=== PATIENT | female | born 1935 | race Caucasian/White ===

== ENCOUNTER → 2016-05-17 | Outpatient (CLI) | payer OTHER ==
[~2016-05-17] MED LIST: AMLO10TA2 PO; ASPEC81 PO; CRS20 PO; ERGO1CAP35 PO; HYDR-4715 PO; METO50TA7 PO; NTRGSL/4 UT; POTA10TA PO
[2016-05-17 13:02] LABS: HEMATOCRIT 51.7 % (37-47); MEAN CORPUSCULAR HGB CONC 35.2 g/dl (32-36); MEAN PLATELET VOLUME 11.1 fL (7.4-10.4); PLATELET COUNT 182 K/uL (130-400); RED BLOOD COUNT 5.68 M/uL (4.2-5.4); WHITE BLOOD COUNT 6.19 K/uL (4.8-10.8)
[2016-05-17 13:09] LABS: BLOOD UREA NITROGEN 21 mg/dl (7-18); BUN/CREATININE RATIO 13.8 (10-20); CALCIUM 9.9 mg/dl (8.5-10.1); CARBON DIOXIDE 27 mmol/L (21-32); CHLORIDE 108 mmol/L (98-107); GLUCOSE 97 mg/dl (70-99); PHOSPHORUS 2.5 mg/dl (2.5-4.9); POTASSIUM 3.5 mmol/L (3.5-5.1); SODIUM 145 mmol/L (136-145)
== END | disposition home or self-care (01) ==
LOC: C.LAB1850 11:29
PROVIDERS: ATTEND Internal Medicine Nephrology
DX: I10 Essential (primary) hypertension (principal); N25.81 Secondary hyperparathyroidism of renal origin; N18.3 Chronic kidney disease, stage 3 (moderate); E55.9 Vitamin D deficiency, unspecified; E21.3 Hyperparathyroidism, unspecified

== ENCOUNTER → 2016-05-21 | Outpatient (CLI) | payer OTHER ==
--- NOTE | 2016-05-21 20:28 | DIAGNOSTIC IMAGING REPORT ---
PARATHYROID IMAGING CLINICAL HISTORY: HYPERPARATHYROIDISM, UNSPECIFIED COMPARISON STUDY: No previous studies for comparison. FINDINGS: The patient was injected with 21.3 mCi of technetium 99m Cardiolite. 15 minute and three-hour postinjection imaging was performed. SPECT imaging was also acquired. There are no foci of increased activity viewed as suspicious for a parathyroid adenoma. IMPRESSION: No scintigraphic evidence of a parathyroid adenoma. Electronically signed by: Pete White M.D. 05/21/2016 8:27 PM Dictated Date/Time: 05/21/2016 8:24 PM
== END | disposition home or self-care (01) ==
LOC: C.NUCL 14:57
PROVIDERS: ATTEND Surgery
DX: E21.3 Hyperparathyroidism, unspecified (principal)

== ENCOUNTER → 2016-07-18 | Outpatient (CLI) | payer OTHER ==
--- NOTE | 2016-07-18 15:03 | DIAGNOSTIC IMAGING REPORT ---
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 COMPARISON: None. DISCUSSION: No fractures are visualized. No radiopaque foreign bodies are evident. There is Achilles insertional and plantar calcaneal spurring. There is minor calcification within the posterior plantar fascia. IMPRESSION: 1. No acute fractures 2. No destructive lesions 3. Calcaneal spurring 4. Posterior plantar fascial calcification 5. No foreign bodies identified Electronically signed by: Pete White M.D. 07/18/2016 3:02 PM Dictated Date/Time: 07/18/2016 3:01 PM
== END ==
LOC: C.RAD 14:36
PROVIDERS: ATTEND Internal Medicine
DX: M79.672 Pain in left foot (principal); M77.32 Calcaneal spur, left foot

== ENCOUNTER → 2016-08-13 | Outpatient (CLI) | payer OTHER ==
[2016-08-13 12:14] LABS: HEMATOCRIT 49.6 % (37-47); MEAN CELL VOLUME 90.5 fL (80-100); MEAN CORPUSCULAR HEMOGLOBIN 31.8 pg (25-34); MEAN CORPUSCULAR HGB CONC 35.1 g/dl (32-36); MEAN PLATELET VOLUME 11.4 fL (7.4-10.4); PLATELET COUNT 185 K/uL (130-400); RED BLOOD COUNT 5.48 M/uL (4.2-5.4); WHITE BLOOD COUNT 7.31 K/uL (4.8-10.8)
[2016-08-13 12:17] LABS: URINE APPEARANCE CLEAR (CLEAR); URINE BILIRUBIN NEG (NEG); URINE COLOR DK YELLOW; URINE NITRITE NEG (NEG); URINE PH 5.5 (4.5-7.5); URINE SPECIFIC GRAVITY 1.016 (1.000-1.030); UROBILINOGEN NEG (NEG)
[2016-08-13 12:23] LABS: MANUAL MICROSCOPIC REQUIRED? NO; REVIEW REQ? YES
[2016-08-13 12:38] LABS: URINE PROTIEN/CREAT RATIO 0.2 (0-0.2); URINE TOTAL PROTEIN 51.7 mg/dl (0-11.9)
[2016-08-13 12:51] LABS: BLOOD UREA NITROGEN 20 mg/dl (7-18); BUN/CREATININE RATIO 13.6 (10-20); CARBON DIOXIDE 26 mmol/L (21-32); CHLORIDE 107 mmol/L (98-107); GLUCOSE 105 mg/dl (70-99); PHOSPHORUS 2.3 mg/dl (2.5-4.9); POTASSIUM 3.2 mmol/L (3.5-5.1); SODIUM 142 mmol/L (136-145)
[2016-08-13 12:55] LABS: CALCIUM 10.3 mg/dl (8.5-10.1)
== END | disposition home or self-care (01) ==
LOC: C.LAB1850 10:23
PROVIDERS: ATTEND Internal Medicine Nephrology
DX: I12.9 Hypertensive chronic kidney disease with stage 1 through stage 4 chronic kidney disease, or unspecified chronic kidney disease (principal); N18.3 Chronic kidney disease, stage 3 (moderate); N25.81 Secondary hyperparathyroidism of renal origin; D75.1 Secondary polycythemia; E55.9 Vitamin D deficiency, unspecified

== ENCOUNTER → 2017-02-06 | Outpatient (CLI) | payer OTHER ==
[2017-02-06 14:58] LABS: HEMATOCRIT 50.2 % (37-47); MEAN CELL VOLUME 89.8 fL (80-100); MEAN CORPUSCULAR HEMOGLOBIN 31.7 pg (25-34); MEAN CORPUSCULAR HGB CONC 35.3 g/dl (32-36); PLATELET COUNT 186 K/uL (130-400); RED BLOOD COUNT 5.59 M/uL (4.2-5.4); WHITE BLOOD COUNT 8.85 K/uL (4.8-10.8)
[2017-02-06 15:05] LABS: BLOOD UREA NITROGEN 19 mg/dl (7-18); CALCIUM 10.2 mg/dl (8.5-10.1); CARBON DIOXIDE 25 mmol/L (21-32); CHLORIDE 109 mmol/L (98-107); CREATININE 1.38 mg/dl (0.60-1.20); GLUCOSE 100 mg/dl (70-99); POTASSIUM 3.6 mmol/L (3.5-5.1); SODIUM 142 mmol/L (136-145)
[2017-02-06 18:27] LABS: URINE APPEARANCE CLOUDY (CLEAR); URINE BILIRUBIN NEG (NEG); URINE EPITHELIAL CELL AUTO 0-5 /lpf (0-5); URINE NITRITE NEG (NEG); URINE PH 5.5 (4.5-7.5); URINE SPECIFIC GRAVITY 1.022 (1.000-1.030); UROBILINOGEN NEG (NEG)
[2017-02-06 18:31] LABS: MANUAL MICROSCOPIC REQUIRED? NO; REVIEW REQ? YES; URINE COLOR BROWN
== END | disposition home or self-care (01) ==
LOC: C.LABFOXMH 14:39
PROVIDERS: ATTEND Internal Medicine Hospice and Palliative Medicine
DX: N30.91 Cystitis, unspecified with hematuria (principal); R71.8 Other abnormality of red blood cells

== ENCOUNTER → 2017-08-08 | Outpatient (CLI) | payer OTHER ==
[~2017-08-08] MED LIST changes: -METO50TA7 PO; +METO50TA8 PO
[2017-08-08 10:19] LABS: HEMATOCRIT 50.5 % (37-47); HEMOGLOBIN 17.7 g/dL (12.0-16.0); MEAN CELL VOLUME 91.5 fL (80-100); MEAN CORPUSCULAR HEMOGLOBIN 32.1 pg (25-34); MEAN PLATELET VOLUME 11.3 fL (7.4-10.4); PLATELET COUNT 183 K/uL (130-400); RED CELL DISTRIBUTION WIDTH CV 13.8 % (11.5-14.5); RED CELL DISTRIBUTION WIDTH SD 46.6 fL (36.4-46.3); WHITE BLOOD COUNT 4.82 K/uL (4.8-10.8)
[2017-08-08 10:32] LABS: ALT/SGPT 40 U/L (12-78); BLOOD UREA NITROGEN 25 mg/dl (7-18); CALCIUM 10.2 mg/dl (8.5-10.1); CARBON DIOXIDE 29 mmol/L (21-32); CREATININE 1.45 mg/dl (0.60-1.20); GLUCOSE 93 mg/dl (70-99); POTASSIUM 3.5 mmol/L (3.5-5.1); SODIUM 141 mmol/L (136-145)
[2017-08-08 10:35] LABS: ALKALINE PHOSPHATASE 99 U/L (45-117); AST/SGOT 25 U/L (15-37); TOTAL PROTEIN 7.5 gm/dl (6.4-8.2)
== END | disposition home or self-care (01) ==
LOC: C.LAB1850 09:12
PROVIDERS: ATTEND Internal Medicine Nephrology
DX: I12.9 Hypertensive chronic kidney disease with stage 1 through stage 4 chronic kidney disease, or unspecified chronic kidney disease (principal); N25.81 Secondary hyperparathyroidism of renal origin; N18.3 Chronic kidney disease, stage 3 (moderate); E55.9 Vitamin D deficiency, unspecified

== ENCOUNTER 2022-07-01 14:28 | Inpatient (IN) ==
--- NOTE | 2022-07-01 15:42 | Emergency Department Note ---
History of Present Illness General Chief complaint: Finger Pain Stated complaint: RIGHT FINGER INJURY Time Seen by Provider: 07/01/22 14:54 History of Present Illness 87 year old female who presents to ED today with c/o right 5th finger infection. Patient states she bite her fingernail down to the cuticle. She developed signs of infection with redness and swelling on . She was started on Bactrim Saturday. Last night her finger turned black. She denies significant pain of the area. She reports limited ROM secondary to swelling. She denies fever/chills, nausea/vomiting. No history of diabetes. She is a former smoker. Home Medications Medication Instructions Recorded Confirmed Type amlodipine 10 mg tablet 10 mg PO DAILY 12/08/18 03/23/22 History hydralazine 25 mg tablet 25 mg PO BID 12/08/18 03/23/22 History nitroglycerin 0.4 mg sublingual 0.4 mg sublingual Q5M PRN chest 12/08/18 03/23/22 History tablet pain rosuvastatin 20 mg tablet 20 mg PO DAILY 02/25/19 03/23/22 History lactobacillus combination no.8 3 3,000 mmu cells PO UD 03/04/19 03/23/22 History billion cell capsule (Adult Probiotic) apixaban 5 mg tablet (Eliquis) 5 mg PO BID 12/08/19 03/23/22 History magnesium oxide 400 mg (241.3 mg 400 mg PO DAILY 01/05/20 03/23/22 History magnesium) tablet cinacalcet 30 mg tablet 30 mg PO DAILY #90 tabs 06/15/20 03/23/22 Rx potassium chloride 10 mEq 30 meq PO BID 06/15/20 03/23/22 History tablet,extended release cholecalciferol (vitamin D3) 50 50 mcg PO DAILY #90 caps 02/17/21 03/23/22 Rx mcg (2,000 unit) capsule (D3-2000) metoprolol succinate 50 mg 50 mg PO DAILY 01/18/22 03/23/22 History tablet,extended release 24 hr magnesium glycinate 400 mg PO 02/15/22 03/23/22 History Allergies Allergy/AdvReac Type Severity Reaction Status Date / Time adhesive Allergy Unknown RASH Verified 03/23/22 12:53 codeine Allergy Unknown SICK Verified 03/23/22 12:53 latex Allergy Unknown "Rash, Verified 03/23/22 12:53 welts" pineapple Allergy Unknown . Verified 03/23/22 12:53 Past Med/Surg History Medical History History of abdominal aortic aneurysm (AAA) Multiple thyroid nodules Vitamin D deficiency Surgical History History of appendectomy History of heart artery stent History of parathyroid surgery Family History Mother Colon cancer Father Heart problem Sister Heart problem Colon cancer Social History Smoking Status: Former smoker Hx Alcohol Use: Yes Alcohol type: other Preferred Language: Welsh marital status: / Feels Safe at Home: Yes Physical Exam Vital Signs Vital Signs - 24 hr 07/01/22 14:34 07/01/22 15:02 07/01/22 18:11 Temperature 36.5 C Temperature Source Temporal Artery Scan Pulse Rate 100 H Pulse Rate [Left Finger] 92 H 99 H Pulse Rhythm [Left Finger] Regular Regular Pulse Strength [Left Finger] Normal Normal Respiratory Rate 18 20 20 Respiratory Effort / Characteristics Non-Labored Spontaneous Non-Labored Spontaneous Respiratory Depth Normal Normal Normal Respiratory Pattern Regular Blood Pressure 116/80 Blood Pressure [Right Arm] 127/84 125/88 Blood Pressure Mean 92 Blood Pressure Mean [Right Arm] 98 100 Blood Pressure Position Sitting Blood Pressure Position [Right Arm] Sitting Sitting Pulse Oximetry 95 100 95 Oxygen Delivery Method Room Air Room Air Room Air Sepsis Recent Fever Within 48 Hours No Sepsis New/Unexplained Change in Mental Status No Sepsis Action Taken by Nursing No Action Required Constitutional: alert and oriented x3. no acute distress. Respiratory: lungs are clear to auscultation without wheezes, rhonchi, or rales bilaterally. equal chest rise. normal respiratory effort, no accessory muscle use. Cardiovascular: normal heart sounds without murmur. regular rate and rhythm. GI: abdomen is soft, nontender. nl bowel sounds present throughout. MSK: distal tip of right 5th finger necrotic with abscess and surrounding erythema and purulent drainage. Tender to palpation. No crepitus. Peripheral vascular: upper extremities warm and well perfused with palpable radial pulses. Psych:appropriate mood and affect. Course Administered Medications Vancomycin HCl 1,500 mg/ (Sodium Chloride) 530 mls @ 200 mls/hr IV NOW ONE Stop: 07/01/22 19:42 Last Admin: 07/01/22 18:41 Dose: 200 mls/hr Documented By: CINDA Discontinued Medications Ampicillin Sodium/Sulbactam Sodium 1,500 mg/ Sodium Chloride 104 mls @ 200 mls/hr IV NOW STA; Protocol Stop: 07/01/22 17:35 Last Infusion: 07/01/22 18:41 Dose: 0 mls/hr Documented By: Admin: 07/01/22 18:08 Dose: 200 mls/hr Documented By: CINDA Medical Decision Making Differential Diagnosis paronychia, abscess, osteomyelitis, gas gangrene as well as other pathologies Laboratory Data Attestation: I reviewed the patient's lab results. 07/01/22 14:50 07/01/22 14:50 Lab Results 07/01/22 07/01/22 07/01/22 Range/Units 14:50 14:50 14:50 WBC 9.03 (4.8-10.8) K/ul RBC 5.78 H (4.20-5.40) M/uL Hgb 16.8 H (12.0-16.0) g/dl Hct 49.4 H (37.0-47.0) % MCV 85.5 (80.0-100.0) fL MCH 29.1 (25.0-34.0) pg MCHC 34.0 (32.0-36.0) g/dL RDW Std Deviation 54.8 H (36.4-46.3) fL RDW Coeff of Margarita 18.6 H (11.5-14.5) % Plt Count 210 (130-400) K/uL MPV 11.1 (9.4-12.4) fL Immature Gran % (Auto) 0.3 % Neut % (Auto) 72.0 % Lymph % (Auto) 15.4 % [place] % (Auto) 11.5 % Eos % (Auto) 0.2 % Baso % (Auto) 0.6 % Neut # (Auto) 6.50 (1.40-6.50) K/uL Lymph # (Auto) 1.39 (1.2-3.4) K/uL [place] # (Auto) 1.04 H (0.11-0.59) K/uL Eos # (Auto) 0.02 (0-0.50) K/uL Baso # (Auto) 0.05 (0-0.2) K/uL Immature Gran # (Auto) 0.03 (0.01-0.20) K/uL Sodium 133 L (136-145) mmol/L Potassium 4.0 (3.5-5.1) mmol/L Chloride 101 (98-107) mmol/L Carbon Dioxide 20 L (21-32) mmol/L Anion Gap 12 H (3-11) BUN 28 H (6-23) mg/dl Creatinine 1.75 H (0.6-1.2) mg/dl Est Cr Clr Drug Dosing 21.9 ml/min Est GFR ( Amer) 30.2 ml/min Est GFR (Non-Af Amer) 26.1 ml/min BUN/Creatinine Ratio 16.0 (10-20) Glucose 88 (70-99(Fasting)) mg/dl Lactate (0.4-2.0) mmol/L Calcium 9.8 (8.5-10.1) mg/dl Total Bilirubin 1.2 H (0.2-1.0) mg/dl AST 24 (13-39) U/L ALT 20 (7-52) U/L Alkaline Phosphatase 86 (34-104) U/L Total Protein 8.1 (6.0-8.3) gm/dl Albumin 4.5 (3.4-5.0) gm/dl Globulin 3.6 (2.5-4.0) gm/dl Albumin/Globulin Ratio 1.3 (0.9-2) Procalcitonin < 0.05 (0-0.5) ng/ml SARS-CoV-2, RNA, NAAT (NEGATIVE) 07/01/22 07/01/22 Range/Units 16:14 17:21 WBC (4.8-10.8) K/ul RBC (4.20-5.40) M/uL Hgb (12.0-16.0) g/dl Hct (37.0-47.0) % MCV (80.0-100.0) fL MCH (25.0-34.0) pg MCHC (32.0-36.0) g/dL RDW Std Deviation (36.4-46.3) fL RDW Coeff of Margarita (11.5-14.5) % Plt Count (130-400) K/uL MPV (9.4-12.4) fL Immature Gran % (Auto) % Neut % (Auto) % Lymph % (Auto) % [place] % (Auto) % Eos % (Auto) % Baso % (Auto) % Neut # (Auto) (1.40-6.50) K/uL Lymph # (Auto) (1.2-3.4) K/uL [place] # (Auto) (0.11-0.59) K/uL Eos # (Auto) (0-0.50) K/uL Baso # (Auto) (0-0.2) K/uL Immature Gran # (Auto) (0.01-0.20) K/uL Sodium (136-145) mmol/L Potassium (3.5-5.1) mmol/L Chloride (98-107) mmol/L Carbon Dioxide (21-32) mmol/L Anion Gap (3-11) BUN (6-23) mg/dl Creatinine (0.6-1.2) mg/dl Est Cr Clr Drug Dosing ml/min Est GFR ( Amer) ml/min Est GFR (Non-Af Amer) ml/min BUN/Creatinine Ratio (10-20) Glucose (70-99(Fasting)) mg/dl Lactate 1.2 (0.4-2.0) mmol/L Calcium (8.5-10.1) mg/dl Total Bilirubin (0.2-1.0) mg/dl AST (13-39) U/L ALT (7-52) U/L Alkaline Phosphatase (34-104) U/L Total Protein (6.0-8.3) gm/dl Albumin (3.4-5.0) gm/dl Globulin (2.5-4.0) gm/dl Albumin/Globulin Ratio (0.9-2) Procalcitonin (0-0.5) ng/ml SARS-CoV-2, RNA, NAAT NEGATIVE (NEGATIVE) Imaging Data Attestation: I personally reviewed and interpreted this imaging study as follows: My Impression: Right 5th finger xray per my interpretation demonstrates no acute fracture. No gas. Radiologist's Impression: Finger X-Ray 07/01/22 15:22 XR finger(s) RT min 2V CLINICAL HISTORY: right 5th fingerinfection. COMPARISON STUDY: None. FINDINGS: Soft tissue swelling within the distal right fifth finger. No destructive changes to suggest an osteomyelitis. No fracture or dislocation. Mild osteoarthritis. IMPRESSION: Distal soft tissue swelling within the right fifth finger. No underlying bony abnormality. ACT 112: Negative or not required by law. Electronically signed by: Champ Payne M.D. 07/01/2022 3:41 PM MDM Narrative 87 year old female who presents to ED today with c/o right 5th finger infection. Review of pertinent visits and patient history performed. Vital signs in ED demonstrate mild tachycardia otherwise within normal limits, afebrile. Given presentation, IV access was established and labs were drawn. CBC without evidence of leukocytosis or bandemia. Hgb 16 consistent with history of polycythemia. CMP demonstrates mild hyponatremia 133. Creatinine mildly elevated at 1.7 (from 1.4 on 06/25). Lactate and Procal negative. A right finger Xray was obtained and unremarkable. Clinically, patient is nontoxic appearing in no acute distress. She is afebrile. Right 5th finger concerning for cellulitis with abscess and evidence of necrotic tissue. Erythema and edema extends to MCP joint. Given clinical presentation as well as failed outpatient antibiotics with concern for possible osteomyelitis, I feel admission to hospital for further work up and IV antibiotics is warranted. Discussed with patient who verbalized understanding. Case was discussed with hospitalist, Dr. Curiel, who reviewed case and graciously accepted patient to his service. Patient was given empiric Vancomycin and Unasyn while in ED. She declined need for pain medications. Patient was admitted to hospital in stable condition. Case was discussed with attending, Dr. Hernandez who agrees with work up and treatment plan. Impression & Plan Cellulitis of right hand Discharge Plan Visit Data Chief Complaint: Finger Pain Stated Complaint: RIGHT FINGER INJURY ED Provider: La Hernandez ED Midlevel Provider: Fabiola Syed Discharge Problem: Cellulitis of right hand Patient Disposition: Admitted As Inpatient Forms Stand Alone Forms: My [facility] [employer] Prescriptions Prescriptions: No Action hydralazine 25 mg tablet 25 mg PO BID nitroglycerin 0.4 mg tablet, sublingual 0.4 mg SL Q5M PRN (Reason: chest pain) amlodipine 10 mg tablet 10 mg PO DAILY potassium chloride 10 mEq tablet extended release 30 meq PO BID Adult Probiotic 3 billion cell capsule 3,000 mmu cells PO UD rosuvastatin 20 mg tablet 20 mg PO DAILY magnesium oxide 400 mg (241.3 mg magnesium) tablet 400 mg PO DAILY cholecalciferol (vitamin D3) [D3] 50 mcg (2,000 unit) capsule 50 mcg PO DAILY Qty: 90 2RF Eliquis 5 mg tablet 5 mg PO BID cinacalcet 30 mg tablet 30 mg PO DAILY Qty: 90 3RF magnesium glycinate 100 mg magnesium capsule 400 mg PO metoprolol succinate 50 mg tablet extended release 24 hr 50 mg PO DAILY Referrals Referrals: Juan Mcqueen [Primary Care Provider] -
--- NOTE | 2022-07-01 15:43 | XRay Report ---
XR finger(s) RT min 2V CLINICAL HISTORY: right 5th fingerinfection. COMPARISON STUDY: None. FINDINGS: Soft tissue swelling within the distal right fifth finger. No destructive changes to sugges t an osteomyelitis. No fracture or dislocation. Mild osteoarthritis. IMPRESSION: Distal soft tissue swelling within the right fifth finger. No underlying bony abnormalit y. ACT 112: Negative or not required by law. Electronically signed by: Champ Payne M.D. 07/01/2022 3:41 PM
[2022-07-01 16:12] LABS: Basophils # (auto) 0.05 K/uL (0-0.2); Basophils % (auto) 0.6 %; Eosinophils # (auto) 0.02 K/uL (0-0.50); Eosinophils % (auto) 0.2 %; Hematocrit (blood only) 49.4 % (37.0-47.0); Hemoglobin 16.8 g/dl (12.0-16.0); Immature Granulocytes # (auto) 0.03 K/uL (0.01-0.20); Immature Granulocytes % (auto) 0.3 %; Lymphocytes # (auto) 1.39 K/uL (1.2-3.4); Lymphocytes % (auto) 15.4 %; Mean Corpuscular Hemoglobin 29.1 pg (25.0-34.0); Mean Corpuscular Volume 85.5 fL (80.0-100.0); Mean Platelet Volume 11.1 fL (9.4-12.4); Monocytes # (auto) 1.04 K/uL (0.11-0.59); Monocytes % (auto) 11.5 %; Platelet Count 210 K/uL (130-400); RDW Coefficient of Variation 18.6 % (11.5-14.5); RDW Standard Deviation 54.8 fL (36.4-46.3); Red Blood Count 5.78 M/uL (4.20-5.40); White Blood Count 9.03 K/ul (4.8-10.8)
[2022-07-01 16:23] LABS: Albumin Globulin Ratio 1.3 (0.9-2); Albumin Level 4.5 gm/dl (3.4-5.0); Bilirubin,Total 1.2 mg/dl (0.2-1.0); Calcium 9.8 mg/dl (8.5-10.1); Creatinine Clr Calc Pharmacy 21.9 ml/min; Est GFR (African American) 30.2 ml/min; Est GFR (Non-African American) 26.1 ml/min; Globulin 3.6 gm/dl (2.5-4.0); Total Protein 8.1 gm/dl (6.0-8.3)
[2022-07-01] MEDS ORDERED: AMPICILLIN/SULBACTAM SOD 1,500 MG in 0.9 % SODIUM CHLORIDE 100 ML IV STA (17:04)
[2022-07-01] MEDS ORDERED: VANCOMYCIN HCL 1,500 MG in SODIUM CHLORIDE 0.9% 500 ML IV ONE (17:04)
[2022-07-01] MEDS ORDERED: VANCOMYCIN CONSULT ACTIVE PRN ×2 (17:04→19:47)
--- NOTE | 2022-07-01 17:20 | History & Physical Report ---
Date of Service July 01, 2022 Assessment & Plan (1) Cellulitis of right hand: Plan: Right fifth distal cellulitis, dominant hand No leukocytosis Hemoglobin 16.8, baseline 16.517.3 with a history of polycythemia Sodium, potassium normal Procalcitonin normal Finger x-ray: Digital soft tissue swelling within the right fifth finger, no underlying bony abnormality Photo of finger at time of admission attached to H&P physical exam MRI pending, patient does have additional erythema at the MCP. Full range of motion without pain at bedside assessment. Cap refill is brisk proximal to the DIP CAD with history of LAD stent Continue statin, rosuvastatin Patient is not on an CATHERINE/ARB/spironolactone or antiplatelet Former tobacco use Patient reports she has followed with lead auditor and when her Eliquis was started she was told to stop taking aspirin. Unclear if she has a RAMEZ or bare- metal stent, she will have her stent card brought in from home if available. She has not had any chest pain or ischemia recently. AAA Repair 2006 -With Dr. Nguyen, no problems since. CKD 3 Baseline creatinine around 1.9, admitting creatinine 1.75 Renal impairment due to vascular disease and hypertension With history of left renal artery stenosis not amenable to [place] [facility] [place] right renal artery A-fib Rate controlled, no RVR Is in rate controlled A-fib on admission No evidence of RVR, acute ischemia, or new dysrhythmia. Continue Eliquis. Hold a.m. dose pending surgical evaluation Hypertension BP previously well controlled Continue amlodipine 10 mg daily Continue hydralazine 25 mg twice daily Continue metoprolol 50 mg succinate daily Hyperlipidemia Continue rosuvastatin Hyperparathyroidism S/p resection of lower thyroid gland 2005 Continue Cinacalcet, as outpatient PTH was uptrending DVT prophylaxis: Anticoagulated Diet: N.p.o. at midnight, heart healthy on admission Disposition: Medical/surgical, history of A-fib but no acute ischemia or RVR. If develops RVR transfer to telemetry CODE STATUS: Full code discussed with patient at bedside (2) CAD (coronary artery disease): (3) Polycythemia: (4) Chronic kidney disease, stage 3: (5) Hypertension: (6) Secondary hyperparathyroidism: History of Present Illness Primary Care Provider: Juan Ivory is an 87-year-old female with past medical history of Kriss's, CAD, former tobacco use, polycythemia, CKD 3, hypertension who presented to the ER with a right fifth finger infection after she was bite in her fingernails down to the cuticle. Had redness and swelling for the last 4 days, started Bactrim 2 days ago but overnight her finger turned black. Has no pain, no fever or chills Monika is seen at the bedside. Reports symptoms started last Saturday. Thr morning was seen by PA at [facility] for R 5th digit swelling and was prescribed a topical antibiotic which she used and . Also used triple antibiotic and didn't seem to get much worse until Saturday morning saw the PA again. Was but on Bactrim DS which she has taken for 2 day hartmann dtolearing well. In the last two days the finger has gotten more purple/black instead of red and swollen. Also has some redness and swelling but no pain at the 5th MCP. No RoM pain. Severe diarrhea with Keflex, but did not have a skin or respiratory reaction to this On eliquis for Afib. Took eliquis this morning. Does not feel her A-fib, is not sure if she is in it or not. Denies any fever, chills, sweats, chest pain, chest pressure hydralazine changed to 10am/pm toprol 50 and takes 25mg BID succinate rosuvatatin 20 cincalcet 30mg Medical History: Reviewed Medications: Reviewed Surgical History: Reviewed Family history: Reviewed Allergies: Reviewed Social History: No current tobacco/etoh. Code Status: Full Code Allergies Allergy/AdvReac Type Severity Reaction Status Date / Time adhesive Allergy Unknown RASH Verified 03/23/22 12:53 codeine Allergy Unknown SICK Verified 03/23/22 12:53 latex Allergy Unknown "Rash, Verified 03/23/22 12:53 welts" pineapple Allergy Unknown . Verified 03/23/22 12:53 Home Medications Medication Instructions Recorded Confirmed Type amlodipine 10 mg tablet 10 mg PO DAILY 12/08/18 03/23/22 History hydralazine 25 mg tablet 25 mg PO BID 12/08/18 03/23/22 History nitroglycerin 0.4 mg sublingual 0.4 mg sublingual Q5M PRN chest 12/08/18 03/23/22 History tablet pain rosuvastatin 20 mg tablet 20 mg PO DAILY 02/25/19 03/23/22 History lactobacillus combination no.8 3 3,000 mmu cells PO UD 03/04/19 03/23/22 History billion cell capsule (Adult Probiotic) apixaban 5 mg tablet (Eliquis) 5 mg PO BID 12/08/19 03/23/22 History magnesium oxide 400 mg (241.3 mg 400 mg PO DAILY 01/05/20 03/23/22 History magnesium) tablet cinacalcet 30 mg tablet 30 mg PO DAILY #90 tabs 06/15/20 03/23/22 Rx potassium chloride 10 mEq 30 meq PO BID 06/15/20 03/23/22 History tablet,extended release cholecalciferol (vitamin D3) 50 50 mcg PO DAILY #90 caps 02/17/21 03/23/22 Rx mcg (2,000 unit) capsule (D3-2000) metoprolol succinate 50 mg 50 mg PO DAILY 01/18/22 03/23/22 History tablet,extended release 24 hr magnesium glycinate 400 mg PO 02/15/22 03/23/22 History Past Med/Surg History Medical History History of abdominal aortic aneurysm (AAA) Multiple thyroid nodules Vitamin D deficiency Surgical History History of appendectomy History of heart artery stent History of parathyroid surgery Family History Mother Colon cancer Father Heart problem Sister Heart problem Colon cancer Social History Smoking Status: Former smoker Hx Alcohol Use: Yes Alcohol type: other Preferred Language: Thai marital status: / Feels Safe at Home: Yes Review of Systems Review of Systems: All systems reviewed & are unremarkable except as noted in HPI & below Physical Exam Physical Exam: General: A&Ox3. NAD. Cooperative. HEENT: Atraumatic, normocephalic. Vision/hearing intact. Pulm: CTAB A&P. -wheezes, -rales, -rhonchi. Symmetrical chest rise. No increased work of breathing. No respiratory distress. Cardiac: irir, -mrg. Radial pulses intact and symmetrical. Abdominal: Nontender, nondistended, soft. BS present. Ext: R fifth digit with photo below. Passive RoM and active RoM with finger flexion/extension intact with 5/5 strength. Sensation absent over necrotic region. Purulent drainage present. Sensatino to soft touch returns at the PIP. Cap refill brisk just proximal to the dip. MCP with mild swelling and overlying erythema. No streaking. Results & Data Results & Data Vital Signs (Past 12 Hours) Vital Signs Temp Pulse Pulse Resp BP BP Pulse Ox 07/01/22 15:02 92 H 20 127/84 100 07/01/22 14:34 36.5 C 100 H 18 116/80 95 O2 Del Method 07/01/22 15:02 Room Air 07/01/22 14:34 Room Air PG Care Time/CCT Total # of Minutes Spent Total Time Spent with Patient: Total time spent is greater than 50% in coordination of care (as documented) at patient's floor/unit and/or counseling patient: Coding Level of Care Code 59274 INT INP/OBS CARE 2/55MIN Diagnoses Cellulitis of right hand L03.113 CAD (coronary artery disease) I25.10 Polycythemia D75.1 Chronic kidney disease, stage 3 N18.3 Hypertension I10 Secondary hyperparathyroidism N25.81
[2022-07-01] MEDS ORDERED: ONDANSETRON INJ 2 MG/ML 2 ML VIAL IV PRN (19:47)
[2022-07-01] MEDS ORDERED: ACETAMINOPHEN 325 MG TAB PO PRN (19:47)
[2022-07-01] MEDS ORDERED: NITROGLYCERIN SL 0.4 MG/TAB TAB SL PRN (19:47)
[2022-07-01] MEDS ORDERED: POTASSIUM CHLORIDE 10 MEQ TABCR PO SCH (21:00)
[2022-07-01] MEDS ORDERED: hydrALAZINE HCL 25 MG TAB PO SCH (21:00)
[2022-07-01] MEDS: AMPICILLIN/SULBACTAM SOD 3,000 MG in 0.9 % SODIUM CHLORIDE 100 ML IV SCH (21:47)
[2022-07-01] MEDS: POTASSIUM CHLORIDE CRTAB 20 MEQ TABCR PO SCH (22:01)
[2022-07-01] MEDS: hydrALAZINE 10 MG TAB PO SCH (22:02)
[2022-07-01] MEDS: APIXABAN 2.5 MG TAB PO SCH (22:02)
[2022-07-02] MEDS: LACTATED RINGER'S 1,000 ML IV SCH ×2 (00:14→19:08)
--- NOTE | 2022-07-02 00:21 | Magnetic Resonance Report ---
Exam(s): MRI RIGHT HAND Without Contrast EXAM: MR Right Upper Extremity Without Intravenous Contrast, Hand CLINICAL HISTORY: Reason for exam: dominant hand cellulitis, ?osteo/DIP involvement. TECHNIQUE: Multiplanar magnetic resonance images of the right hand without intravenous contrast. COMPARISON: No relevant prior studies available. FINDINGS: LIGAMENTS: Medial collateral: Unremarkable. Lateral collateral: Unremarkable. Radial collateral: Unremarkable. Ulnar collateral: Unremarkable. TENDONS: Flexor: Unremarkable. Extensor: Unremarkable. Muscles: Unremarkable. Fluid: Unremarkable. No joint effusion. Cartilage: Unremarkable. Bones/joints: See below. Soft tissues: There is skin discontinuity over the fifth distal phalanx along the palmar aspect. This is associated with increased T2 signal and decreased T1 signal within the underlying bone (image 5 series 10). There are some questionable erosive changes involving the bone. IMPRESSION: Findings concerning for osteomyelitis of the fifth distal phalanx without definite involvement of the distal interphalangeal joint. Electronically signed by: Lyndon Florentino MD 07/02/22 00:21 AM
[2022-07-02] MEDS: AMPICILLIN/SULBACTAM SOD 3,000 MG in 0.9 % SODIUM CHLORIDE 100 ML IV SCH ×2 (06:04→17:04)
[2022-07-02 06:45] LABS: Basophils # (auto) 0.05 K/uL (0-0.2); Basophils % (auto) 1.1 %; Eosinophils # (auto) 0.05 K/uL (0-0.50); Eosinophils % (auto) 1.1 %; Hematocrit (blood only) 45.2 % (37.0-47.0); Hemoglobin 15.4 g/dl (12.0-16.0); Immature Granulocytes # (auto) 0.02 K/uL (0.01-0.20); Immature Granulocytes % (auto) 0.5 %; Lymphocytes # (auto) 1.04 K/uL (1.2-3.4); Lymphocytes % (auto) 23.4 %; Mean Corpuscular Hemoglobin 29.4 pg (25.0-34.0); Mean Corpuscular Hgb Conc 34.1 g/dL (32.0-36.0); Mean Corpuscular Volume 86.4 fL (80.0-100.0); Mean Platelet Volume 10.6 fL (9.4-12.4); Monocytes # (auto) 0.65 K/uL (0.11-0.59); Monocytes % (auto) 14.6 %; Neutrophils # (auto) 2.63 K/uL (1.40-6.50); Neutrophils % (auto) 59.3 %; Platelet Count 169 K/uL (130-400); RDW Coefficient of Variation 17.6 % (11.5-14.5); RDW Standard Deviation 55.6 fL (36.4-46.3); Red Blood Count 5.23 M/uL (4.20-5.40); White Blood Count 4.44 K/ul (4.8-10.8)
[2022-07-02 06:50] LABS: BUN Creatinine Ratio 16.4 (10-20); Calcium 8.4 mg/dl (8.5-10.1); Creatinine Clr Calc Pharmacy 27.3 ml/min; Est GFR (African American) 35.9 ml/min; Est GFR (Non-African American) 30.9 ml/min; Potassium 3.7 mmol/L (3.5-5.1)
--- NOTE | 2022-07-02 07:26 | Hospitalist Progress Note ---
Date of Service July 02, 2022 Assessment & Plan (1) Cellulitis of right hand: Plan: Ms. Cordova is an 87 y/o female with a PMHx of CAD, former tobacco use, polycy themia, CKD3, HTN, and Kriss's presented with distal cellulitis of the right fifth digit non-responsive to oral Bactrim found to have osteomyelitis now on IV abx with Vanc for MRSA coverage. #Right fifth distal osteomyelitis, dominant hand No leukocytosis. Hemoglobin 16.8, baseline 16.517.3 with a history of polycythemia. Sodium, potassium normal. Procalcitonin normal. Photo of finger at time of admission attached above Imaging: Finger x-ray: Digital soft tissue swelling within the right fifth finger, no underlying bony abnormality MRI findings concerning for osteomyelitis of the 5th distal phalanx without definite involvement of the distal interphalangeal joint [] IV abx amp/sulbactam, added vanc for MRSA coverage [] surgery on board, plan for procedure tomorrow [] npo at midnight #CAD with history of LAD stent Continue statin, rosuvastatin, Patient is not on an CATHERINE/ARB/spironolactone or antiplatelet. Former tobacco use Patient reports she has followed with corporate paralegal and when her Eliquis was started she was told to stop taking aspirin. Unclear if she has a RAMEZ or bare- metal stent, she will have her stent card brought in from home if available. She has not had any chest pain or ischemia recently. #AAA Repair 2006 -With Dr. Nguyen, no problems since. #CKD 3 with hx of left renal artery stenosis not amenable to angioplasty noted at [facility] Baseline creatinine around 1.9, admitting creatinine 1.75 - improving. Renal impairment due to vascular disease and hypertension #A-fib Rate controlled a fib, no RVR, acute ischemia, or new dysrhythmia seen on EKG. Holding Eliquis as patient will be having a procedure in the near future. #Hypertension BP previously well controlled. Continue amlodipine 10 mg daily. Continue hydralazine 25 mg twice daily. Continue metoprolol 25 mg succinate BID #Hyperlipidemia Continue rosuvastatin #Hyperparathyroidism s/p resection of lower thyroid gland 2005 Continue Cinacalcet, as outpatient PTH was uptrending DVT prophylaxis: Anticoagulated Diet: N.p.o. at midnight, heart healthy on admission Disposition: Medical/surgical, history of A-fib but no acute ischemia or RVR. If develops RVR transfer to telemetry CODE STATUS: Full code discussed with patient at bedside (2) CAD (coronary artery disease): (3) Polycythemia: (4) Chronic kidney disease, stage 3: (5) Hypertension: (6) Secondary hyperparathyroidism: Admission and Anticipated Discharge Date Admission Date: July 01, 2022 Supervising Physician Co-Signing Physician Notes 87 yr old female with osteomyelitis of right digit. AC currently on hold. Orthopedics consulting with hand surgeon for possible debridement or amputation tomorrow. Patient NPO at midnight. Patient denies pain. I personally examined the patient and verified all low points of history and exam, discussed case, and agree with decision making and plan documented by Dr. Paez. Subjective Patient doing well this AM. Notes that her finger has improved. No pain. No fevers or chills. Review of Systems Review of Systems: See HPI Physical Exam Physical Exam: General: A&Ox3. NAD. Cooperative. HEENT: Atraumatic, normocephalic. Vision/hearing intact. Pulm: CTAB A&P. -wheezes, -rales, -rhonchi. Symmetrical chest rise. No increased work of breathing. No respiratory distress. Cardiac: irir, -mrg. Radial pulses intact and symmetrical. Abdominal: Nontender, nondistended, soft. BS present. Ext: R fifth digit with photo below. Active ROM with finger flexion/extension intact. MCP with mild swelling and overlying erythema. No streaking. Results & Data Results & Data Vital Signs (Past 12 Hours) Vital Signs Temp Pulse Resp BP Pulse Ox O2 Del Method 07/01/22 20:10 36.3 C L 104 H 16 131/90 95 Room Air 07/01/22 22:01 86 107/69 Laboratory Results 07/02/22 05:34 07/02/22 05:34 Diagnostic Findings Finger X-Ray 07/01/22 15:22 XR finger(s) RT min 2V CLINICAL HISTORY: right 5th finger infection. COMPARISON STUDY: None. FINDINGS: Soft tissue swelling within the distal right fifth finger. No destructive changes to suggest an osteomyelitis. No fracture or dislocation. Mild osteoarthritis. IMPRESSION: Distal soft tissue swelling within the right fifth finger. No underlying bony abnormality. Hand MRI 07/01/22 19:47 Exam(s): MRI RIGHT HAND Without Contrast EXAM: MR Right Upper Extremity Without Intravenous Contrast, Hand CLINICAL HISTORY: Reason for exam: dominant hand cellulitis, ?osteo/DIP involvement. TECHNIQUE: Multiplanar magnetic resonance images of the right hand without intravenous contrast. COMPARISON: No relevant prior studies available. FINDINGS: LIGAMENTS: Medial collateral: Unremarkable. Lateral collateral: Unremarkable. Radial collateral: Unremarkable. Ulnar collateral: Unremarkable. TENDONS: Flexor: Unremarkable. Extensor: Unremarkable. Muscles: Unremarkable. Fluid: Unremarkable. No joint effusion. Cartilage: Unremarkable. Bones/joints: See below. Soft tissues: There is skin discontinuity over the fifth distal phalanx along the palmar aspect. This is associated with increased T2 signal and decreased T1 signal within the underlying bone (image 5 series 10). There are some questionable erosive changes involving the bone. IMPRESSION: Findings concerning for osteomyelitis of the fifth distal phalanx without definite involvement of the distal interphalangeal joint. Resident Activity Tracking Resident Involvement: Resident Care Provided Care Provided: Adult [facility] Medicine
[2022-07-02] MEDS ORDERED: VANCOMYCIN CONSULT ACTIVE PRN (08:04)
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
[2022-07-02] MEDS: hydrALAZINE 10 MG TAB PO SCH ×2 (08:49→20:22)
[2022-07-02] MEDS: amLODIPine BESYLATE 5 MG TAB PO SCH (08:50)
[2022-07-02] MEDS ORDERED: ROSUVASTATIN CALCIUM 20 MG TAB PO SCH ×2 (09:00→21:00)
[2022-07-02] MEDS ORDERED: CINACALCET HCL 30 MG TAB PO SCH (09:00)
[2022-07-02] MEDS ORDERED: METOPROLOL SUCC 50MG EXT REL TAB PO SCH (09:00)
[2022-07-02] MEDS ORDERED: Nursing to Pharmacy Communication SCH ×2 (09:30→14:30)
[2022-07-02] MEDS: APIXABAN 2.5 MG TAB PO SCH (09:52)
[2022-07-02] MEDS: METOPROLOL SUCC 25MG EXT REL TAB PO SCH ×2 (09:52→20:22)
[2022-07-02] MEDS: VANCOMYCIN HCL 1,000 MG in SODIUM CHLORIDE 0.9% 250 ML IV SCH (10:31)
[2022-07-02] MEDS: POTASSIUM CHLORIDE CRTAB 20 MEQ TABCR PO SCH ×2 (10:33→20:23)
--- NOTE | 2022-07-02 10:54 | Electrocardiogram Report ---
Test Reason : Blood Pressure : / mmHG Vent. Rate : 100 BPM Atrial Rate : 111 BPM P-R Int : 000 ms QRS Dur : 096 ms QT Int : 370 ms P-R-T Axes : 000 004 -16 degrees QTc Int : 477 ms Atrial fibrillation Incomplete right bundle branch block Nonspecific T wave abnormality Abnormal ECG When compared with ECG of 22-MAR-2005 06:30, Atrial fibrillation has replaced Sinus rhythm Vent. rate has increased BY 44 BPM Incomplete right bundle branch block is now Present Confirmed by Lasha Wu ([id number]) on 07/02/2022 10:53:45 AM Referred By: REFERRED SELF Confirmed By:Daniel Wu
[2022-07-02] MEDS: CINACALCET HCL 30 MG TAB PO SCH (12:33)
[2022-07-02] MEDS ORDERED: VANCOMYCIN HCL 1,000 MG in SODIUM CHLORIDE 0.9% 500 ML IV SCH (18:00)
[2022-07-03] MEDS: LACTATED RINGER'S 1,000 ML IV SCH ×2 (00:07→13:07)
[2022-07-03] MEDS: AMPICILLIN/SULBACTAM SOD 3,000 MG in 0.9 % SODIUM CHLORIDE 100 ML IV SCH ×4 (05:30→23:55)
--- NOTE | 2022-07-03 06:42 | Hospitalist Progress Note ---
Date of Service July 03, 2022 Assessment & Plan (1) Cellulitis of right hand: Plan: Ms. Cordova is an 87 y/o female with a PMHx of CAD, former tobacco use, polycy themia, CKD3, HTN, and Kriss's presented with distal cellulitis of the right fifth digit non-responsive to oral Bactrim found to have osteomyelitis now on IV abx with Vanc for MRSA coverage with plan for procedure today. #Right fifth distal osteomyelitis, dominant hand No leukocytosis. Hemoglobin 16.8, baseline 16.517.3 with a history of polycythemia. Sodium, potassium normal. Procalcitonin normal. Photo of finger at time of admission attached above Imaging: Finger x-ray: Digital soft tissue swelling within the right fifth finger, no underlying bony abnormality MRI findings concerning for osteomyelitis of the 5th distal phalanx without definite involvement of the distal interphalangeal joint [] IV abx amp/sulbactam, added vanc for MRSA coverage [] surgery on board, plan for procedure [] npo for procedure #CAD with history of LAD stent Continue statin, rosuvastatin, Patient is not on an CATHERINE/ARB/spironolactone or antiplatelet. Former tobacco use Patient reports she has followed with custodial services manager and when her Eliquis was started she was told to stop taking aspirin. Unclear if she has a RAMEZ or bare- metal stent, she will have her stent card brought in from home if available. She has not had any chest pain or ischemia recently. #AAA Repair [address] Nguyen, no problems since. #CKD 3 with hx of left renal artery stenosis not amenable to angioplasty noted at [facility] Baseline creatinine around 1.9, admitting creatinine 1.75 - improving. Renal impairment due to vascular disease and hypertension #A-fib Rate controlled a fib, no RVR, acute ischemia, or new dysrhythmia seen on EKG. Holding Eliquis as patient will be having a procedure in the near future. #Hypertension BP previously well controlled. Continue amlodipine 10 mg daily. Continue hydralazine 25 mg twice daily. Continue metoprolol 25 mg succinate BID #Hyperlipidemia Continue rosuvastatin #Hyperparathyroidism s/p resection of lower thyroid gland 2005 Continue Cinacalcet, as outpatient PTH was uptrending DVT prophylaxis: Eliquis held as feng-operative, Patient ambulating frequently, SCDs Diet: NPO for procedure, heart healthy on admission Disposition: Medical/surgical, history of A-fib but no acute ischemia or RVR. If develops RVR transfer to telemetry CODE STATUS: Full code discussed with patient at bedside (2) CAD (coronary artery disease): (3) Polycythemia: (4) Chronic kidney disease, stage 3: (5) Hypertension: (6) Secondary hyperparathyroidism: (7) Acute osteomyelitis of phalanx of digit of hand: Admission and Anticipated Discharge Date Admission Date: July 01, 2022 Supervising Physician Co-Signing Physician Notes Patient s/p I&D in OR today, thankfully infection limited to soft tissue. Resume AC. Pain has been controlled. I personally examined the patient and verified all low points of history and exam, discussed case, and agree with decision making and plan documented by Dr. Paez. Subjective Patient doing well this AM. Notes that her finger has improved. No pain. No fevers or chills. Review of Systems Review of Systems: See HPI Physical Exam Physical Exam: General: A&Ox3. NAD. Cooperative. HEENT: Atraumatic, normocephalic. Vision/hearing intact. Pulm: CTAB A&P. -wheezes, -rales, -rhonchi. Symmetrical chest rise. No increased work of breathing. No respiratory distress. Cardiac: irir, -mrg. Radial pulses intact and symmetrical. Abdominal: Nontender, nondistended, soft. Ext: R fifth digit improved on exam today. Good cap refill. Active ROM with finger flexion/extension intact. MCP with mild swelling and overlying erythema. No streaking. Results & Data Results & Data Vital Signs (Past 12 Hours) Vital Signs Temp Pulse Resp BP O2 Del Method 07/02/22 20:21 36.8 C 108 H 20 126/79 Room Air Laboratory Results 07/03/22 05:48 07/03/22 05:48 Resident Activity Tracking Resident Involvement: Resident Care Provided Care Provided: Adult Hospital Medicine
[2022-07-03 06:43] LABS: Hematocrit (blood only) 45.8 % (37.0-47.0); Hemoglobin 15.5 g/dl (12.0-16.0); Mean Corpuscular Hemoglobin 29.1 pg (25.0-34.0); Mean Corpuscular Hgb Conc 33.8 g/dL (32.0-36.0); Mean Corpuscular Volume 86.1 fL (80.0-100.0); Mean Platelet Volume 10.7 fL (9.4-12.4); Platelet Count 175 K/uL (130-400); RDW Coefficient of Variation 18.1 % (11.5-14.5); RDW Standard Deviation 55.9 fL (36.4-46.3); Red Blood Count 5.32 M/uL (4.20-5.40); White Blood Count 4.12 K/ul (4.8-10.8)
[2022-07-03 06:53] LABS: BUN Creatinine Ratio 14.1 (10-20); Calcium 8.5 mg/dl (8.5-10.1); Creatinine Clr Calc Pharmacy 32.4 ml/min; Est GFR (African American) 44.1 ml/min; Est GFR (Non-African American) 38.1 ml/min; Magnesium 1.7 mg/dl (1.7-2.4); Potassium 3.7 mmol/L (3.5-5.1)
[2022-07-03] MEDS: POTASSIUM CHLORIDE CRTAB 20 MEQ TABCR PO SCH ×2 (08:54→20:15)
[2022-07-03] MEDS: METOPROLOL SUCC 25MG EXT REL TAB PO SCH ×2 (08:55→20:15)
[2022-07-03] MEDS: hydrALAZINE 10 MG TAB PO SCH ×2 (08:55→20:15)
[2022-07-03] MEDS: amLODIPine BESYLATE 5 MG TAB PO SCH (08:55)
[2022-07-03] MEDS: VANCOMYCIN HCL 1,000 MG in SODIUM CHLORIDE 0.9% 250 ML IV SCH (09:20)
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
[2022-07-03] MEDS: CINACALCET HCL 30 MG TAB PO SCH (13:08)
--- NOTE | 2022-07-03 16:56 | History & Physical Bridge Note ---
Date of Service July 03, 2022 History & Physical Bridge Note I have examined the patient, reviewed the History & Physical and in the interval since the performance of the History & Physical I have noted the following changes of clinical significance: no changes noted I saw Dianelys in the preoperative holding area we discussed risk benefits reasonable outcomes and expectations for: Right small finger irrigation and debridement versus amputation at the tip of the finger We will likely proceed with irrigation debridement as finger does appear to be salvageable. I discussed with her she may or may not have some osteomyelitis as well. She is agreeable wishes to proceed.
[2022-07-03] MEDS ORDERED: BUPIVACAINE 0.5 % 5 MG/1 ML MPF 30ML VIAL ONE (16:57)
[2022-07-03] MEDS ORDERED: LIDOCAINE 1% LOCAL 20 ML VIAL ONE (16:58)
[2022-07-03] MEDS ORDERED: ePHEDrine sulfate 50 MG/ML AMP IV PRN (17:02)
[2022-07-03] MEDS ORDERED: ATROPINE SULFATE 0.1 MG/ML 10ML SYR IV PRN (17:02)
[2022-07-03] MEDS ORDERED: ONDANSETRON INJ 2 MG/ML 2 ML VIAL IV PRN (17:02)
[2022-07-03] MEDS ORDERED: fentaNYL citrate PF 100 MCG/2 ML VIAL IV PRN (17:02)
--- NOTE | 2022-07-03 17:05 | Anesthesiology Consultation ---
Date of Service July 03, 2022 Assessment & Plan (1) Encounter for pre-operative examination: Chart Review Chart Review: Acceptable Risk for Surgery and Patient NOT seen in Pre Admission Testing Consults Requested none History Surgery Operation Date: 07/03/22 07:00 Proposed Procedures p Incision and Drainage Right Distal 5th Finger - Lasha Fountain MD s Possible Distal Phalanx Amputation - Lasha Fountain MD Height/Weight Height: 5 ft 8 in Weight: 66.5 kg Allergies Allergy/AdvReac Type Severity Reaction Status Date / Time adhesive Allergy Unknown RASH Verified 07/01/22 19:18 codeine Allergy Unknown SICK Verified 07/01/22 19:18 latex Allergy Unknown "Rash, Verified 07/01/22 19:18 welts" pineapple Allergy Unknown . Verified 07/01/22 19:18 Medications Home Medications Medication Instructions Recorded Confirmed Last Taken amlodipine 10 mg tablet 10 mg PO DAILY 12/08/18 07/01/22 Unknown nitroglycerin 0.4 mg sublingual 0.4 mg sublingual Q5M PRN chest 12/08/18 07/01/22 Unknown tablet pain rosuvastatin 20 mg tablet 20 mg PO DAILY 02/25/19 07/01/22 Unknown lactobacillus combination no.8 3 3,000 mmu cells PO UD 03/04/19 07/01/22 Unknown billion cell capsule (Adult Probiotic) apixaban 5 mg tablet (Eliquis) 5 mg PO BID 12/08/19 07/01/22 07/01/22 08:00 cinacalcet 30 mg tablet 30 mg PO DAILY #90 tabs 06/15/20 07/01/22 Unknown cholecalciferol (vitamin D3) 50 50 mcg PO DAILY #90 caps 02/17/21 07/01/22 Unknown mcg (2,000 unit) capsule (D3-2000) magnesium glycinate 400 mg PO DAILY 02/15/22 07/01/22 Unknown hydralazine 10 mg tablet 10 mg PO BID 07/01/22 07/01/22 Unknown metoprolol succinate 25 mg 25 mg PO BID 07/01/22 07/01/22 Unknown tablet,extended release 24 hr potassium chloride 20 mEq 20 meq PO TID 07/01/22 07/01/22 Unknown tablet,extended release(part/cryst) (Klor-Con M) sulfamethoxazole 800 1 tab PO BID 07/01/22 07/01/22 07/01/22 08:00 mg-trimethoprim 160 mg tablet Active Medications Generic Name Dose Route Start Last Admin Trade Name Shanika PRN Reason Stop Dose Admin Amlodipine Besylate 10 mg 07/02/22 09:00 07/03/22 08:55 Amlodipine Besylate 5 Mg Tab PO 08/01/22 08:59 10 mg DAILY CHRISTINE Administration Apixaban 2.5 mg 07/01/22 21:00 07/02/22 09:52 Apixaban 2.5 Mg Tab PO 07/31/22 20:59 Not Given BID CHRISTINE Cinacalcet 30 mg 07/02/22 12:00 07/03/22 13:08 Cinacalcet Hcl 30 Mg Tab PO 08/01/22 08:59 Not Given DAILY@1200 CHRISTINE Hydralazine HCl 10 mg 07/01/22 21:30 07/03/22 08:55 Hydralazine 10 Mg Tab PO 07/31/22 21:29 10 mg BID CHRISTINE Administration Lactated Ringer's 1,000 mls @ 80 mls/hr 07/02/22 00:00 07/03/22 13:07 Lr IV 08/01/22 00:00 80 mls/hr .[id number] CHRISTINE Administration Vancomycin HCl 1,000 mg/ 270 mls @ 200 mls/hr 07/02/22 09:00 07/03/22 11:01 Sodium Chloride IV 07/09/22 08:59 Infused Q24H CHRISTINE Infusion Protocol Ampicillin Sodium/Sulbactam 108 mls @ 200 mls/hr 07/03/22 12:00 07/03/22 14:01 Sodium 3,000 mg/ Sodium IV 07/09/22 11:59 Infused Chloride Q6H CHRISTINE Infusion Protocol Metoprolol Succinate 25 mg 07/02/22 09:15 07/03/22 08:55 Metoprolol Succ 25mg Ext Rel Tab PO 08/01/22 09:14 25 mg BID CHRISTINE Administration Potassium Chloride 20 meq 07/01/22 21:45 07/03/22 08:54 Potassium Chloride Crtab 20 Meq Tabcr PO 07/31/22 21:44 20 meq BID CHRISTINE Administration Rosuvastatin Calcium 20 mg 07/02/22 21:00 07/02/22 20:23 Rosuvastatin Calcium 20 Mg Tab PO 08/01/22 08:59 20 mg HS CHRISTINE Administration NPO Date Last Intake of Fluids: 07/02/22 Time Last Intake of Fluids: 23:00 Date Last Intake of Solids: 07/02/22 Time Last Intake of Solids: 23:00 Past Medical History Medical History (Updated 07/03/22 @ 17:07 by Ian Longoria MD) Cellulitis of right hand Chronic kidney disease, stage 3 History of abdominal aortic aneurysm (AAA) Hypertension Multiple thyroid nodules Polycythemia Primary hyperparathyroidism Vitamin D deficiency #CAD with history of LAD stent Continue statin, rosuvastatin, Patient is not on an CATHERINE/ARB/spironolactone or antiplatelet. 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 Unclear if she has a RAMEZ or bare-m etal stent, she will have her stent card brought in from home if available. She has not had any chest pain or ischemia recently. #AAA Repair [address] Nguyen, no problems since. #CKD 3 with hx of left renal artery stenosis not amenable to angioplasty noted at [facility] [place] Baseline creatinine around 1.9, admitting creatinine 1.75 - improving. Renal impairment due to vascular disease and hypertension #A-fib Rate controlled a fib, no RVR, acute ischemia, or new dysrhythmia seen on EKG. Holding Eliquis as patient will be having a procedure in the near future. Past Family History Family History Mother Colon cancer Father Heart problem Sister Heart problem Colon cancer Past Surgical History Surgical History History of appendectomy History of heart artery stent History of parathyroid surgery Past Anesthesia History No Hx of Anesthesia Complications and No Family Hx of Anesthesia Complications Social History Smoking Status: Former smoker tobacco type: cigarettes Smoking cigarettes per day: 1 pack Do You Dip or Chew Tobacco: No Smoking End Date: 2004 Hx Alcohol Use: Yes Alcohol type: wine alcohol intake frequency: holidays/special occasions only Hx Substance Use: No Physical Exam Vital Signs Last Vital Signs Temp 36.6 C 07/03/22 16:41 Pulse 114 H 07/03/22 16:41 Resp 18 07/03/22 16:41 BP 139/89 03/21/23 16:41 Pulse Ox 96 07/03/22 16:41 O2 Del Method Room Air 07/03/22 16:41 Testing Laboratory Results 07/03/22 05:48 07/03/22 05:48 07/01/22 17:10 Gram Stain - Final Finger,Right Little Wound Culture - Preliminary Staphylococcus species Electrocardiogram Date: 07/01/22 DICTATED BY:Lasha Wu MD Test Reason : Blood Pressure : / mmHG Vent. Rate : 100 BPM Atrial Rate : 111 BPM P-R Int : 000 ms QRS Dur : 096 ms QT Int : 370 ms P-R-T Axes : 000 004 -16 degrees QTc Int : 477 ms Atrial fibrillation Incomplete right bundle branch block Nonspecific T wave abnormality Abnormal ECG When compared with ECG of 22-MAR-2005 06:30, Atrial fibrillation has replaced Sinus rhythm Vent. rate has increased BY 44 BPM Incomplete right bundle branch block is now Present Confirmed by Lasha Wu ([id number]) on 07/02/2022 10:53:45 AM
[2022-07-03] MEDS ORDERED: MIDAZOLAM HCL 1 MG/ML 2ML VIAL ONE (17:17)
[2022-07-03] MEDS ORDERED: PROPOFOL IV EMULSION 10 MG/ML 20 ML VIAL IV ONE (17:18)
--- NOTE | 2022-07-03 17:40 | Post Operative Brief Note ---
Immediate Post Op Note v1 Date of Surgery July 03, 2022 Pre & Post Diagnosis Operation Date: 07/03/22 07:00 Pre-Op Diagnosis: R 5TH DISTAL CELLULITIS, NAILBITING Post-Op Diagnosis: R 5TH DISTAL CELLULITIS, NAILBITING I identified the patient and participated in the time-out.: Yes Procedure Operation Date: 07/03/22 07:00 Actual Procedures Irrigation and debridement right small finger. Chris. Essie MD Surgeon Lasha Fountain MD Office Manager Evita Nagy PA-C Estimated Blood Loss 5 Findings Consistent with Post-Op Diagnosis Infection localized to skin elements. No evidence of deeper infection Anesthesia Type MAC Complications none
--- NOTE | 2022-07-03 18:11 | Anesthesiology Progress Note ---
Date of Service July 03, 2022 Anesthesia Post Procedure Vital Signs Vital Signs: Temp Pulse Pulse Pulse Resp BP Pulse Ox 07/03/22 17:55 114 H 20 124/92 99 07/03/22 17:47 36.3 C L 98 H 10 L 123/84 99 07/03/22 16:41 36.6 C 114 H 18 139/89 96 07/03/22 15:25 36.5 C 107 H 16 135/83 96 07/03/22 11:12 36.4 C L 110 H 16 124/80 96 07/03/22 07:28 36.7 C 105 H 16 130/82 95 07/02/22 20:21 36.8 C 108 H 20 126/79 O2 Del Method O2 Flow Rate 07/03/22 17:55 Room Air 07/03/22 17:47 Oxymask 5 07/03/22 16:41 Room Air 07/03/22 15:25 Room Air 07/03/22 11:12 Room Air 07/03/22 07:28 Room Air 07/02/22 20:21 Room Air Transfer of Care Handoff Completed per policy Notes Mental Status: alert / awake / arousable and participated in evaluation Patient Amnestic to Procedure: Yes Nausea / Vomiting: adequately controlled Pain: adequately controlled Airway Patency, RR, SpO2: stable & adequate BP & HR: stable & adequate Hydration State: stable & adequate Anesthetic Complications: no major complications apparent and Pt Satisfied with anesthetic care
[2022-07-03] MEDS: APIXABAN 5 MG TABLET PO SCH (20:14)
[2022-07-04] MEDS: LACTATED RINGER'S 1,000 ML IV SCH ×2 (00:46→18:48)
[2022-07-04] MEDS: AMPICILLIN/SULBACTAM SOD 3,000 MG in 0.9 % SODIUM CHLORIDE 100 ML IV SCH ×4 (05:26→23:39)
[2022-07-04] MEDS ORDERED: traMADol HCL 50 MG TABLET PO PRN (07:09)
--- NOTE | 2022-07-04 07:20 | Hospitalist Progress Note ---
Date of Service July 04, 2022 Assessment & Plan (1) Cellulitis of right hand: Plan: Ms. Cordova is an 87 y/o female with a PMHx of CAD, former tobacco use, polycy themia, CKD3, HTN, and Kriss's presented with distal cellulitis of the right fifth digit non-responsive to oral Bactrim found to have cellulitis growing pansensitive s. aureus on IV abx with Vanc for MRSA coverage now POD1 surgical debridement. #Right fifth distal cellulitis, dominant hand s/p debridement 07/03 No leukocytosis. Hemoglobin 16.8, baseline 16.517.3 with a history of polycythemia. Sodium, potassium normal. Procalcitonin normal. Photo of finger at time of admission attached above Imaging: Finger x-ray: Digital soft tissue swelling within the right fifth finger, no underlying bony abnormality MRI findings concerning for osteomyelitis of the 5th distal phalanx without defi nite involvement of the distal interphalangeal joint. Per ortho soft tissue involvement only - s/p debridement. Did cover for MRSA with vanc initially - MRSA nares negative, growing pansensitive staph. Will likely d/c with dicloxacillin. [] IV abx amp/sulbactam, vanc for MRSA coverage - de-escalate pending sensitivities [] wound culture grew pansensitive staph, awaiting intraoperative culture [] MRSA nares - neg, d/c vanc #CAD with history of LAD stent Continue statin, rosuvastatin, Patient is not on an CATHERINE/ARB/spironolactone or antiplatelet. 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 Unclear if she has a RAMEZ or bare- metal stent, she will have her stent card brought in from home if available. She has not had any chest pain or ischemia recently. #AAA Repair [address] Nguyen, no problems since. #CKD 3 with hx of left renal artery stenosis not amenable to angioplasty noted at [facility] [place] Baseline creatinine around 1.9, admitting creatinine 1.75 - improving. Renal impairment due to vascular disease and hypertension #A-fib Rate controlled a fib, no RVR, acute ischemia, or new dysrhythmia seen on EKG. On Eliquis. Replete electrolytes as indicated. #Hypertension BP previously well controlled. Continue amlodipine 10 mg daily. Continue hydralazine 25 mg twice daily. Continue metoprolol 25 mg succinate BID #Hyperlipidemia Continue rosuvastatin #Hyperparathyroidism s/p resection of lower thyroid gland 2005 Continue Cinacalcet, as outpatient PTH was uptrending DVT prophylaxis: Eliquis Diet: heart healthy Disposition: Medical/surgical, history of A-fib but no acute ischemia or RVR. If develops RVR transfer to telemetry CODE STATUS: Full code discussed with patient at bedside (2) CAD (coronary artery disease): (3) Polycythemia: (4) Chronic kidney disease, stage 3: (5) Hypertension: (6) Secondary hyperparathyroidism: Admission and Anticipated Discharge Date Admission Date: July 01, 2022 Supervising Physician Co-Signing Physician Notes Patient POD1 s/p I&D. Pain controlled. Awaiting cultures to determine oral antibiotic regimen. I personally examined the patient and verified all low points of history and exam, discussed case, and agree with decision making and plan documented by Dr. Paez. Subjective Patient doing well this AM. Notes that her finger has improved. No pain. No fevers or chills. Review of Systems Review of Systems: See HPI Physical Exam Physical Exam: General: A&Ox3. NAD. Cooperative. HEENT: Atraumatic, normocephalic. Vision/hearing intact. Pulm: CTAB A&P. -wheezes, -rales, -rhonchi. Symmetrical chest rise. No increased work of breathing. No respiratory distress. Cardiac: irir, -mrg. Radial pulses intact and symmetrical. Abdominal: Nontender, nondistended, soft. Ext: R fifth digit improved on exam today. Good cap refill. Active ROM with finger flexion/extension intact. MCP with mild swelling and overlying erythema. No streaking. Results & Data Results & Data Vital Signs (Past 12 Hours) Vital Signs Temp Pulse Resp BP Pulse Ox O2 Del Method 07/04/22 03:40 36.6 C 90 18 111/70 95 Room Air 07/03/22 20:58 37.0 C 89 18 114/72 96 Room Air 07/03/22 20:00 36.5 C 98 H 18 128/80 95 Room Air Laboratory Results 07/04/22 07:20 07/04/22 07:20 Resident Activity Tracking Resident Involvement: Resident Care Provided Care Provided: Adult [facility]
[2022-07-04 08:03] LABS: Hemoglobin 15.8 g/dl (12.0-16.0); Mean Corpuscular Hemoglobin 29.2 pg (25.0-34.0); Mean Corpuscular Hgb Conc 33.6 g/dL (32.0-36.0); Mean Corpuscular Volume 86.9 fL (80.0-100.0); Mean Platelet Volume 10.4 fL (9.4-12.4); Platelet Count 177 K/uL (130-400); RDW Coefficient of Variation 18.2 % (11.5-14.5); RDW Standard Deviation 56.2 fL (36.4-46.3); Red Blood Count 5.41 M/uL (4.20-5.40); White Blood Count 4.37 K/ul (4.8-10.8)
[2022-07-04 08:16] LABS: Creatinine Clr Calc Pharmacy 32.2 ml/min; Est GFR (African American) 43.7 ml/min; Est GFR (Non-African American) 37.7 ml/min; Magnesium 1.6 mg/dl (1.7-2.4); Potassium 3.8 mmol/L (3.5-5.1)
[2022-07-04] MEDS: MAGNESIUM SULFATE / D5W 1 GM/100 ML BAG IV SCH ×2 (08:43→10:31)
[2022-07-04] MEDS: hydrALAZINE 10 MG TAB PO SCH ×2 (08:47→20:51)
[2022-07-04] MEDS: METOPROLOL SUCC 25MG EXT REL TAB PO SCH ×2 (08:47→20:51)
[2022-07-04] MEDS: APIXABAN 5 MG TABLET PO SCH ×2 (08:48→20:51)
[2022-07-04] MEDS: POTASSIUM CHLORIDE CRTAB 20 MEQ TABCR PO SCH ×2 (09:58→20:50)
[2022-07-04] MEDS: VANCOMYCIN HCL 1,000 MG in SODIUM CHLORIDE 0.9% 250 ML IV SCH (09:58)
--- NOTE | 2022-07-04 13:16 | Orthopedic Progress Note ---
Date of Service July 04, 2022 Assessment & Plan (1) Infection of nail bed of finger of right hand: Plan: Pt is POD #1 s/p I&D of right distal 5th digit -Will keep dressing in place for now and dressing change to be performed tomorrow. Dressing change with Adaptic and re-wrapped in a soft dressing. -Cultures showing Staphylococcus aureus, continue antibiotics per medical service. - No plans for any additional orthopedic procedures at this time, infection was localized to the skin and there was no evidence of deeper infection or osteomyelitis. Admission and Anticipated Discharge Date Admission Date: July 01, 2022 Subjective Pt is POD #1 s/p I&D of right distal 5th digit for evidence of cellulitis. -Pt is doing well she is sitting up in bed eating lunch during exam and has no acute complaints. -States she has minimum to no pain to her right 5th digit at this time. States pain has significantly improved since surgery. -Denies CP, SOB, abdominal pain, or new onset of fevers or chills at this time Review of Systems Review of Systems: All systems reviewed & are unremarkable except as noted in Subjective Physical Exam Physical Exam: Right 5th digit with dressing in place, dressing is c/d/i. Able to flex and extend digit without issue and full ROM of remaining digits and wrist. No signs of erythema, drainage, or warmth appreciated to the right hand. No pain with movement or palpation and is NVI. Results & Data Vital Signs (Past 12 Hours) Vital Signs Temp Pulse Pulse Resp BP Pulse Ox O2 Del Method 07/04/22 12:00 36.4 C L 100 H 18 142/85 H 95 Room Air 07/04/22 07:15 36.7 C 80 84 18 135/84 94 Room Air 07/04/22 03:40 36.6 C 90 18 111/70 95 Room Air Laboratory Results Laboratory Results WBC 4.37 K/ul (4.8-10.8) L 07/04/22 07:20 RBC 5.41 M/uL (4.20-5.40) H 07/04/22 07:20 Hgb 15.8 g/dl (12.0-16.0) 07/04/22 07:20 Hct 47.0 % (37.0-47.0) 07/04/22 07:20 MCV 86.9 fL (80.0-100.0) 07/04/22 07:20 MCH 29.2 pg (25.0-34.0) 07/04/22 07:20 MCHC 33.6 g/dL (32.0-36.0) 07/04/22 07:20 RDW Std Deviation 56.2 fL (36.4-46.3) H 07/04/22 07:20 RDW Coeff of Margarita 18.2 % (11.5-14.5) H 07/04/22 07:20 Plt Count 177 K/uL (130-400) 07/04/22 07:20 MPV 10.4 fL (9.4-12.4) 07/04/22 07:20 Immature Gran % (Auto) 0.5 % 07/02/22 05:34 Neut % (Auto) 59.3 % 07/02/22 05:34 Lymph % (Auto) 23.4 % 07/02/22 05:34 Taliaferro % (Auto) 14.6 % 07/02/22 05:34 Eos % (Auto) 1.1 % 07/02/22 05:34 Baso % (Auto) 1.1 % 07/02/22 05:34 Neut # (Auto) 2.63 K/uL (1.40-6.50) 07/02/22 05:34 Lymph # (Auto) 1.04 K/uL (1.2-3.4) L 07/02/22 05:34 Taliaferro # (Auto) 0.65 K/uL (0.11-0.59) H 07/02/22 05:34 Eos # (Auto) 0.05 K/uL (0-0.50) 07/02/22 05:34 Baso # (Auto) 0.05 K/uL (0-0.2) 07/02/22 05:34 Immature Gran # (Auto) 0.02 K/uL (0.01-0.20) 07/02/22 05:34 ESR 36 mm/hr (0-30) H 07/01/22 14:50 Sodium 141 mmol/L (136-145) 07/04/22 07:20 Potassium 3.8 mmol/L (3.5-5.1) 07/04/22 07:20 Chloride 109 mmol/L (98-107) H 07/04/22 07:20 Carbon Dioxide 23 mmol/L (21-32) 07/04/22 07:20 Anion Gap 9 (3-11) 07/04/22 07:20 BUN 18 mg/dl (6-23) 07/04/22 07:20 Creatinine 1.29 mg/dl (0.6-1.2) H 07/04/22 07:20 Est Cr Clr Drug Dosing 32.2 ml/min 07/04/22 07:20 Est GFR ( Amer) 43.7 ml/min 07/04/22 07:20 Est GFR (Non-Af Amer) 37.7 ml/min 07/04/22 07:20 BUN/Creatinine Ratio 14.0 (10-20) 07/04/22 07:20 Glucose 87 mg/dl (70-99(Fasting)) 07/04/22 07:20 Lactate 1.2 mmol/L (0.4-2.0) 07/01/22 16:14 Calcium 9.0 mg/dl (8.5-10.1) 07/04/22 07:20 Magnesium 1.6 mg/dl (1.7-2.4) L 07/04/22 07:20 Total Bilirubin 1.2 mg/dl (0.2-1.0) H 07/01/22 14:50 AST 24 U/L (13-39) 07/01/22 14:50 ALT 20 U/L (7-52) 07/01/22 14:50 Alkaline Phosphatase 86 U/L (34-104) 07/01/22 14:50 C-Reactive Protein 0.52 mg/dl (0-0.5) H 07/01/22 14:50 Total Protein 8.1 gm/dl (6.0-8.3) 07/01/22 14:50 Albumin 4.5 gm/dl (3.4-5.0) 07/01/22 14:50 Globulin 3.6 gm/dl (2.5-4.0) 07/01/22 14:50 Albumin/Globulin Ratio 1.3 (0.9-2) 07/01/22 14:50 Procalcitonin < 0.05 ng/ml (0-0.5) 07/01/22 14:50 Nasal Screen MRSA (PCR) Negative (Negative) 07/04/22 Unknown Random Vancomycin 12.1 mcg/ml (10-20) 07/04/22 07:20 SARS-CoV-2, RNA, NAAT NEGATIVE (NEGATIVE) 07/01/22 17:21 Impressions Finger X-Ray 07/01/22 15:22 XR finger(s) RT min 2V CLINICAL HISTORY: right 5th fingerinfection. COMPARISON STUDY: None. FINDINGS: Soft tissue swelling within the distal right fifth finger. No destructive changes to suggest an osteomyelitis. No fracture or dislocation. Mild osteoarthritis. IMPRESSION: Distal soft tissue swelling within the right fifth finger. No underlying bony abnormality. ACT 112: Negative or not required by law. Electronically signed by: Champ Payne M.D. 07/01/2022 3:41 PM Hand MRI 07/01/22 19:47 Exam(s): MRI RIGHT HAND Without Contrast EXAM: MR Right Upper Extremity Without Intravenous Contrast, Hand CLINICAL HISTORY: Reason for exam: dominant hand cellulitis, ?osteo/DIP involvement. TECHNIQUE: Multiplanar magnetic resonance images of the right hand without intravenous contrast. COMPARISON: No relevant prior studies available. FINDINGS: LIGAMENTS: Medial collateral: Unremarkable. Lateral collateral: Unremarkable. Radial collateral: Unremarkable. Ulnar collateral: Unremarkable. TENDONS: Flexor: Unremarkable. Extensor: Unremarkable. Muscles: Unremarkable. Fluid: Unremarkable. No joint effusion. Cartilage: Unremarkable. Bones/joints: See below. Soft tissues: There is skin discontinuity over the fifth distal phalanx along the palmar aspect. This is associated with increased T2 signal and decreased T1 signal within the underlying bone (image 5 series 10). There are some questionable erosive changes involving the bone. IMPRESSION: Findings concerning for osteomyelitis of the fifth distal phalanx without definite involvement of the distal interphalangeal joint. Electronically signed by: Lyndon Florentino MD 07/02/22 00:21 AM
[2022-07-05] MEDS: AMPICILLIN/SULBACTAM SOD 3,000 MG in 0.9 % SODIUM CHLORIDE 100 ML IV SCH (05:38)
[2022-07-05] MEDS: LACTATED RINGER'S 1,000 ML IV SCH (05:40)
[2022-07-05 06:36] LABS: Hematocrit (blood only) 50.9 % (37.0-47.0); Hemoglobin 17.5 g/dl (12.0-16.0); Mean Corpuscular Hemoglobin 29.5 pg (25.0-34.0); Mean Corpuscular Hgb Conc 34.4 g/dL (32.0-36.0); Mean Corpuscular Volume 85.8 fL (80.0-100.0); Mean Platelet Volume 10.5 fL (9.4-12.4); Platelet Count 198 K/uL (130-400); RDW Coefficient of Variation 18.4 % (11.5-14.5); RDW Standard Deviation 55.3 fL (36.4-46.3); Red Blood Count 5.93 M/uL (4.20-5.40)
[2022-07-05 06:50] LABS: BUN Creatinine Ratio 13.8 (10-20); Calcium 9.5 mg/dl (8.6-10.3); Creatinine Clr Calc Pharmacy 35.8 ml/min; Est GFR (African American) 49.7 ml/min; Est GFR (Non-African American) 42.9 ml/min; Magnesium 1.9 mg/dl (1.7-2.4); Potassium 3.7 mmol/L (3.5-5.1)
[2022-07-05] MEDS ORDERED: AMOXICILLIN/CLAVULANATE 875 MG TAB PO SCH (08:00)
--- NOTE | 2022-07-05 08:18 | Discharge Summary ---
Date of Service July 05, 2022 Admission HPI Per Admitting Provider Dianelys is an 87-year-old female with past medical history of Kriss's, CAD, former tobacco use, polycythemia, CKD 3, hypertension who presented to the ER with a right fifth finger infection after she was bite in her fingernails down to the cuticle. Had redness and swelling for the last 4 days, started Bactrim 2 days ago but overnight her finger turned black. Has no pain, no fever or chills Monika is seen at the bedside. Reports symptoms started last Saturday. Thr morning was seen by PA at [facility] for R 5th digit swelling and was prescribed a topical antibiotic which she used and . Also used triple antibiotic and didn't seem to get much worse until Saturday morning saw the PA again. Was but on Bactrim DS which she has taken for 2 day hartmann dtolearing well. In the last two days the finger has gotten more purple/black instead of red and swollen. Also has some redness and swelling but no pain at the 5th MCP. No RoM pain. Severe diarrhea with Keflex, but did not have a skin or respiratory reaction to this On eliquis for Afib. Took eliquis this morning. Does not feel her A-fib, is not sure if she is in it or not. Denies any fever, chills, sweats, chest pain, chest pressure hydralazine changed to 10am/pm toprol 50 and takes 25mg BID succinate rosuvatatin 20 cincalcet 30mg Medical History: Reviewed Medications: Reviewed Surgical History: Reviewed Family history: Reviewed Allergies: Reviewed Social History: No current tobacco/etoh. Code Status: Full Code Admission Exam Per Admitting Provider General: A&Ox3. NAD. Cooperative. HEENT: Atraumatic, normocephalic. Vision/hearing intact. Pulm: CTAB A&P. -wheezes, -rales, -rhonchi. Symmetrical chest rise. No increased work of breathing. No respiratory distress. Cardiac: irir, -mrg. Radial pulses intact and symmetrical. Abdominal: Nontender, nondistended, soft. BS present. Ext: R fifth digit with photo below. Passive RoM and active RoM with finger flexion/extension intact with 5/5 strength. Sensation absent over necrotic region. Purulent drainage present. Sensatino to soft touch returns at the PIP. Cap refill brisk just proximal to the dip. MCP with mild swelling and overlying erythema. No streaking. Principal Diagnosis right fifth digiti cellulitis Discharge Exam General: A&Ox3. NAD. Cooperative. HEENT: Atraumatic, normocephalic. Vision/hearing intact. Pulm: CTAB A&P. -wheezes, -rales, -rhonchi. Symmetrical chest rise. No increased work of breathing. No respiratory distress. Cardiac: irir, -mrg. Radial pulses intact and symmetrical. Abdominal: Nontender, nondistended, soft. Ext: R fifth digit s/p debridement, no signs of necrotic tissue, no active bleeding, no signs of purulent discharge/erythema/streaking. Good cap refill. Active ROM with finger flexion/extension intact. Discharge Data Allergies Allergy/AdvReac Type Severity Reaction Status Date / Time adhesive Allergy Unknown RASH Verified 07/01/22 19:18 codeine Allergy Unknown SICK Verified 07/01/22 19:18 latex Allergy Unknown "Rash, Verified 07/01/22 19:18 welts" pineapple Allergy Unknown . Verified 07/01/22 19:18 Consultations 07/01/22 17:28 ED Decision to Admit Stat 07/01/22 18:30 Consult Orthopedic Surgery Routine Procedures Performed Operation Date: 07/03/22 07:00 Actual Procedures p Incision and Drainage Right Distal 5th Finger(Right) - Lasha Fountain MD s Possible Distal Phalanx Amputation(Right) - Lasha Fountain MD Ordered Studies Finger X-Ray 07/01/22 15:22 XR finger(s) RT min 2V CLINICAL HISTORY: right 5th fingerinfection. COMPARISON STUDY: None. FINDINGS: Soft tissue swelling within the distal right fifth finger. No destructive changes to suggest an osteomyelitis. No fracture or dislocation. Mild osteoarthritis. IMPRESSION: Distal soft tissue swelling within the right fifth finger. No underlying bony abnormality. Hand MRI 07/01/22 19:47 Exam(s): MRI RIGHT HAND Without Contrast EXAM: MR Right Upper Extremity Without Intravenous Contrast, Hand CLINICAL HISTORY: Reason for exam: dominant hand cellulitis, ?osteo/DIP involvement. TECHNIQUE: Multiplanar magnetic resonance images of the right hand without intravenous contrast. COMPARISON: No relevant prior studies available. FINDINGS: LIGAMENTS: Medial collateral: Unremarkable. Lateral collateral: Unremarkable. Radial collateral: Unremarkable. Ulnar collateral: Unremarkable. TENDONS: Flexor: Unremarkable. Extensor: Unremarkable. Muscles: Unremarkable. Fluid: Unremarkable. No joint effusion. Cartilage: Unremarkable. Bones/joints: See below. Soft tissues: There is skin discontinuity over the fifth distal phalanx along the palmar aspect. This is associated with increased T2 signal and decreased T1 signal within the underlying bone (image 5 series 10). There are some questionable erosive changes involving the bone. IMPRESSION: Findings concerning for osteomyelitis of the fifth distal phalanx without definite involvement of the distal interphalangeal joint. 07/05/22 05:31 07/05/22 05:31 Hospital Course (1) Cellulitis of right hand: Ms. Cordova is an 87 y/o female with a PMHx of CAD, former tobacco use, polycythemia, CKD3, HTN, and Kriss's presented with distal cellulitis of the right fifth digit non-responsive to oral Bactrim found to have cellulitis growing pansensitive s. aureus on IV abx with Vanc for MRSA coverage now POD2 surgical debridement and transition to PO Augmentin stable for discharge. #Right fifth distal cellulitis, dominant hand s/p debridement 07/03 No leukocytosis. Hemoglobin 16.8, baseline 16.517.3 with a history of polycythemia. Sodium, potassium normal. Procalcitonin normal. Photo of finger at time of admission attached above Imaging: Finger x-ray: Digital soft tissue swelling within the right fifth finger, no underlying bony abnormality MRI findings concerning for osteomyelitis of the 5th distal phalanx without definite involvement of the distal interphalangeal joint. Per ortho soft tissue involvement only - s/p debridement. Did cover for MRSA with vanc initially - MRSA nares negative, growing pansensitive staph. Will d/c with Augmentin for 14 days total of abx. #CAD with history of LAD stent Continue statin, rosuvastatin, Patient is not on an CATHERINE/ARB/spironolactone or antiplatelet. 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 Unclear if she has a RAMEZ or bare- metal stent, she will have her stent card brought in from home if available. She has not had any chest pain or ischemia recently. #AAA Repair [address] Nguyen, no problems since. #CKD 3 with hx of left renal artery stenosis not amenable to angioplasty noted [place] [facility] Baseline creatinine around 1.9, admitting creatinine 1.75 - improving. Renal impairment due to vascular disease and hypertension #A-fib Rate controlled a fib, no RVR, acute ischemia, or new dysrhythmia seen on EKG. On Eliquis. Replete electrolytes as indicated. #Hypertension BP previously well controlled. Continue amlodipine 10 mg daily. Continue hydralazine 25 mg twice daily. Continue metoprolol 25 mg succinate BID #Hyperlipidemia Continue rosuvastatin #Hyperparathyroidism s/p resection of lower thyroid gland 2005 Continue Cinacalcet, as outpatient PTH was uptrending DVT prophylaxis: Eliquis Diet: heart healthy Disposition: Medical/surgical, history of A-fib but no acute ischemia or RVR. If develops RVR transfer to telemetry CODE STATUS: Full code discussed with patient at bedside (2) CAD (coronary artery disease): (3) Polycythemia: (4) Chronic kidney disease, stage 3: (5) Hypertension: (6) Secondary hyperparathyroidism: Total Time Total Time Spent Total Time Spent (In Minutes): 34 minutes Total Time Includes: Examination of the Patient, Discharge Planning and Other Discharge Plan Discharge Items Patient Disposition: Transfer Correction Fac Reason For Visit: R 5TH DISTAL CELLULITIS, NAILBITING Discharge Diagnosis: right 5th distal cellulitis Activity: Per Instructions section Non-emergency contact: Primary Care Provider and Surgeon Call non-emergency contact if: your symptoms worsen and your temperature is above 101.5 Follow-up/Referrals: Juan Mcqueen [Primary Care Provider] - Lasha Fountain MD [Physician] - (f/u with Dr. Fountain or his PA Evita Nagy in 1 week for post-op check up ) Diet: Heart Healthy Addtl Attending Provider Instructions: Ms. Cordova is an 87 y/o female with a PMHx of CAD, former tobacco use, polycythemia, CKD3, HTN, and Kriss's presented with distal cellulitis of the right fifth digit non-responsive to oral Bactrim found to have cellulitis grow ing pansensitive s. aureus treated inititally with IV abx including MRSA coverage with vanc now POD2 surgical debridgement and transition to oral abx. #Right fifth distal cellulitis, dominant hand s/p debridement 07/03 No leukocytosis. Hemoglobin 16.8, baseline 16.517.3 with a history of polycyth emia. Sodium, potassium normal. Procalcitonin normal. Photo of finger at time of admission attached above Imaging: Finger x-ray: Digital soft tissue swelling within the right fifth finger, no underlying bony abnormality MRI findings concerning for osteomyelitis of the 5th distal phalanx without def inite involvement of the distal interphalangeal joint. Per ortho soft tissue involvement only - s/p debridement. Did cover for MRSA with vanc initially - MRSA nares negative, growing pansensitive staph. Discharge to [facility] with Augmentin for 14 days total of abx. #CAD with history of LAD stent Continue statin, rosuvastatin, Patient is not on an CATHERINE/ARB/spironolactone or antiplatelet. 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 Unclear if she has a RAMEZ or bare- metal stent, she will have her stent card brought in from home if available. She has not had any chest pain or ischemia recently. #AAA Repair [address] Nguyen, no problems since. #CKD 3 with hx of left renal artery stenosis not amenable to angioplasty noted [place] [facility] Baseline creatinine around 1.9, admitting creatinine 1.75 - improving. Renal impairment due to vascular disease and hypertension #A-fib Rate controlled a fib, no RVR, acute ischemia, or new dysrhythmia seen on EKG. On Eliquis. Replete electrolytes as indicated. #Hypertension BP previously well controlled. Continue amlodipine 10 mg daily. Continue hydralazine 25 mg twice daily. Continue metoprolol 25 mg succinate BID #Hyperlipidemia Continue rosuvastatin #Hyperparathyroidism s/p resection of lower thyroid gland 2005 Continue Cinacalcet, as outpatient PTH was uptrending DVT prophylaxis: Eliquis Diet: heart healthy Disposition:[facility] CODE STATUS: Full code discussed with patient at bedside Addtl Creative Manager Provider Instructions: Daily dressing changes to finger to be done by [facility] nursing staff or the patient. Can use adaptic , 2x2 gauze if needed, and a kerlix wrap. Pt to maintain dressing at all times unless changing dressing or bathing. Do not soak the wound. You may clean the wound with a mild soap. Pat dry and replace dressing. Follow up with Dr Fountain in 7-10 days for a wound recheck. Pending Studies at Discharge: No Stand-Alone Forms: My [facility] Skilled Items Patient informed of condition?: Yes DNR: No Discharge Level of Care: Skilled Communicable Disease: No Discharge Prognosis: Stable Lines: None Urinary Catheter: No Medications and DC Order Prescriptions: New amoxicillin-pot clavulanate 875-125 mg Tablet 1 tab PO BIDM 11 Days Qty: 22 0RF Continued nitroglycerin 0.4 mg tablet, sublingual 0.4 mg SL Q5M PRN (Reason: chest pain) amlodipine 10 mg tablet 10 mg PO DAILY Adult Probiotic 3 billion cell capsule 3,000 mmu cells PO UD rosuvastatin 20 mg tablet 20 mg PO DAILY cholecalciferol (vitamin D3) [D3-2000] 50 mcg (2,000 unit) capsule 50 mcg PO DAILY Qty: 90 2RF Eliquis 5 mg tablet 5 mg PO BID cinacalcet 30 mg tablet 30 mg PO DAILY Qty: 90 3RF magnesium glycinate 100 mg magnesium capsule 400 mg PO DAILY hydralazine 10 mg tablet 10 mg PO BID potassium chloride [Klor-Con M20] 20 mEq tablet,ER particles/crystals 20 meq PO TID metoprolol succinate 25 mg tablet extended release 24 hr 25 mg PO BID Discontinued sulfamethoxazole-trimethoprim 800-160 mg tablet 1 tab PO BID Discharge Orders: Discharge Order (Routine); Ordered 07/05/22 Ordered By: Gay Ballard/Other Patient Handouts: ED Paronychia of the Finger or Toe Admission Data Admit Date/Time: 07/01/22 18:29 Attending Provider: Sabrina Dominguez Admit Provider: Zaid Curiel Primary Care Provider: Juan Mcqueen Other Providers: Zaid Curiel ; Juan M Ibarra Other Interventions: Discharge Summary Assessment (RN) Last Done: 07/05/22 11:33 Supervising Physician Co-Signing Physician Notes Ms. Cordova is POD2 s/p I&D right distal fifth digit. Initially there was concerns on MRI for osteomyelitis however per surgeon infection confined to soft tissue. Her pain has been controlled, she has been transitioned to Augmentin therapy to complete 14 days of antibiotic therapy, encouraged probiotics and good hydration while taking medication. Patient advised to follow-up with PA at orthopedics in 1 to 2 weeks from discharge. Discussed concerning signs that woul d indicate infection and meantime. Patient advised to follow-up with PCP. She is grateful to return to [facility]. I personally examined the patient and verified all lwo points of history and exam, discussed case, and agree with decision making and plan documented by Dr. Paez. Resident Activity Tracking Resident Involvement: Resident Care Provided Care Provided: Adult [facility]
--- NOTE | 2022-07-05 08:26 | Orthopedic Progress Note ---
Date of Service July 05, 2022 Assessment & Plan (1) Infection of nail bed of finger of right hand: Plan: Pt is POD #2 s/p I&D of right distal 5th digit. -Pt is doing well, dressing was removed and site was examined and re-dressed. -Continue oral abx per medical service -Pain regime as written -No further orthopedic intervention warranted at this time, will s/o. Please re- consult with any questions or concerns. Plan I saw Dianelys and examined her today. Her examination shows resolution of infection. Finger is viable. There is no evidence of deeper infection. My recommendation is for her to be discharged to home with oral antibiotics. I do not anticipate further surgical treatment. Please have her follow-up with CARLITA Nagy approximately 1 to 2 weeks from discharge Orthopedics will sign off. Please call us if you have any questions. Admission and Anticipated Discharge Date Admission Date: July 01, 2022 Subjective Pt is POD #2 s/p I&D of right distal 5th digit for evidence of cellulitis. -Pt is doing well she is sitting up in bed and has no acute complaints. -States pain well controlled at this time -Denies CP, SOB, abdominal pain, or new onset of fevers or chills at this time Review of Systems Review of Systems: All systems reviewed & are unremarkable except as noted in Subjective Physical Exam Physical Exam: Right 5th digit with dressing in place, dressing is c/d/i. Dressing removed and changed at bedside. Pt is able to flex and extend digit without issue and has full ROM of remaining digits and wrist. Surgical site with healthy appearing tissue, no necrosis, and no active drainage. No pain with movement and is NVI. Results & Data Vital Signs (Past 12 Hours) Vital Signs Temp Pulse Resp BP Pulse Ox O2 Del Method 07/05/22 07:30 36.6 C 97 H 16 125/90 96 Room Air 07/04/22 20:50 Room Air 07/04/22 22:00 36.8 C 102 H 18 121/82 96 Room Air Laboratory Results Laboratory Results WBC 6.10 K/ul (4.8-10.8) 07/05/22 05:31 RBC 5.93 M/uL (4.20-5.40) H 07/05/22 05:31 Hgb 17.5 g/dl (12.0-16.0) H 07/05/22 05:31 Hct 50.9 % (37.0-47.0) H 07/05/22 05:31 MCV 85.8 fL (80.0-100.0) 07/05/22 05:31 MCH 29.5 pg (25.0-34.0) 07/05/22 05:31 MCHC 34.4 g/dL (32.0-36.0) 07/05/22 05:31 RDW Std Deviation 55.3 fL (36.4-46.3) H 07/05/22 05:31 RDW Coeff of Margarita 18.4 % (11.5-14.5) H 07/05/22 05:31 Plt Count 198 K/uL (130-400) 07/05/22 05:31 MPV 10.5 fL (9.4-12.4) 07/05/22 05:31 Immature Gran % (Auto) 0.5 % 07/02/22 05:34 Neut % (Auto) 59.3 % 07/02/22 05:34 Lymph % (Auto) 23.4 % 07/02/22 05:34 Sauk % (Auto) 14.6 % 07/02/22 05:34 Eos % (Auto) 1.1 % 07/02/22 05:34 Baso % (Auto) 1.1 % 07/02/22 05:34 Neut # (Auto) 2.63 K/uL (1.40-6.50) 07/02/22 05:34 Lymph # (Auto) 1.04 K/uL (1.2-3.4) L 07/02/22 05:34 Sauk # (Auto) 0.65 K/uL (0.11-0.59) H 07/02/22 05:34 Eos # (Auto) 0.05 K/uL (0-0.50) 07/02/22 05:34 Baso # (Auto) 0.05 K/uL (0-0.2) 07/02/22 05:34 Immature Gran # (Auto) 0.02 K/uL (0.01-0.20) 07/02/22 05:34 ESR 36 mm/hr (0-30) H 07/01/22 14:50 Sodium 141 mmol/L (136-145) 07/05/22 05:31 Potassium 3.7 mmol/L (3.5-5.1) 07/05/22 05:31 Chloride 108 mmol/L (98-107) H 07/05/22 05:31 Carbon Dioxide 24 mmol/L (21-32) 07/05/22 05:31 Anion Gap 9 (3-11) 07/05/22 05:31 BUN 16 mg/dl (6-23) 07/05/22 05:31 Creatinine 1.16 mg/dl (0.6-1.2) 07/05/22 05:31 Est Cr Clr Drug Dosing 35.8 ml/min 07/05/22 05:31 Est GFR ( Amer) 49.7 ml/min 07/05/22 05:31 Est GFR (Non-Af Amer) 42.9 ml/min 07/05/22 05:31 BUN/Creatinine Ratio 13.8 (10-20) 07/05/22 05:31 Glucose 86 mg/dl (70-99(Fasting)) 07/05/22 05:31 Lactate 1.2 mmol/L (0.4-2.0) 07/01/22 16:14 Calcium 9.5 mg/dl (8.6-10.3) 07/05/22 05:31 Magnesium 1.9 mg/dl (1.7-2.4) 07/05/22 05:31 Total Bilirubin 1.2 mg/dl (0.2-1.0) H 07/01/22 14:50 AST 24 U/L (13-39) 07/01/22 14:50 ALT 20 U/L (7-52) 07/01/22 14:50 Alkaline Phosphatase 86 U/L (34-104) 07/01/22 14:50 C-Reactive Protein 0.52 mg/dl (0-0.5) H 07/01/22 14:50 Total Protein 8.1 gm/dl (6.0-8.3) 07/01/22 14:50 Albumin 4.5 gm/dl (3.4-5.0) 07/01/22 14:50 Globulin 3.6 gm/dl (2.5-4.0) 07/01/22 14:50 Albumin/Globulin Ratio 1.3 (0.9-2) 07/01/22 14:50 Procalcitonin < 0.05 ng/ml (0-0.5) 07/01/22 14:50 Nasal Screen MRSA (PCR) Negative (Negative) 07/04/22 Unknown Random Vancomycin 12.1 mcg/ml (10-20) 07/04/22 07:20 SARS-CoV-2, RNA, NAAT NEGATIVE (NEGATIVE) 07/01/22 17:21 Impressions Finger X-Ray 07/01/22 15:22 XR finger(s) RT min 2V CLINICAL HISTORY: right 5th fingerinfection. COMPARISON STUDY: None. FINDINGS: Soft tissue swelling within the distal right fifth finger. No destructive changes to suggest an osteomyelitis. No fracture or dislocation. Mild osteoarthritis. IMPRESSION: Distal soft tissue swelling within the right fifth finger. No underlying bony abnormality. ACT 112: Negative or not required by law. Electronically signed by: Champ Payne M.D. 07/01/2022 3:41 PM Hand MRI 07/01/22 19:47 Exam(s): MRI RIGHT HAND Without Contrast EXAM: MR Right Upper Extremity Without Intravenous Contrast, Hand CLINICAL HISTORY: Reason for exam: dominant hand cellulitis, ?osteo/DIP involvement. TECHNIQUE: Multiplanar magnetic resonance images of the right hand without intravenous contrast. COMPARISON: No relevant prior studies available. FINDINGS: LIGAMENTS: Medial collateral: Unremarkable. Lateral collateral: Unremarkable. Radial collateral: Unremarkable. Ulnar collateral: Unremarkable. TENDONS: Flexor: Unremarkable. Extensor: Unremarkable. Muscles: Unremarkable. Fluid: Unremarkable. No joint effusion. Cartilage: Unremarkable. Bones/joints: See below. Soft tissues: There is skin discontinuity over the fifth distal phalanx along the palmar aspect. This is associated with increased T2 signal and decreased T1 signal within the underlying bone (image 5 series 10). There are some questionable erosive changes involving the bone. IMPRESSION: Findings concerning for osteomyelitis of the fifth distal phalanx without definite involvement of the distal interphalangeal joint. Electronically signed by: Lyndon Florentino MD 07/02/22 00:21 AM
[2022-07-05] MEDS: POTASSIUM CHLORIDE CRTAB 20 MEQ TABCR PO SCH (09:19)
[2022-07-05] MEDS: hydrALAZINE 10 MG TAB PO SCH (09:20)
[2022-07-05] MEDS: APIXABAN 5 MG TABLET PO SCH (09:20)
[2022-07-05] MEDS: METOPROLOL SUCC 25MG EXT REL TAB PO SCH (09:20)
--- NOTE | 2022-07-12 22:42 | Operative Report (OR) ---
DATE OF SURGERY: 07/03/2022. PREOPERATIVE DIAGNOSIS: Right fifth digit infection. POSTOPERATIVE DIAGNOSIS: Right fifth digit soft tissue infection. PROCEDURE: Right small finger irrigation and debridement of skin and subcutaneous tissue. INDICATIONS: This is a female with progressive pain and swelling in the right fifth digit. She presents with history of biting her nails and presents with infection at the tip of the finger. She presents with possible dysvascularity, possible osteomyelitis. She presents for I and D after failed conservative treatment. The risks and benefits have been discussed including, but not limited to, risk of infection, nerve injury, stiffness, loss of motion, failure to improve, etc. Reasonable outcomes and options of treatment were discussed. An explanation of appropriate alternatives to the procedure that may be advantageous were discussed and their risks and benefits, as well as the risks and benefits of not proceeding with treatment. I offered to answer any additional inquiries concerning the treatment involved. All the patients questions were answered. The patient is agreeable, understanding of the treatment plan and alternatives, and wishes to proceed with the treatment plan. CREDIT COLLECTIONS ANALYST: Radha Nagy PA-C who was necessary for prepping, draping, retraction, exposure, and closure. FINDINGS: Superficial skin infection seen with desquamation of the skin. No evidence of deeper infection. ANESTHESIA: Digital block with sedation. DESCRIPTION OF OPERATION: I gave the patient digital block with 5 mL of a mixture of lidocaine and Marcaine. I applied a finger tourniquet. I inspected the area. The nail was unstable and I removed the nail. The patient had evidence of infection at the tip of the finger, which involved the skin and soft tissue elements. I performed debridement of area of approximately 2 x 1 cm of the skin and underlying tissue. I did not detect any infection in the region of the bone or deeper infection. The infection was from the superficial layers extending to deep layers rather than extending from the bone superficially. The area was copiously irrigated. I took cultures of a small amount of purulent fluid. The area was copiously irrigated with 1 liter of normal saline. Debridement was completed with scissor, scalpel and curette of an area 2 x 1 cm. Once that was complete, the area looked very clean. The patient was placed in a soft dressing and sent to PACU in a stable condition. Postoperative plan will be to monitor culture results. No further surgical indication at this point in time. Job ID: [id number] CARLO
--- NOTE | 2022-07-17 07:08 | Coding Query ---
DEBRIDEMENT DOCUMENTATION To promote full compliance with coding requirements relating to patient care, physician participation is requested in all cases of warehouse person uncertainty. Please assist us with the question(s) below: Please place an X in the parenthesis (x). If other, please document the finding: Type of Debridement: (x) Excisional Debridement- Cutting away necrotic, devitalized tissue or slough to the level of viable tissue using a sharp instrument (i.e. scalpel, scissors, etc.) ( ) Non Excisional Debridement- The removal of necrotic, devitalized tissue or slough by means of scraping, mechanical brushing, flushing, or washing (i.e. irrigation,whirlpool);minor removal of loose fragments. ( ) Other (please specify): Thank you Leela MATOS
--- NOTE | 2022-07-18 07:35 | Coding Query ---
CODING QUERY To promote full compliance with coding requirements relating to patient care, provider participation is requested in all cases of strapper and buffer uncertainty. Please assist us with the question(s) below: Coding Question(s): There is documentation of, "Cellulitis of right hand", on the H&P as well as the ER and several Progress Notes, as well as documentation, as on the H&P of, "Right fifth distal cellulitis, dominant hand", and, "MRI pending, patient does have additional erythema at the MCP", with documentation on the ER of, "distal tip of right 5th finger necrotic with abscess and surrounding erythema and purulent drainage, and, "Right 5th finger concerning for cellulitis with abscess and evidence of necrotic tissue. Erythema and edema extends to MCP joint". The right finger cellulitis is documented well in the record but it is not clear if the cellulitis was only of the right fifth finger or if there was cellulitis of both the finger and the right hand, or if this was only cellulitis of the right fifth finger. Please specify below, in your clinical opinion: ( X) Cellulitis was of both the right fifth finger and the right hand ( ) Cellulitis was of the right fifth finger only ( ) Other: Please Specify Physician's Response(s): Thank you Leela Ramon Principal Diagnosis: "that condition established after study, to be chiefly responsible for occasioning the admission of the patient to the hospital for care." Co-Existing Principal Diagnosis: "when two or more diagnoses equally meet the criteria for principal diagnosis as determined by the circumstances of admission, diagnostic work up, and/or therapy provided, and the Alphabetic Index, Tabular List, or another coding guideline does not provide sequencing direction, any one of the diagnoses may be sequenced first." "When the physician has documented what appears to be a current diagnosis in the body of the record, but has not included the diagnosis in the final diagnostic statement, the physician should be asked whether the diagnosis should be added." ([facility] 2 QTR90. p3-4) CARLO
--- NOTE | 2022-07-18 07:41 | Coding Query ---
CODING QUERY To promote full compliance with coding requirements relating to patient care, provider participation is requested in all cases of statistics intern uncertainty. Please assist us with the question(s) below: Coding Question(s): There is documentation, as on H&P, of A-fib and, "On eliquis for Afib. Took eliquis this morning. Does not feel her A-fib, is not sure if she is in it or not. Denies any fever, chills, sweats, chest pain, chest pressure hydralazine changed to 10am/pm toprol 50 and takes 25mg BID succinate". Please specify below, regarding Afib. ( X) Atrial Fibrillation, Specified Type. Please Specify__ICD10 I48.0 paroxysmal afib ( ) Atrial Fibrillation, Unspecified Type ( ) Other: Please Specify Physician's Response(s): Thank you Leela Ramon Principal Diagnosis: "that condition established after study, to be chiefly responsible for occasioning the admission of the patient to the hospital for care." Co-Existing Principal Diagnosis: "when two or more diagnoses equally meet the criteria for principal diagnosis as determined by the circumstances of admission, diagnostic work up, and/or therapy provided, and the Alphabetic Index, Tabular List, or another coding guideline does not provide sequencing direction, any one of the diagnoses may be sequenced first." "When the physician has documented what appears to be a current diagnosis in the body of the record, but has not included the diagnosis in the final diagnostic statement, the physician should be asked whether the diagnosis should be added." ([facility] 2 QTR90. p3-4) CARLO
== END 2022-07-05 13:13 | DRG 580 ==
LOC: ED 14:28 → SUATTDRO 18:29 → 3W 18:29

== ENCOUNTER 2025-01-31 18:27 | Inpatient (IN) ==
--- NOTE | 2025-01-31 19:37 | Emergency Department Note ---
Impression & Plan Fall, Closed fracture of proximal end of right femur, Acute pain of right hip ED Provider Note HISTORY OF PRESENT ILLNESS: Patient is an 89-year-old female presenting with right hip pain after a fall. Patient reports she was walking with her walker into the dining room at [facility] when she tripped over her walker and fell, landing on her right hip. She reports immediate pain and deformity to the right hip. She denies striking her head or loss of consciousness. She is on Eliquis for history of A-fib. She is crying in pain and stating that her hip is very sore. She is seated upright on examination with her leg cradled towards her chest. She was given 50 mcg of IV fentanyl prior to arrival. ROS: as above PHYSICAL EXAM: Constitutional: Patient appears in no acute distress. HENT: Head: Normocephalic and atraumatic. Eyes: EOMI, PERRL Mouth/Throat: Mucous membranes moist. Neck: Trachea midline. Neck supple. No midline cervical spine tenderness to palpation. Cardiovascular: Irregularly irregular rhythm. No murmurs, rubs or gallops. Intact distal pulses. Pulmonary/Chest: No respiratory distress. Breath sounds clear and equal bilaterally. No wheezes or rales. Abdominal: Abdomen soft, no tenderness, rebound or guarding. Musculoskeletal: - RLE: Patient is holding her right leg flexed at the knee and pulled towards her chest while seated upright in the bed. Complaining of diffuse tenderness to palpation at the proximal femur where it connects at the pelvis. Unable to internally or externally rotate the femur without significant amounts of pain. Patient is able to flex and extend at the knee. Able to dorsiflex and plantarflex at the ankle. Intact DP and PT pulses. Able to wiggle toes. Sensation intact to light touch at the nerve distributions of the leg. Skin: Warm and dry. No rash, erythema, pallor or cyanosis Psychiatric: Appropriate mood and affect for situation. Neurological: Alert and keenly responsive. CN II-XII grossly intact MDM: - Vitals signs showed hypertension - History obtained via patient. History as above. - Chronic conditions affecting care: CAD; secondary hyperparathyroidism; CKD stage 3 - Differential diagnoses include, but are not limited to: Femur fracture; pelvic fracture; femur dislocation; contusion - Order placed for continuous cardiac monitoring. At this time, monitor showed rate of 77 bpm with irregular rhythm, per my interpretation. - External medical records reviewed. Nephrology office note dated 08/02/2024 was reviewed. Patient follows in their clinic for her CKD stage III. Baseline creatinine is 1.9. - Patient initially given 0.5 mg IV dilaudid on arrival but was still screaming in pain and was given additional 0.5 mg IV Dilaudid to help with pain control to allow for x-ray facilitation. - Xray right femur and pelvis images showed proximal femur fracture, per my interpretation. Radiology notes displaced transcervical or basicervical fracture of the right femur - CXR image reviewed by myself negative for pneumothorax, per my interpretation. - EKG image interpreted by myself showed normal atrial fibrillation. Rate 82 bpm. QT 416. No acute ischemic changes. - Laboratory workup interpreted by myself showed normal WBC; stable electrolytes; CKD; normal CK; normal AST/ALT; normal troponin - Discussed case with orthopedist SHANNEN, Juan M Murdock, at 20:25. He recommended admission to medicine and states that orthopedics could potentially do surgery tomorrow if patient is cleared by medicine service. - Discussion was had with rn case manager hospice about patient's case and need for admission - Hospitalist consulted for admission - Patient admitted to [facility] service for further evaluation and management. ASSESSMENT AND PLAN: Diagnosis: Fall; right proximal femur fracture; acute right hip pain Plan: admit Past Med/Surg History Problem List (Updated 01/31/25 @ 21:48 by Jennifer Landa MD) Acute pain of right hip (Acute) Closed fracture of proximal end of right femur (Acute) Fall (Acute) Primary hyperparathyroidism Chronic kidney disease, stage 3 Kriss's thyroiditis History of parathyroid surgery Osteoporosis (Chronic) Hypercalcemia (Chronic) CAD (coronary artery disease) (Chronic) Former smoker (Chronic) History of basal cell carcinoma (Chronic) Secondary hyperparathyroidism (Chronic) Vitamin D deficiency (Chronic) Medical History Cellulitis of right hand Multiple thyroid nodules Polycythemia History of abdominal aortic aneurysm (AAA) Hypertension Surgical History History of heart artery stent History of appendectomy Family History Mother Colon cancer Father Heart problem Sister Heart problem Colon cancer Social History Smoking Status: Never smoker Cigarettes Per Day: 1 pack; Do You Dip or Chew Tobacco: No; Hx Alcohol Use: Yes Alcohol type: wine Hx Substance Use: No Preferred Language: Ugandan Communication Ability: Effective Medical Sonographer Required: No Beliefs That Will Affect Care: None marital status: / Current Living Situation: Skilled Nursing Current Living Situation Comment: Lives at [facility] Feels Safe at Home: Yes Assistive Devices: Walker Allergies Allergies Allergy/AdvReac Type Severity Reaction Status Date / Time adhesive Allergy Unknown RASH Verified 08/07/24 13:34 atorvastatin Allergy Unknown . Unverified 01/31/25 21:40 cephalexin [From Keflex] Allergy Unknown . Unverified 01/31/25 21:40 codeine Allergy Unknown SICK Verified 01/31/25 21:39 latex Allergy Unknown "Rash, Verified 01/31/25 21:39 welts" pineapple Allergy Unknown . Verified 01/31/25 21:39 Home Meds Home Medications Medication Instructions Recorded Confirmed nitroglycerin 0.4 mg sublingual 0.4 mg sublingual Q5M PRN chest 12/08/18 01/31/25 tablet pain magnesium glycinate 200 mg PO BID 12/27/23 01/31/25 potassium chloride 20 mEq 20 meq PO TID 12/27/23 01/31/25 tablet,extended release(part/cryst) (Klor-Con M) apixaban 2.5 mg tablet (Eliquis) 2.5 mg PO BID 06/24/24 01/31/25 metoprolol succinate 25 mg 50 mg PO QAM 06/24/24 01/31/25 tablet,extended release 24 hr aspirin 81 mg tablet,delayed 81 mg PO DAILY 08/07/24 01/31/25 release famotidine 20 mg tablet 20 mg PO BID 08/07/24 01/31/25 rosuvastatin 20 mg tablet 20 mg PO DAILY 08/07/24 01/31/25 acetaminophen 500 mg tablet 500 mg PO Q6H PRN Pain 01/31/25 01/31/25 (Tylenol Extra Strength) albuterol sulfate 90 mcg/actuation 2 puff inhalation Q4H PRN 10/19/25 10/19/25 aerosol inhaler COUGH/CHEST TIGHTNESS, SHORTNESS OF BREATH amlodipine 5 mg tablet 5 mg PO HS HYPERTENSION 01/31/25 01/31/25 cyanocobalamin (vitamin B-12) 1,000 mcg PO QAM 01/31/25 01/31/25 1,000 mcg tablet lidocaine 4 % topical patch 1 patch topical DAILY 01/31/25 01/31/25 metoprolol succinate 25 mg 25 mg PO HS 01/31/25 01/31/25 tablet,extended release 24 hr sodium chloride 0.65 % nasal spray 2 spray intranasal TID PRN DRY 01/31/25 01/31/25 aerosol (Saline Nasal) NOSE/CONGESTION Previous Rx's Medication Instructions Recorded cinacalcet 30 mg tablet 30 mg PO DAILY #90 tabs 06/15/20 cholecalciferol (vitamin D3) 50 50 mcg PO DAILY #90 caps 02/17/21 mcg (2,000 unit) capsule (D3-2000) Results & Data (ED) Vital Signs Vital Signs - 24 hr 01/31/25 18:17 01/31/25 18:27 01/31/25 18:35 Temperature 36.6 C Temperature Source Oral Pulse Rate 71 Pulse Rate [Apical] 79 Pulse Rhythm Irregular Pulse Rhythm [Apical] Regular Pulse Strength Normal Respiratory Rate 22 20 Respiratory Effort / Characteristics Non-Labored Spontaneous Non-Labored Spontaneous Respiratory Depth Normal Normal Respiratory Pattern Regular Regular Blood Pressure 166/104 H Blood Pressure [Left Arm] 163/88 H Blood Pressure Mean 124 Blood Pressure Mean [Left Arm] 113 Pulse Oximetry 93 93 93 Oxygen Delivery Method Room Air Room Air Room Air Oxygen Flow Rate Sepsis Recent Fever Within 48 Hours No Sepsis New/Unexplained Change in Mental Status No Sepsis Action Taken by Nursing No Action Required 01/31/25 18:45 01/31/25 20:28 01/31/25 20:31 Temperature Temperature Source Pulse Rate 77 Pulse Rate [Apical] Pulse Rhythm Pulse Rhythm [Apical] Pulse Strength Respiratory Rate 22 Respiratory Effort / Characteristics Respiratory Depth Respiratory Pattern Blood Pressure Blood Pressure [Left Arm] Blood Pressure Mean Blood Pressure Mean [Left Arm] Pulse Oximetry 97 90 Oxygen Delivery Method Room Air Nasal Cannula Oxygen Flow Rate 3 Sepsis Recent Fever Within 48 Hours Sepsis New/Unexplained Change in Mental Status Sepsis Action Taken by Nursing Laboratory Data 01/31/25 18:40 01/31/25 18:40 Lab Results 01/31/25 Range/Units 18:40 WBC 5.84 (4.8-10.8) K/ul RBC 5.90 H (4.20-5.40) M/uL Hgb 15.1 (12.0-16.0) g/dl Hct 46.7 (37.0-47.0) % MCV 79.2 L (80.0-100.0) fL MCH 25.6 (25.0-34.0) pg MCHC 32.3 (32.0-36.0) g/dL RDW Std Deviation 54.0 H (36.4-46.3) fL RDW Coeff of Margarita 19.9 H (11.5-14.5) % Plt Count 233 (130-400) K/uL MPV 10.5 (9.4-12.4) fL Immature Gran % (Auto) 0.5 % Neut % (Auto) 61.2 % Lymph % (Auto) 23.5 % Gaines % (Auto) 11.5 % Eos % (Auto) 2.1 % Baso % (Auto) 1.2 % Neut # (Auto) 3.58 (1.40-6.50) K/uL Lymph # (Auto) 1.37 (1.20-3.40) K/uL Gaines # (Auto) 0.67 H (0.11-0.59) K/uL Eos # (Auto) 0.12 (0.00-0.50) K/uL Baso # (Auto) 0.07 (0.00-0.20) K/uL Immature Gran # (Auto) 0.03 (0.01-0.20) K/uL Sodium 140 (136-145) mmol/L Potassium 4.1 (3.5-5.1) mmol/L Chloride 108 H (98-107) mmol/L Carbon Dioxide 23 (21-32) mmol/L Anion Gap 9 (3-11) BUN 27 H (6-23) mg/dl Creatinine 1.36 H (0.6-1.2) mg/dl Est Cr Clr Drug Dosing 28.3 ml/min eGFR 37.70 BUN/Creatinine Ratio 19.9 (10-20) Glucose 106 H (70-99(Fasting)) mg/dl Calcium 9.1 (8.6-10.3) mg/dl Magnesium 2.1 (1.7-2.4) mg/dl Total Bilirubin 0.7 (0.2-1.0) mg/dl AST 20 (13-39) U/L ALT 16 (7-52) U/L Alkaline Phosphatase 97 (34-104) U/L Total Creatine Kinase 35 (26-192) U/L Troponin I High Sens 6.0 (0-14) pg/ml Total Protein 7.2 (6.0-8.3) gm/dl Albumin 4.0 (3.4-5.0) gm/dl Globulin 3.2 (2.5-4.0) gm/dl Albumin/Globulin Ratio 1.3 (0.9-2) Administered Medications Discontinued Medications Hydromorphone HCl (Hydromorphone Inj 0.5 Mg/0.5 Ml Syr) 0.5 mg IV NOW STA Stop: 01/31/25 19:34 Last Admin: 01/31/25 19:44 Dose: 0.5 mg Documented By: veronika Hydromorphone HCl (Hydromorphone Inj 0.5 Mg/0.5 Ml Syr) 0.5 mg IV NOW STA Stop: 01/31/25 20:06 Last Admin: 01/31/25 20:07 Dose: 0.5 mg Documented By: veronika Hydromorphone HCl (Hydromorphone Inj 2 Mg/Ml Syr/Vial) 2 mg IV NOW STA Stop: 01/31/25 21:31 Last Admin: 01/31/25 21:41 Dose: 2 mg Documented By: veronika Imaging Data Radiologist's Impression: Chest X-Ray 01/31/25 19:33 Exam(s): XR CXR 1 VIEW EXAM: XR Chest, 1 View CLINICAL HISTORY: Reason for exam: pre op. TECHNIQUE: Frontal view of the chest. COMPARISON: Chest and rib radiographs on 04/17/2024 FINDINGS: Hardware: None. Lungs/pleura: Lower lung opacities likely represent atelectasis. Prominent lung markings. No focal consolidation. No pleural effusion or pneumothorax. Heart/mediastinum: Atherosclerotic changes in the aorta. Mild enlargement of the cardiac silhouette. Soft tissues: Unremarkable. Bones: No acute fracture. Upper abdomen: Normal. IMPRESSION: 1. Lower lung opacities likely represent atelectasis. 2. Prominent lung markings may be secondary to technique versus pulmonary vasculature congestion. Electronically signed by: Zhang Castañeda M.D. 01/31/25 21:23 PM Hip/Pelvis X-Ray 01/31/25 19:33 Exam(s): XR HIP + PELVIS, 2-3 views EXAM: XR Right Hip With Pelvis When Performed, 2 or 3 Views CLINICAL HISTORY: Reason for exam: R hip pain s/p fall. TECHNIQUE: Two or three views of the right hip with pelvis when performed. COMPARISON: Left hip radiographs on 08/04/2024 FINDINGS: Bones/joints: Displaced transcervical or basicervical fracture of the right femur. No hip dislocation. Mild degenerative changes of the hips. Degenerative changes of the visualized lower lumbar spine. No bony lesion. Soft tissues: Normal. No radiopaque foreign body identified. Other: Presumed phleboliths in the pelvis. Vascular calcifications. IMPRESSION: Displaced transcervical or basicervical fracture of the right femur. Electronically signed by: Zhang Castaeñda M.D. 01/31/25 21:40 PM Discharge Plan Visit Data Chief Complaint: Fall ED Provider: Jennifer Landa Discharge Problem: Fall, Closed fracture of proximal end of right femur, Acute pain of right hip Condition: Fair Forms Stand Alone Forms: [facility] Prescriptions Prescriptions: No Action nitroglycerin 0.4 mg tablet, sublingual 0.4 mg SL Q5M PRN (Reason: chest pain) cholecalciferol (vitamin D3) [D3-2000] 50 mcg (2,000 unit) capsule 50 mcg PO DAILY Qty: 90 2RF cinacalcet 30 mg tablet 30 mg PO DAILY Qty: 90 3RF magnesium glycinate 100 mg magnesium capsule 200 mg PO BID Eliquis 2.5 mg tablet 2.5 mg PO BID rosuvastatin 20 mg tablet 20 mg PO DAILY famotidine 20 mg tablet 20 mg PO BID aspirin 81 mg tablet,delayed release (DR/EC) 81 mg PO DAILY potassium chloride [Klor-Con M20] 20 mEq tablet,ER particles/crystals 20 meq PO TID metoprolol succinate 25 mg tablet extended release 24 hr 50 mg PO QAM lidocaine 4 % adhesive patch,medicated 1 patch TOPICAL DAILY Rx Instructions: APPLY TO RIGHT POSTERIOR BACK IN THE MORNING FOR BACK PAIN OFF IN THE EVENING AND REMOVE PER SCHEDULE cyanocobalamin (vitamin B-12) 1,000 mcg Tablet 1,000 mcg PO QAM amlodipine 5 mg tablet 5 mg PO HS acetaminophen [Tylenol Extra Strength] 500 mg Tablet 500 mg PO Q6H PRN (Reason: Pain) metoprolol succinate 25 mg tablet extended release 24 hr 25 mg PO HS albuterol sulfate 90 mcg/actuation HFA aerosol inhaler 2 puff INHALATION Q4H PRN (Reason: COUGH/CHEST TIGHTNESS, SHORTNESS OF BREATH) Saline Nasal 0.65 % Aerosol,[place] 2 spray INTRANASAL TID PRN (Reason: DRY NOSE/CONGESTION) Referrals Referrals: Juan Mcqueen [Primary Care Provider] -
[2025-01-31] MEDS: HYDROmorphone INJ 0.5 MG/0.5 ML SYR IV STA ×2 (19:44→20:07)
[2025-01-31 19:58] LABS: Hematocrit (blood only) 46.7 % (37.0-47.0); Hemoglobin 15.1 g/dl (12.0-16.0); Immature Granulocytes # (auto) 0.03 K/uL (0.01-0.20); Immature Granulocytes % (auto) 0.5 %; Mean Corpuscular Hemoglobin 25.6 pg (25.0-34.0); Mean Corpuscular Volume 79.2 fL (80.0-100.0); Platelet Count 233 K/uL (130-400); RDW Standard Deviation 54.0 fL (36.4-46.3); Red Blood Count 5.90 M/uL (4.20-5.40); White Blood Count 5.84 K/ul (4.8-10.8)
[2025-01-31 20:12] LABS: Alanine Aminotransferase 16.0 U/L (7-52); Albumin Globulin Ratio 1.3 (0.9-2); Albumin Level 4.0 gm/dl (3.4-5.0); Alkaline Phosphatase 97.0 U/L (34-104); Anion Gap 9.0 (3-11); Bilirubin,Total 0.7 mg/dl (0.2-1.0); Blood Urea Nitrogen 27.0 mg/dl (6-23); Calcium 9.1 mg/dl (8.6-10.3); Carbon Dioxide 23.0 mmol/L (21-32); Chloride 108.0 mmol/L (98-107); Creatine Kinase 35.0 U/L (26-192); Creatinine Clr Calc Pharmacy 28.3 ml/min; Globulin 3.2 gm/dl (2.5-4.0); Glucose 106.0 mg/dl (70-99(Fasting)); Magnesium 2.1 mg/dl (1.7-2.4); Potassium 4.1 mmol/L (3.5-5.1); Sodium 140.0 mmol/L (136-145); Total Protein 7.2 gm/dl (6.0-8.3)
--- NOTE | 2025-01-31 20:55 | History & Physical Report ---
Date of Service January 31, 2025 Assessment & Plan (1) Femur fracture, right: (2) Fall: (3) Hypoxia: Plan 89-year-old female PMHx CAD with stent to LAD, AAA repair (2006), CKD, A-fib on Eliquis, HTN, HLD, hyperparathyroidism, and history of polycythemia presenting from [facility] after a witnessed ground-level fall the night of arrival, suspected to be mechanical in nature. Her evaluation is overall unremarkable with exception of slightly elevated creatinine which appears to be at her baseline at 1.36, and hip/pelvis XR revealing R hip fracture. #R femur fracture/Fall Pt presenting for witnessed fall, after tripping over her walker per report, no symptoms prior to and no LOC; has received multiple doses of pain medication. Patient did not hit her head, she is on Eliquis with last dose suspected to have been 0700 on 01/31/2025. She continues to have significant pain, ordered additional pain management. Ortho to be consulted for surgical intervention. 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 Pt declines Ativan use in the setting of significant anxiety because her family members had a "bad reaction" to it. Opted for further pain management, so Dilaudid 2mg IV was provided to assist in pain and anxiety at time of admission. - CBC H&H stable 15.1/46.7; CMP Cr 1.39, BUN 27, glucose 106; CK 35; troponin 6 - BMP am - CXR atelectasis and prominent lung markings - Hip/pelvis XR displaced transcervical or basicervical fracture of R femur - EKG Afib w/ RBBB @ 82 bpm - NPO midnight - HOLD Eliquis + ASA - IVF LR @ 80 mL/hr x 1L initially ordered and started -- Held ~ 0020 given continued hypoxia, BNP 634 - Zofran prn N/V - Acetaminophen prn fever/pain, Dilaudid prn moderate-severe pain -- adjusted to d/c further opioids and added acetaminophen IV for pain management, pending clinical course - PT/OT will be needed - Ortho consulted - appreciate input + recs #Hypoxia Presenting w/ fall at home, found to be hypoxic in admission. She is s/p Dilaudid, also in the setting of ONEIDA which she does not use CPAP for. Prior h/o smoking, no O2 at baseline. Pt placed on high-flow at time of admission for additional respiratory support given continued hypoxia on Oxy-mask. ~ 0015 on 02/01, pt continued to require increased O2 - BiPAP ordered, Narcan 0.1mg x 1 given, and will provide small diuresis. If continued worsening hypoxia despite these interventions, will order chest CTA. - CBC no leukocytosis, trop 6.0; VBGs pH 7.24, pCO2 60; procal 0.05, BNP 634 - VBGs am - CXR lower lung opacities likely atelectasis, prominent lung markings may be 2/2 technique vs pulmonary vasculature congestion - No O2 at baseline; Wean as tolerable - Incentive spirometry - Narcan for resp depression - notify provider -- did order for 1 dose @ 0020 - Lasix 20mg IV x 1 #CKD, stage III Follows with nephro, most recent visit being 08/06/2024. H/o atrophic L kidney, angiography w/ stenotic L renal artery not amenable to angioplasty. Baseline Cr 1.9. No evidence of AUSTYN at time of admission. - Cr 1.39, BUN 27 - BMP am - UA pending #AFib- EKG at admission Afib w/ RBBB @ 82bpm; metoprolol, Eliquis - HOLD Eliquis, continue metoprolol #HTN- Amlodipine, metoprolol - continue #CAD s/p LAS stent/AAA- AAA repaired (2006); Stent to LAD; ASA, rosuvastatin - continue statin, hold ASA #Polycythemia- Follows with heme/onc, most recent visit being 11/03/2024. Pt is to have phlebotomy monthly for Hct > 50%; No renal mass identified 10/2024. H/o ONEIDA, declines CPAP - CBC am #Hyperparathyroidism- S/p bilateral resection lower parathyroid glands (2005); Ca 9.1 at admission; Sensipar - continue #GERD- Famotidine - continue Daughter, Letha, would like to be updated daily. Specifically after ortho evaluates patient 02/01 if she is not yet visiting her mother. Dispo: Admit, med/tele - hypoxia VTE Prophylaxis: On Eliquis - HOLD This document was dictated utilizing lettrs. Please excuse any grammatical errors that may be secondary to use of this software. Admission and Anticipated Discharge Date Admission Date: 01/31/2025 History of Present Illness Chief Complaint: Fall, R hip pain Primary Care Provider: [facility] 89-year-old female PMHx CAD with stent to LAD, AAA repair (2006), CKD, A-fib on Eliquis, HTN, HLD, hyperparathyroidism, and history of polycythemia presenting from [facility] after a witnessed ground-level fall the night of arrival, suspected to be mechanical in nature. Her daughter, Letha is present in room at time of visit, helps to provide some history. Does note that the patient is very anxious at baseline and discontinued her SSRIs by herself, but continues to have rather significant anxiety at her baseline. Patient states that she was getting up from the dinner table when she went to grab her walker and she tripped over the wheel, landing on the ground and wedged between 2 larger items. She states that she immediately had R hip pain and was unable to get up. She denies any symptoms prior to the event occurring, and denies any loss of consciousness. She did not hit her head or any other parts of her body. She states that she took her Eliquis the morning of arrival around [id number]. Of note, the patient did receive her influenza vaccine approximately 3 days [employer] and her daughter states that she may be a little more short of breath than normal which was noticed with some exertion, that the patient is without any additional complaints. She continues to be in significant discomfort during the exam, so history is very limited. She continues to states that her leg feels as though it is cramping and that it is "so painful." She is [place]. ED evaluation reveals CBC without leukocytosis, H&H 15.1/46.7 (stable); CMP chloride 108, creatinine 1.36, BUN 27, glucose 106; total CK 35, troponin 6; CXR lower lung opacities likely atelectasis, prominent lung markings secondary to technique versus pulmonary vascular congestion; hip/pelvis XR displaced transcervical or basicervical fracture of the R femur.; Provided with Dilaudid 0.5 mg IV x [address] see Dr[address] Sanchez's attestation for adjustments/additions to treatment plan. Allergies Allergy/AdvReac Type Severity Reaction Status Date / Time adhesive Allergy Unknown RASH Verified 08/07/24 13:34 atorvastatin Allergy Unknown . Unverified 01/31/25 21:40 cephalexin [From Keflex] Allergy Unknown . Unverified 01/31/25 21:40 codeine Allergy Unknown SICK Verified 01/31/25 21:39 latex Allergy Unknown "Rash, Verified 01/31/25 21:39 welts" pineapple Allergy Unknown . Verified 01/31/25 21:39 Home Medications Medication Instructions Recorded Confirmed Type nitroglycerin 0.4 mg sublingual 0.4 mg sublingual Q5M PRN chest 12/08/18 01/31/25 History tablet pain cinacalcet 30 mg tablet 30 mg PO DAILY #90 tabs 06/15/20 01/31/25 Rx cholecalciferol (vitamin D3) 50 50 mcg PO DAILY #90 caps 02/17/21 01/31/25 Rx mcg (2,000 unit) capsule (D3-2000) magnesium glycinate 200 mg PO BID 12/27/23 01/31/25 History potassium chloride 20 mEq 20 meq PO TID 12/27/23 01/31/25 History tablet,extended release(part/cryst) (Klor-Con M) apixaban 2.5 mg tablet (Eliquis) 2.5 mg PO BID 06/24/24 01/31/25 History metoprolol succinate 25 mg 50 mg PO QAM 06/24/24 01/31/25 History tablet,extended release 24 hr aspirin 81 mg tablet,delayed 81 mg PO DAILY 08/07/24 01/31/25 History release famotidine 20 mg tablet 20 mg PO BID 08/07/24 01/31/25 History rosuvastatin 20 mg tablet 20 mg PO DAILY 08/07/24 01/31/25 History acetaminophen 500 mg tablet 500 mg PO Q6H PRN Pain 01/31/25 01/31/25 History (Tylenol Extra Strength) albuterol sulfate 90 mcg/actuation 2 puff inhalation Q4H PRN 01/31/25 01/31/25 History aerosol inhaler COUGH/CHEST TIGHTNESS, SHORTNESS OF BREATH amlodipine 5 mg tablet 5 mg PO HS HYPERTENSION 01/31/25 01/31/25 History cyanocobalamin (vitamin B-12) 1,000 mcg PO QAM 01/31/25 01/31/25 History 1,000 mcg tablet lidocaine 4 % topical patch 1 patch topical DAILY 01/31/25 01/31/25 History metoprolol succinate 25 mg 25 mg PO HS 01/31/25 01/31/25 History tablet,extended release 24 hr sodium chloride 0.65 % nasal spray 2 spray intranasal TID PRN DRY 01/31/25 01/31/25 History aerosol (Saline Nasal) NOSE/CONGESTION Past Med/Surg History Problem List Hypoxia Femur fracture, right Acute pain of right hip (Acute) Closed fracture of proximal end of right femur (Acute) Fall (Acute) Primary hyperparathyroidism Chronic kidney disease, stage 3 Kriss's thyroiditis History of parathyroid surgery Osteoporosis (Chronic) Hypercalcemia (Chronic) CAD (coronary artery disease) (Chronic) Former smoker (Chronic) History of basal cell carcinoma (Chronic) Secondary hyperparathyroidism (Chronic) Vitamin D deficiency (Chronic) Medical History Cellulitis of right hand Multiple thyroid nodules Polycythemia History of abdominal aortic aneurysm (AAA) Hypertension Surgical History History of heart artery stent History of appendectomy Family History Mother Colon cancer Father Heart problem Sister Heart problem Colon cancer Social History Smoking Status: Never smoker Cigarettes Per Day: 1 pack; Do You Dip or Chew Tobacco: No; Hx Alcohol Use: Yes Alcohol type: wine Hx Substance Use: No Preferred Language: Turkmen Communication Ability: Effective Pulper Required: No Beliefs That Will Affect Care: None marital status: / Current Living Situation: [facility] Current Living Situation Comment: Lives at [facility] Feels Safe at Home: Yes Assistive Devices: Walker Review of Systems Review of Systems: All systems reviewed & are unremarkable except as noted in Subjective Physical Exam Physical Exam: General: Appears very uncomfortable during initial evaluation Skin: Warm and dry, chronic skin changes BLE Head: Normocephalic, atraumatic Eyes: PERRL, conjunctivae clear, sclera non-icteric ENT: External ear and ear canal without swelling, [place], hearing aides; nose atraumatic; good dentition, tongue normal appearance, pharynx normal Neck: Supple, no LAD Cardio: RRR, no M/G/R, S1 and S2 normal Resp: No respiratory distress, Lungs CTA in all lobes bilaterally, no wheezes, rales, or rhonchi Abdomen: Soft, symmetric, nontender; No masses or hepatosplenomegaly; Bowel sounds normoactive MSK: Pt has both legs pulled close to her body, will not extend them; she is tender over the R hip, normal pulses; pulses palpable and equal throughout; no edema. Neuro: Awake, alert; Sensation intact bilaterally; CN grossly intact Psych: Tearful, anxious. Daughter, Letha, present in room at time of visit. Results & Data Results & Data Vital Signs (Past 12 Hours) Vital Signs Temp Pulse Pulse Resp BP BP Pulse Ox 01/31/25 20:31 90 01/31/25 20:28 22 97 01/31/25 18:45 77 01/31/25 18:35 93 01/31/25 18:27 36.6 C 71 20 166/104 H 93 01/31/25 18:17 79 22 163/88 H 93 O2 Del Method O2 Flow Rate 01/31/25 20:31 Nasal Cannula 3 01/31/25 20:28 Room Air 01/31/25 18:45 01/31/25 18:35 Room Air 01/31/25 18:27 Room Air 01/31/25 18:17 Room Air Laboratory Results 01/31/25 18:40 WBC 5.84 RBC 5.90 H Hgb 15.1 Hct 46.7 MCV 79.2 L MCH 25.6 MCHC 32.3 RDW Std Deviation 54.0 H RDW Coeff of Margarita 19.9 H Plt Count 233 MPV 10.5 Immature Gran % (Auto) 0.5 Neut % (Auto) 61.2 Lymph % (Auto) 23.5 [place] % (Auto) 11.5 Eos % (Auto) 2.1 Baso % (Auto) 1.2 Neut # (Auto) 3.58 Lymph # (Auto) 1.37 [place] # (Auto) 0.67 H Eos # (Auto) 0.12 Baso # (Auto) 0.07 Immature Gran # (Auto) 0.03 Sodium 140 Potassium 4.1 Chloride 108 H Carbon Dioxide 23 Anion Gap 9 BUN 27 H Creatinine 1.36 H Est Cr Clr Drug Dosing 28.3 eGFR 37.70 BUN/Creatinine Ratio 19.9 Glucose 106 H Calcium 9.1 Magnesium 2.1 Total Bilirubin 0.7 AST 20 ALT 16 Alkaline Phosphatase 97 Total Creatine Kinase 35 Troponin I High Sens 6.0 Total Protein 7.2 Albumin 4.0 Globulin 3.2 Albumin/Globulin Ratio 1.3 Diagnostic Findings Chest X-Ray 01/31/25 19:33 Exam(s): XR CXR 1 VIEW EXAM: XR Chest, 1 View CLINICAL HISTORY: Reason for exam: pre op. TECHNIQUE: Frontal view of the chest. COMPARISON: Chest and rib radiographs on 04/17/2024 FINDINGS: Hardware: None. Lungs/pleura: Lower lung opacities likely represent atelectasis. Prominent lung markings. No focal consolidation. No pleural effusion or pneumothorax. Heart/mediastinum: Atherosclerotic changes in the aorta. Mild enlargement of the cardiac silhouette. Soft tissues: Unremarkable. Bones: No acute fracture. Upper abdomen: Normal. IMPRESSION: 1. Lower lung opacities likely represent atelectasis. 2. Prominent lung markings may be secondary to technique versus pulmonary vasculature congestion. Electronically signed by: Zhang Castañeda M.D. 01/31/25 21:23 PM Hip/Pelvis X-Ray 01/31/25 19:33 Exam(s): XR HIP + PELVIS, 2-3 views EXAM: XR Right Hip With Pelvis When Performed, 2 or 3 Views CLINICAL HISTORY: Reason for exam: R hip pain s/p fall. TECHNIQUE: Two or three views of the right hip with pelvis when performed. COMPARISON: Left hip radiographs on 08/04/2024 FINDINGS: Bones/joints: Displaced transcervical or basicervical fracture of the right femur. No hip dislocation. Mild degenerative changes of the hips. Degenerative changes of the visualized lower lumbar spine. No bony lesion. Soft tissues: Normal. No radiopaque foreign body identified. Other: Presumed phleboliths in the pelvis. Vascular calcifications. IMPRESSION: Displaced transcervical or basicervical fracture of the right femur. Electronically signed by: Zhang Castañeda M.D. 01/31/25 21:40 PM Medications Administered Dilaudid 0.5 mg IV x 2 ECG Additional Comments: A-fib, incomplete RBBB 82 bpm, QRS 102, QT/QTc 416/46, PRT*/6 Code Status & VTE Plan Code Status Full Supervising Physician Co-Signing Physician Notes Patient seen examined, chart reviewed, case discussed with CARLITA Florentino I agree with assessment and plan as document above. In brief, patient is an 89-year-old female with history of coronary artery disease, CKD, atrial fibrillation on Eliquis (last dose 02/01/2020 5 AM) presenting after ground-level fall at home resulting in right hip fracture. Patient in significant pain in the ER. Was given 2 milligrams of IV Dilaudid for pain control. After which, patient became more hypoxic. Upon further questioning, daughter did report the patient has been feeling more short of breath for the last several days. No underlying lung disease. On physical exam patient is very hard of hearing. Insignificant pain in bed. Does answer some questions and follow commands but otherwise does not provide meaningful history + S1, S2, regular Lungs CTA with diminished breath sounds in the bases, no rales/rhonchi/wheezes Abdomensoft, nontender, nondistended Extremities neurovascularly intact Labs and images reviewed. VBG with respiratory acidosis. Mild elevation of BNP as well Assessment/plan: #Hypoxia Incentive spirometry Lasix given BiPAP for now Repeat VBG in the morning Narcan available as needed #Hip fracturepatient on Eliquis. Will hold Optimization of respiratory status prior to proceeding with surgery Pain control with 3 times daily IV Tylenol Remainder as above PG Care Time/CCT Total # of Minutes Spent Total Time Spent with Patient: Total time spent is greater than 50% in coordination of care (as documented) at patient's floor/unit and/or counseling patient: Coding Level of Care Code 74468 INT INP/OBS CARE 3/75MIN Diagnoses Femur fracture, right S72.91XA Fall W19.XXXA Hypoxia R09.02
--- NOTE | 2025-01-31 21:24 | XRay Report ---
Exam(s): XR CXR 1 VIEW EXAM: XR Chest, 1 View CLINICAL HISTORY: Reason for exam: pre op. TECHNIQUE: Frontal view of the chest. COMPARISON: Chest and rib radiographs on 04/17/2024 FINDINGS: Hardware: None. Lungs/pleura: Lower lung opacities likely represent atelectasis. Prominent lung markings. No focal consolidation. No pleural effusion or pneumothorax. Heart/mediastinum: Atherosclerotic changes in the aorta. Mild enlargement of the cardiac silhouette. Soft tissues: Unremarkable. Bones: No acute fracture. Upper abdomen: Normal. IMPRESSION: 1. Lower lung opacities likely represent atelectasis. 2. Prominent lung markings may be secondary to technique versus pulmonary vasculature congestion. Electronically signed by: Zhang Castañeda M.D. 01/31/25 21:23 PM
[2025-01-31] MEDS: HYDROmorphone INJ 2 MG/ML SYR/VIAL IV STA (21:41)
--- NOTE | 2025-01-31 21:41 | XRay Report ---
Exam(s): XR HIP + PELVIS, 2-3 views EXAM: XR Right Hip With Pelvis When Performed, 2 or 3 Views CLINICAL HISTORY: Reason for exam: R hip pain s/p fall. TECHNIQUE: Two or three views of the right hip with pelvis when performed. COMPARISON: Left hip radiographs on 08/04/2024 FINDINGS: Bones/joints: Displaced transcervical or basicervical fracture of the right femur. No hip dislocation. Mild degenerative changes of the hips. Degenerative changes of the visualized lower lumbar spine. No bony lesion. Soft tissues: Normal. No radiopaque foreign body identified. Other: Presumed phleboliths in the pelvis. Vascular calcifications. IMPRESSION: Displaced transcervical or basicervical fracture of the right femur. Electronically signed by: Zhang Castañeda M.D. 01/31/25 21:40 PM
[2025-01-31] MEDS ORDERED: ACETAMINOPHEN 1,000 MG/100 ML VIAL IV PRN (23:09)
[2025-01-31] MEDS ORDERED: ONDANSETRON INJ 2 MG/ML 2 ML VIAL IV PRN (23:39)
[2025-01-31] MEDS ORDERED: NALOXONE HCL 0.4 MG/1 ML VIAL/CARP IV PRN (23:39)
[2025-01-31] MEDS ORDERED: MELATONIN 3 MG TAB PO PRN (23:39)
[2025-01-31] MEDS ORDERED: POLYETHYLENE (MIRALAX) 17 GM PACK PO PRN (23:39)
[2025-01-31] MEDS ORDERED: MAGNESIUM HYDROXIDE SUSP 30 ML UDC PO PRN (23:39)
[2025-01-31] MEDS ORDERED: HYDROmorphone INJ 0.5 MG/0.5 ML SYR IV PRN ×2 (23:39)
[2025-02-01] MEDS: METOPROLOL SUCC 25MG EXT REL TAB PO STA (00:06)
[2025-02-01 00:07] LABS: Base Excess VBG -2.8 mEq/L; HCO3 VBG 26 mmol/L; Oxygen Saturation VBG < 60.0 %; PCO2 VBG 60 mmHg (38-50); PO2 VBG 33 mmHg; pH VBG 7.24 (7.36-7.41)
[2025-02-01] MEDS: LACTATED RINGER'S 1,000 ML IV SCH (00:07)
[2025-02-01] MEDS: NALOXONE HCL 0.4 MG/1 ML VIAL/CARP IV STA (00:42)
[2025-02-01] MEDS: ACETAMINOPHEN 1,000 MG/100 ML VIAL IV PRN (00:48)
[2025-02-01 01:45] LABS: Appearance Urine Clear (Clear); Bacteria Urine Automated None Seen (None Seen); Epithelial Cell Urine Auto 0-2 /hpf (0-2); Glucose Urine UA Negative (Negative); RBC Urine Automated 0-2 /hpf (0-2); WBC Urine Automated 0-5 /hpf (0-5)
[2025-02-01] MEDS: FUROSEMIDE INJ 20 MG/2 ML VIAL IV STA (01:50)
[2025-02-01 06:09] LABS: Base Excess VBG -0.9 mEq/L; HCO3 VBG 26 mmol/L; Oxygen Saturation VBG < 60.0 %; PCO2 VBG 50 mmHg (38-50); PO2 VBG 26 mmHg; pH VBG 7.32 (7.36-7.41)
[2025-02-01 06:15] LABS: Hematocrit (blood only) 48.1 % (37.0-47.0); Hemoglobin 14.7 g/dl (12.0-16.0); Mean Corpuscular Hemoglobin 24.6 pg (25.0-34.0); Mean Corpuscular Volume 80.4 fL (80.0-100.0); Platelet Count 214 K/uL (130-400); RDW Standard Deviation 55.5 fL (36.4-46.3); Red Blood Count 5.98 M/uL (4.20-5.40); White Blood Count 14.39 K/ul (4.8-10.8)
[2025-02-01 06:37] LABS: Anion Gap 9.0 (3-11); Blood Urea Nitrogen 27.0 mg/dl (6-23); Calcium 8.9 mg/dl (8.6-10.3); Carbon Dioxide 25.0 mmol/L (21-32); Chloride 107.0 mmol/L (98-107); Creatinine Clr Calc Pharmacy 26.2 ml/min; Glucose 179.0 mg/dl (70-99(Fasting)); Potassium 4.6 mmol/L (3.5-5.1); Sodium 141.0 mmol/L (136-145)
--- NOTE | 2025-02-01 07:48 | Orthopedic Consultation ---
Date of Service February 01, 2025 Assessment & Plan (1) Femur fracture, right: 89-year-old female admitted to the hospital floor for right femoral neck fracture. Discussed treatment options with the patient. She has elected to continue with right hip hemiarthroplasty. Patient was consented and will undergo right hip hemiarthroplasty later today with either Dr. Erick Sanchez or Dr. Espinoza Soto. I also discussed the patient with her daughter, Letha Tsai, who is POA. She agrees that we should proceed with the hemiarthroplasty. Continue Current Treatment Continue NPO. Weight bearing status: Nonweightbearing Pain control and anxiolytic as needed. DVT prophylaxis: Continue with SCD, hold Eliquis and ASA until POD 1 Remainder care per primary team. History of Present Illness Reason for Consultation: Right femoral neck fracture Requesting Physician: . Attending Physician: Isma Tobias DO 89-year-old female is admitted to the floor after presenting to the ER with right hip fracture. She was attending dinner at [facility] when she tripped on her walker and had a ground-level fall onto her right hip. She immediately felt overwhelming pain. She was brought to the emergency room for evaluation and was diagnosed with a right femoral neck fracture. Patient has a complex medical history to include CAD with stents to LAD, AAA repair, CKD, A- fib for which she takes Eliquis twice daily, HTN, HLD, hyperparathyroidism, and polycythemia. Last dose of Eliquis was 01/31/2025 at 0700. Speaking with the patient this morning at bedside her pain is well-controlled as long as she does not move around in bed. Allergies Allergy/AdvReac Type Severity Reaction Status Date / Time adhesive Allergy Unknown RASH Verified 08/07/24 13:34 atorvastatin Allergy Unknown . Unverified 01/31/25 21:40 cephalexin [From Keflex] Allergy Unknown . Unverified 01/31/25 21:40 codeine Allergy Unknown SICK Verified 01/31/25 21:39 latex Allergy Unknown "Rash, Verified 01/31/25 21:39 welts" pineapple Allergy Unknown . Verified 01/31/25 21:39 Home Medications Medication Instructions Recorded Confirmed Type nitroglycerin 0.4 mg sublingual 0.4 mg sublingual Q5M PRN chest 12/08/18 01/31/25 History tablet pain cinacalcet 30 mg tablet 30 mg PO DAILY #90 tabs 06/15/20 01/31/25 Rx cholecalciferol (vitamin D3) 50 50 mcg PO DAILY #90 caps 02/17/21 01/31/25 Rx mcg (2,000 unit) capsule (D3-2000) magnesium glycinate 200 mg PO BID 12/27/23 01/31/25 History potassium chloride 20 mEq 20 meq PO TID 12/27/23 01/31/25 History tablet,extended release(part/cryst) (Klor-Con M) apixaban 2.5 mg tablet (Eliquis) 2.5 mg PO BID 06/24/24 01/31/25 History metoprolol succinate 25 mg 50 mg PO QAM 06/24/24 01/31/25 History tablet,extended release 24 hr aspirin 81 mg tablet,delayed 81 mg PO DAILY 08/07/24 01/31/25 History release famotidine 20 mg tablet 20 mg PO BID 08/07/24 01/31/25 History rosuvastatin 20 mg tablet 20 mg PO DAILY 08/07/24 01/31/25 History acetaminophen 500 mg tablet 500 mg PO Q6H PRN Pain 01/31/25 01/31/25 History (Tylenol Extra Strength) albuterol sulfate 90 mcg/actuation 2 puff inhalation Q4H PRN 01/31/25 01/31/25 History aerosol inhaler COUGH/CHEST TIGHTNESS, SHORTNESS OF BREATH amlodipine 5 mg tablet 5 mg PO HS HYPERTENSION 01/31/25 01/31/25 History cyanocobalamin (vitamin B-12) 1,000 mcg PO QAM 01/31/25 01/31/25 History 1,000 mcg tablet lidocaine 4 % topical patch 1 patch topical DAILY 01/31/25 01/31/25 History metoprolol succinate 25 mg 25 mg PO HS 01/31/25 01/31/25 History tablet,extended release 24 hr sodium chloride 0.65 % nasal spray 2 spray intranasal TID PRN DRY 01/31/25 01/31/25 History aerosol (Saline Nasal) NOSE/CONGESTION Past Med/Surg History Problem List (Updated 02/01/25 @ 08:05 by Juan M Orozco PA-C) Hypoxia Femur fracture, right Acute pain of right hip (Acute) Closed fracture of proximal end of right femur (Acute) Fall (Acute) Primary hyperparathyroidism Chronic kidney disease, stage 3 Kriss's thyroiditis History of parathyroid surgery Osteoporosis (Chronic) Hypercalcemia (Chronic) CAD (coronary artery disease) (Chronic) Former smoker (Chronic) History of basal cell carcinoma (Chronic) Secondary hyperparathyroidism (Chronic) Vitamin D deficiency (Chronic) Medical History Cellulitis of right hand Multiple thyroid nodules Polycythemia History of abdominal aortic aneurysm (AAA) Hypertension Surgical History History of heart artery stent History of appendectomy Family History Mother Colon cancer Father Heart problem Sister Heart problem Colon cancer Social History Smoking Status: Never smoker Cigarettes Per Day: 1 pack; Do You Dip or Chew Tobacco: No; Hx Alcohol Use: Yes Alcohol type: wine Hx Substance Use: No Preferred Language: Telugu Communication Ability: Effective Roofing Supervisor Required: No Beliefs That Will Affect Care: None marital status: / Current Living Situation: [facility] Current Living Situation Comment: [facility] Other Information That Helps Us Care for You: No Feels Safe at Home: Yes Safety Concerns: Feels Safe At This Time Assistive Devices: Glasses and Walker Review of Systems All systems reviewed & are unremarkable except as noted in HPI & below. Physical Exam Elderly female reclined in hospital bed. Anxious but in no acute distress. VITALS: Reviewed. WEIGHT/BMI reviewed. HEENT: -Head: NC/AT; -Eyes: PERRL, EOMI. No discharge or redness; -Ears: External ears are normal. -Nose: Normal nares. -Mouth and throat: MMM NECK: Trachea is midline, no masses CV: Irregularly irregular rhythm, no m/r/g. LUNGS: CTAB, no w/r/c. ABD: Soft, NT/ND, NBS. : N/A SKIN: Warm, well perfused. MSK: Right leg is extended and externally rotated. Tenderness to palpation over the right hip. Range of motion not tested secondary to pain. Patient is able to extend and flex the knee. Patient has good ankle motion. DP and PT pulses are strong. Light touch sensation is intact in the right lower extremity. Results & Data Results & Data Laboratory Results 02/01/25 02/01/25 02/01/25 Unknown 05:50 05:44 WBC 14.39 H RBC 5.98 H Hgb 14.7 Hct 48.1 H MCV 80.4 MCH 24.6 L MCHC 30.6 L RDW Std Deviation 55.5 H RDW Coeff of Margarita 20.0 H Plt Count 214 MPV 10.1 Immature Gran % (Auto) Neut % (Auto) Lymph % (Auto) Stark % (Auto) Eos % (Auto) Baso % (Auto) Neut # (Auto) Lymph # (Auto) Stark # (Auto) Eos # (Auto) Baso # (Auto) Immature Gran # (Auto) VBG pH 7.32 L VBG pCO2 50 VBG pO2 26 VBG HCO3 26 VBG O2 Saturation < 60.0 VBG Base Excess -0.9 Sodium 141 Potassium 4.6 Chloride 107 Carbon Dioxide 25 Anion Gap 9 BUN 27 H Creatinine 1.47 H Est Cr Clr Drug Dosing 26.2 eGFR 34.34 BUN/Creatinine Ratio 18.4 Glucose 179 H Calcium 8.9 Magnesium Total Bilirubin AST ALT Alkaline Phosphatase Total Creatine Kinase Troponin I High Sens B-Natriuretic Peptide Total Protein Albumin Globulin Albumin/Globulin Ratio Procalcitonin Urine Color Urine Appearance Urine pH Ur Specific [place] Urine Protein Urine Glucose (UA) Urine Ketones Urine Blood Urine Nitrite Urine Bilirubin Urine Urobilinogen Ur Leukocyte Esterase Urine WBC (Auto) Urine RBC (Auto) U Hyaline Cast (Auto) U Epithel Cells (Auto) Urine Bacteria (Auto) Hyaline Casts Urine Comment Nasal Screen MRSA (PCR) Negative 02/01/25 01/31/25 01/31/25 01:13 23:37 18:40 WBC 5.84 RBC 5.90 H Hgb 15.1 Hct 46.7 MCV 79.2 L MCH 25.6 MCHC 32.3 RDW Std Deviation 54.0 H RDW Coeff of Margarita 19.9 H Plt Count 233 MPV 10.5 Immature Gran % (Auto) 0.5 Neut % (Auto) 61.2 Lymph % (Auto) 23.5 Stark % (Auto) 11.5 Eos % (Auto) 2.1 Baso % (Auto) 1.2 Neut # (Auto) 3.58 Lymph # (Auto) 1.37 Stark # (Auto) 0.67 H Eos # (Auto) 0.12 Baso # (Auto) 0.07 Immature Gran # (Auto) 0.03 VBG pH 7.24 L VBG pCO2 60 H VBG pO2 33 VBG HCO3 26 VBG O2 Saturation < 60.0 VBG Base Excess -2.8 Sodium 140 Potassium 4.1 Chloride 108 H Carbon Dioxide 23 Anion Gap 9 BUN 27 H Creatinine 1.36 H Est Cr Clr Drug Dosing 28.3 eGFR 37.70 BUN/Creatinine Ratio 19.9 Glucose 106 H Calcium 9.1 Magnesium 2.1 Total Bilirubin 0.7 AST 20 ALT 16 Alkaline Phosphatase 97 Total Creatine Kinase 35 Troponin I High Sens 6.0 B-Natriuretic Peptide 634 H Total Protein 7.2 Albumin 4.0 Globulin 3.2 Albumin/Globulin Ratio 1.3 Procalcitonin 0.05 Urine Color Yellow Urine Appearance Clear Urine pH 5.0 Ur Specific [place] 1.020 Urine Protein 2+ H Urine Glucose (UA) Negative Urine Ketones Negative Urine Blood Trace H Urine Nitrite Negative Urine Bilirubin Negative Urine Urobilinogen Negative Ur Leukocyte Esterase Negative Urine WBC (Auto) 0-5 Urine RBC (Auto) 0-2 U Hyaline Cast (Auto) 6-10 H U Epithel Cells (Auto) 0-2 Urine Bacteria (Auto) None Seen Hyaline Casts Present A Urine Comment Nasal Screen MRSA (PCR) Diagnostic Findings Chest X-Ray 01/31/25 19:33 Exam(s): XR CXR 1 VIEW EXAM: XR Chest, 1 View CLINICAL HISTORY: Reason for exam: pre op. TECHNIQUE: Frontal view of the chest. COMPARISON: Chest and rib radiographs on 04/17/2024 FINDINGS: Hardware: None. Lungs/pleura: Lower lung opacities likely represent atelectasis. Prominent lung markings. No focal consolidation. No pleural effusion or pneumothorax. Heart/mediastinum: Atherosclerotic changes in the aorta. Mild enlargement of the cardiac silhouette. Soft tissues: Unremarkable. Bones: No acute fracture. Upper abdomen: Normal. IMPRESSION: 1. Lower lung opacities likely represent atelectasis. 2. Prominent lung markings may be secondary to technique versus pulmonary vasculature congestion. Electronically signed by: Zhang Castañeda M.D. 01/31/25 21:23 PM Hip/Pelvis X-Ray 01/31/25 19:33 Exam(s): XR HIP + PELVIS, 2-3 views EXAM: XR Right Hip With Pelvis When Performed, 2 or 3 Views CLINICAL HISTORY: Reason for exam: R hip pain s/p fall. TECHNIQUE: Two or three views of the right hip with pelvis when performed. COMPARISON: Left hip radiographs on 08/04/2024 FINDINGS: Bones/joints: Displaced transcervical or basicervical fracture of the right femur. No hip dislocation. Mild degenerative changes of the hips. Degenerative changes of the visualized lower lumbar spine. No bony lesion. Soft tissues: Normal. No radiopaque foreign body identified. Other: Presumed phleboliths in the pelvis. Vascular calcifications. IMPRESSION: Displaced transcervical or basicervical fracture of the right femur. Electronically signed by: Zhang Castañeda M.D. 01/31/25 21:40 PM PG Care Time/CCT Total # of Minutes Spent Total Time Spent with Patient: Total time spent is greater than 50% in coordination of care (as documented) at patient's floor/unit and/or counseling patient: [place] [address] IN/OBS CONSULT LVL 5,80M Patient Type New History Expanded Problem Focused Exam Expanded Problem Focused Medical Decision Making Moderate Complexity Diagnoses Other closed fracture of head or neck of right femur, initial encounter S72.091A Encounter type: initial encounter Femur location: other head and neck Fracture type: closed (1) Femur fracture, right Encounter type: initial encounter Femur location: other head and neck Fracture type: closed Qualified Code(s): S72.091A - Other fracture of head and neck of right femur, initial encounter for closed fracture
--- NOTE | 2025-02-01 12:26 | Anesthesiology Consultation ---
Date of Service February 01, 2025 Assessment & Plan Chart Review Chart Review: Acceptable Risk for Surgery and Patient NOT seen in Pre Admission Testing History Surgery Operation Date: 02/01/25 08:40 Proposed Procedures p Right Hip Cemented Hemiarthroplasty - Erick Sanchez MD Height/Weight Height: 5 ft 7 in Weight: 66.5 kg Allergies Allergy/AdvReac Type Severity Reaction Status Date / Time adhesive Allergy Unknown RASH Verified 08/07/24 13:34 atorvastatin Allergy Unknown . Unverified 01/31/25 21:40 cephalexin [From Keflex] Allergy Unknown . Unverified 01/31/25 21:40 codeine Allergy Unknown SICK Verified 01/31/25 21:39 latex Allergy Unknown "Rash, Verified 01/31/25 21:39 welts" pineapple Allergy Unknown . Verified 01/31/25 21:39 Medications Home Medications Medication Instructions Recorded Confirmed Last Taken nitroglycerin 0.4 mg sublingual 0.4 mg sublingual Q5M PRN chest 12/08/18 01/31/25 Unknown tablet pain cinacalcet 30 mg tablet 30 mg PO DAILY #90 tabs 06/15/20 01/31/25 Unknown cholecalciferol (vitamin D3) 50 50 mcg PO DAILY #90 caps 02/17/21 01/31/25 Unknown mcg (2,000 unit) capsule (D3-2000) magnesium glycinate 200 mg PO BID 12/27/23 01/31/25 Unknown potassium chloride 20 mEq 20 meq PO TID 12/27/23 01/31/25 Unknown tablet,extended release(part/cryst) (Klor-Con M) apixaban 2.5 mg tablet (Eliquis) 2.5 mg PO BID 06/24/24 01/31/25 Unknown metoprolol succinate 25 mg 50 mg PO QAM 06/24/24 01/31/25 Unknown tablet,extended release 24 hr aspirin 81 mg tablet,delayed 81 mg PO DAILY 08/07/24 01/31/25 Unknown release famotidine 20 mg tablet 20 mg PO BID 08/07/24 01/31/25 Unknown rosuvastatin 20 mg tablet 20 mg PO DAILY 08/07/24 01/31/25 Unknown acetaminophen 500 mg tablet 500 mg PO Q6H PRN Pain 01/31/25 01/31/25 Unknown (Tylenol Extra Strength) albuterol sulfate 90 mcg/actuation 2 puff inhalation Q4H PRN 01/31/25 01/31/25 Unknown aerosol inhaler COUGH/CHEST TIGHTNESS, SHORTNESS OF BREATH amlodipine 5 mg tablet 5 mg PO HS HYPERTENSION 01/31/25 01/31/25 Unknown cyanocobalamin (vitamin B-12) 1,000 mcg PO QAM 01/31/25 01/31/25 Unknown 1,000 mcg tablet lidocaine 4 % topical patch 1 patch topical DAILY 01/31/25 01/31/25 Unknown metoprolol succinate 25 mg 25 mg PO HS 01/31/25 01/31/25 Unknown tablet,extended release 24 hr sodium chloride 0.65 % nasal spray 2 spray intranasal TID PRN DRY 01/31/25 01/31/25 Unknown aerosol (Saline Nasal) NOSE/CONGESTION Active Medications Generic Name Dose Route Start Last Admin Trade Name Freq PRN Reason Stop Dose Admin Acetaminophen 1,000 mg in 100 mls @ 400 mls/hr 02/01/25 00:19 02/01/25 01:05 Ofirmev IV 02/03/25 23:08 Infused TID PRN Infusion Fever/pain NPO Date Last Intake of Fluids: 01/31/25 Time Last Intake of Fluids: 23:59 Past Medical History Medical History Cellulitis of right hand Multiple thyroid nodules Polycythemia History of abdominal aortic aneurysm (AAA) Hypertension Past Family History Family History Mother Colon cancer Father Heart problem Sister Heart problem Colon cancer Past Surgical History Surgical History History of heart artery stent History of appendectomy Social History Smoking Status: Never smoker tobacco type: cigarettes Smoking cigarettes per day: 1 pack Do You Dip or Chew Tobacco: No Hx Alcohol Use: Yes Alcohol type: wine alcohol intake frequency: holidays/special occasions only Hx Substance Use: No substance use type: does not use Physical Exam Vital Signs Last Vital Signs Temp 36.7 C 02/01/25 11:11 Pulse 77 02/01/25 11:11 Resp 16 02/01/25 11:11 BP 141/93 H 02/01/25 11:11 Pulse Ox 94 02/01/25 11:11 O2 Del Method Room Air 02/01/25 11:11 O2 Flow Rate 40 02/01/25 08:06 FiO2 50 02/01/25 07:55 Testing Laboratory Results 02/01/25 05:44 02/01/25 05:44 Urine Color Yellow 02/01/25 01:13 Urine Appearance Clear (Clear) 02/01/25 01:13 Urine pH 5.0 (4.5-7.5) 02/01/25 01:13 Ur Specific [place] 1.020 (1.000-1.030) 02/01/25 01:13 Urine Protein 2+ (Negative) H 02/01/25 01:13 Urine Glucose (UA) Negative (Negative) 02/01/25 01:13 Urine Ketones Negative (Negative) 02/01/25 01:13 Urine Nitrite Negative (Negative) 02/01/25 01:13 Ur Leukocyte Esterase Negative (Negative) 02/01/25 01:13 Urine WBC (Auto) 0-5 /hpf (0-5) 02/01/25 01:13 Urine RBC (Auto) 0-2 /hpf (0-2) 02/01/25 01:13 U Hyaline Cast (Auto) 6-10 /lpf (0-2) H 02/01/25 01:13 U Epithel Cells (Auto) 0-2 /hpf (0-2) 02/01/25 01:13 Urine Bacteria (Auto) None Seen (None Seen) 02/01/25 01:13
--- NOTE | 2025-02-01 12:51 | History & Physical Bridge Note ---
Date of Service February 01, 2025 History & Physical Bridge Note I have examined the patient, reviewed the History & Physical and in the interval since the performance of the History & Physical I have noted the following changes of clinical significance: no changes noted
[2025-02-01] MEDS ORDERED: ROCURONIUM BROMIDE 10 MG/ML 5 ML VIAL IV ONE (13:02)
[2025-02-01] MEDS ORDERED: PROPOFOL IV EMULSION 10 MG/ML 20 ML VIAL IV ONE (13:02)
[2025-02-01] MEDS ORDERED: ONDANSETRON INJ 2 MG/ML 2 ML VIAL ONE (13:02)
[2025-02-01] MEDS ORDERED: DEXAMETHASONE SOD INJ 4 MG/ML VIAL ONE (13:02)
[2025-02-01] MEDS ORDERED: LIDOCAINE 2% 2 ML VIAL/AMP(20MG/ML) INFIL ONE (13:02)
[2025-02-01] MEDS ORDERED: ATROPINE SULFATE 0.1 MG/ML 10ML SYR IV PRN (13:25)
[2025-02-01] MEDS ORDERED: ONDANSETRON INJ 2 MG/ML 2 ML VIAL IV PRN (13:25)
[2025-02-01] MEDS ORDERED: PROMETHAZINE HCL 6.25 MG in SODIUM CHLORIDE 0.9% 50 ML IV PRN (13:25)
[2025-02-01] MEDS ORDERED: PHENYLEPHRINE 100MCG/ML 5ML SYR ONE (13:47)
[2025-02-01] MEDS: TRANEXAMIC ACID / 0.7% NACL 1,000 MG/100 ML BAG IV ONE (13:55)
[2025-02-01] MEDS: BUPIVACAINE/EPINEPHRINE 0.5% MPF 1:200,000 30 ML VIAL ONE (15:07)
[2025-02-01] MEDS ORDERED: SUGAMMADEX SODIUM 200 MG/2 ML VIAL IV ONE (15:18)
--- NOTE | 2025-02-01 15:39 | Operative Report ---
PG Post Operative Report Pre & Post Diagnosis Operation Date: 02/01/25 08:40 Pre-Op Diagnosis: FALL, RIGHT DISPLACED FEMORAL NECK FRACTURE Post-Op Diagnosis: FALL, RIGHT DISPLACED FEMORAL NECK FRACTURE I identified the patient and participated in the time-out.: Yes Procedure Operation Date: 02/01/25 08:40 Actual Procedures p Right Hip Cemented Hemiarthroplasty(Right) - Erick Sanchez MD Surgeon Erick Sanchez MD Credentialing Coordinator Nabor Orozco PA-C Estimated Blood Loss 100 Findings Consistent with Post-Op Diagnosis Operative findings revealed displaced comminuted displaced very vertical left femoral neck fracture and extending from the subcapital area to the lesser trochanter. Diffuse osteopenia. Specimens Right femoral head sent for pathology. Anesthesia Type General Complications none Disposition Accompanied Patient To Recovery: No Indications Patient is an 89-year-old female with multiple medical comorbidities who sustained a mechanical fall. She had acute onset of pain and could not ambulate afterwards. She was brought to the emergency room x-ray Viel displaced very vertical left femoral neck fracture. The patient was admitted by the hospitalist service, medically optimized and indicated for surgical fixation/stabilization/repair. Description of Procedure Operative implants consist of: 1. Mani/Biomet size 9 high offset echo cemented femoral stem. 2. Distal cement centralizer. 3. Small cement restrictor. 4. +6+28 mm metal articular ball with a 48 mm bipolar shell and liner. The patient was taken to the op room, identified, placed on the operating table in the supine position. All contact areas were appropriately padded. IV antibiotics and 1 g of TXA was given. A general anesthetic was implemented. The patient was then placed in the left lateral cubitus position. An axillary roll was placed. A stool Birkett position was used for positioning. The right hip and leg were then prepped and draped in the usual sterile fashion. A posterior lateral approach to the right hip was then performed through a curvilinear incision centered over the greater trochanter. Sharp dissection scalp through subcutaneous tissue down of the IT band gluteal fascia. The IT band gluteal fascia incised longitudinally in line with skin incision. The underlying greater trochanter bursa was excised. Its fairly hemorrhagic. The e xternal rotators were then carefully taken off the posterior aspect of the femur. The posterior capsule was then incised and each flap was then tagged for later repair. The hip was internally rotated. A femoral neck osteotomy cut was made. I had to make the cut right above the lesser trochanter due to the nature of the fracture. Was a very vertical fracture and very unstable and comminuted. The femoral head and neck were then removed. The femur was retracted anteriorly. The acetabulum was sized to a size 48. Attention then drawn the femur. The proximal femur was entered with a cookie cutter followed by canal finder and lateralizing reamer. I then broached beginning with size 7 progressing up to a 11. We had good fit with this. I trialed the hip. The fracture was just at the base of the neck. We elected to use a +6 and neck to maximize stability and try and restore leg lengths. I did not feel I need to sit the implant trial. The hip was fully stable. The soft tissue tension seemed appropriate. We elected to place these implants. All trial implants were removed. Distal cement plug was placed. The canal was irrigated extensively. A double batch Palacos G cement went was mixed and injected in the canal. A size 9 high offset to echo cemented femoral stem was then placed. Once the cement hardened a +6/28 mm articular ball with a 48 mm bipolar shell and liner were placed. Hip was located. It was once again found to be stable. Attention turned toward closing. I did inject locally with 60 cc of half percent Marcaine with epinephrine. The posterior capsule was then repaired with #2 Tycron suture in a [id number] fashion. The IT band gluteal fascia was then closed with #1 PDS suture in a running fashion. The subcutaneous tissue was then closed with 2 layers of the deep layer #1 Vicryl suture and subcutaneous tissues with 2-0 Dexon suture in a buried interrupted fashion. Skin was closed with skin yamilet. Leg was then cleaned and dried and a sterile dressing was Xeroform, 4 x 4's, sterile ABD pad and foam tape was applied. The patient was then transferred to the recovery room in stable condition. Patient tolerated the procedure well and there were no complications. Nabor Orozco, physician logging assistant, was present for the entire procedure. His assistance was required for proper patient positioning, prepping and draping, surgical exposure, retraction, performed the technical details of the operation, placement implants, closure of the incision site, placement of postoperative sterile bandage. I attest to the content of the Intraoperative Record and any orders documented therein. Any exceptions are noted below.
--- NOTE | 2025-02-01 16:26 | Anesthesiology Progress Note ---
Date of Service February 01, 2025 Anesthesia Post Procedure Vital Signs Vital Signs: Temp Pulse Pulse Pulse Resp BP BP 02/01/25 16:20 80 18 135/103 H 02/01/25 16:10 97.7 F 82 16 144/96 H 02/01/25 16:00 94 H 20 129/98 02/01/25 15:50 90 24 137/94 02/01/25 15:39 97.5 F L 101 H 22 143/89 H 02/01/25 12:58 98.1 F 86 18 152/108 H 02/01/25 11:11 98.1 F 77 16 141/93 H 02/01/25 08:06 97.2 F L 83 16 137/92 02/01/25 08:00 02/01/25 08:00 02/01/25 07:55 101 H 16 02/01/25 07:26 81 02/01/25 03:15 85 02/01/25 02:22 78 12 02/01/25 01:39 02/01/25 01:19 02/01/25 01:19 97.5 F L 88 22 144/89 H 02/01/25 01:19 02/01/25 00:47 85 14 02/01/25 00:13 01/31/25 23:39 97.5 F L 86 26 H 144/89 H 01/31/25 23:39 01/31/25 23:33 99 H 14 01/31/25 23:00 83 20 131/92 01/31/25 22:31 93 H 17 136/88 01/31/25 22:00 90 20 155/99 H 01/31/25 22:00 82 20 132/94 01/31/25 21:30 85 23 154/98 H 01/31/25 21:00 79 17 142/92 H 01/31/25 20:31 01/31/25 20:30 89 18 143/91 H 01/31/25 20:28 22 01/31/25 20:00 145/114 H 01/31/25 19:30 74 26 H 158/117 H 01/31/25 19:00 81 26 H 163/88 H 01/31/25 18:45 77 01/31/25 18:35 01/31/25 18:27 97.9 F 71 20 166/104 H 01/31/25 18:17 79 22 163/88 H Pulse Ox Pulse Ox O2 Del Method O2 Del Method O2 Flow Rate O2 Flow Rate FiO2 02/01/25 16:20 93 Oxymask 4 02/01/25 16:10 93 Oxymask 4 02/01/25 16:00 93 Oxymask 4 02/01/25 15:50 92 Oxymask 6 02/01/25 15:39 92 Oxymask 12 02/01/25 12:58 93 Nasal Cannula 3 02/01/25 11:11 94 Room Air 02/01/25 08:06 97 High Flow Nasal Cannula 40 02/01/25 08:00 4 02/01/25 08:00 Nasal Cannula 4 02/01/25 07:55 96 High Flow Nasal Cannula 40 50 02/01/25 07:26 02/01/25 03:15 02/01/25 02:22 95 50 02/01/25 01:39 50 02/01/25 01:19 CPAP 40 02/01/25 01:19 87 L CPAP 24 02/01/25 01:19 90 CPAP 24 02/01/25 00:47 95 24 02/01/25 00:13 95 High Flow Nasal Cannula 50 80 01/31/25 23:39 83 L High Flow Nasal Cannula 50 01/31/25 23:39 83 L High Flow Nasal Cannula 50 01/31/25 23:33 95 High Flow Nasal Cannula 40 40 01/31/25 23:00 95 High Flow Nasal Cannula 40 50 01/31/25 22:31 88 L Oxymask 8 01/31/25 22:00 93 Oxymask 8 01/31/25 22:00 92 Oxymask 8 01/31/25 21:30 90 Oxymask 8 01/31/25 21:00 93 Nasal Cannula, Oxymask 8 01/31/25 20:31 90 Nasal Cannula 3 01/31/25 20:30 90 Nasal Cannula 4 01/31/25 20:28 97 Room Air 01/31/25 20:00 88 L Nasal Cannula 4 01/31/25 19:30 90 Room Air 01/31/25 19:00 92 Room Air 01/31/25 18:45 01/31/25 18:35 93 Room Air 01/31/25 18:27 93 Room Air 01/31/25 18:17 93 Room Air Pain Intensity Right Hip: Pain Intensity: 8 Transfer of Care Handoff Completed per policy Notes Mental Status: alert / awake / arousable and participated in evaluation Patient Amnestic to Procedure: Yes Nausea / Vomiting: adequately controlled Pain: adequately controlled Airway Patency, RR, SpO2: stable & adequate BP & HR: stable & adequate Hydration State: stable & adequate Anesthetic Complications: no major complications apparent and Pt Satisfied with anesthetic care
--- NOTE | 2025-02-01 16:59 | Hospitalist Progress Note ---
Date of Service February 01, 2025 Assessment & Plan (1) Femur fracture, right: (2) Fall: (3) Hypoxia: Plan 89-year-old female PMHx CAD with stent to LAD, AAA repair (2006), CKD, A-fib on Eliquis, HTN, HLD, hyperparathyroidism, and history of polycythemia presenting from [facility] after a witnessed ground-level fall the night of arrival, suspected to be mechanical in nature. Her evaluation is overall unremarkable with exception of slightly elevated creatinine which appears to be at her baseline at 1.36, and hip/pelvis XR revealing R hip fracture. #R femur fracture/Fall Pt presenting for witnessed fall, after tripping over her walker per report, no symptoms prior to and no LOC; has received multiple doses of pain medication. Patient did not hit her head, she is on Eliquis with last dose suspected to have been 0700 on 01/31/2025. She continues to have significant pain, ordered additional pain management. Ortho to be consulted for surgical intervention. 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 Pt declines Ativan use in the setting of significant anxiety because her family members had a "bad reaction" to it. Opted for further pain management, so Dilaudid 2mg IV was provided to assist in pain and anxiety at time of admission. - CBC H&H stable 15.1/46.7; CMP Cr 1.39, BUN 27, glucose 106; CK 35; troponin 6 - BMP am - CXR atelectasis and prominent lung markings - Hip/pelvis XR displaced transcervical or basicervical fracture of R femur - EKG Afib w/ RBBB - Zofran prn N/V - Acetaminophen IV for pain management, pending clinical course - PT/OT will be needed - Orthopedic surgery completed; right cemented hemiarthroplasty, patient tolerated procedure well w/o complications - Resume Eliquis tomorrow #Hypoxia Presenting w/ fall at home, found to be hypoxic in admission. She is s/p Dilaudid, also in the setting of ONEIDA which she does not use CPAP for. Prior h/o smoking, no O2 at baseline. Pt placed on high-flow at time of admission for additional respiratory support given continued hypoxia on Oxy-mask. ~ 0015 on 02/01, pt continued to require increased O2 - BiPAP ordered, Narcan 0.1mg x 1 given, and will provide small diuresis. If continued worsening hypoxia despite these interventions, will order chest CTA. - CBC no leukocytosis, trop 6.0; VBGs pH 7.24, pCO2 60; procal 0.05, BNP 634 - VBGs am - CXR lower lung opacities likely atelectasis, prominent lung markings may be 2/2 technique vs pulmonary vasculature congestion - No O2 at baseline; Wean as tolerable - Incentive spirometry #CKD, stage III Follows with nephro, most recent visit being 08/06/2024. H/o atrophic L kidney, angiography w/ stenotic L renal artery not amenable to angioplasty. Baseline Cr 1.9. No evidence of AUSTYN at time of admission. - Cr 1.39, BUN 27 - BMP am - UA pending #AFib- EKG at admission Afib w/ RBBB @ 82bpm; metoprolol, Eliquis - HOLD Eliquis, continue metoprolol #HTN- Amlodipine, metoprolol - continue #CAD s/p LAS stent/AAA- AAA repaired (2006); Stent to LAD; ASA, rosuvastatin - continue statin, hold ASA #Polycythemia- Follows with heme/onc, most recent visit being 11/03/2024. Pt is to have phlebotomy monthly for Hct > 50%; No renal mass identified 10/2024. H/o ONEIDA, declines CPAP - CBC am #Hyperparathyroidism- S/p bilateral resection lower parathyroid glands (2005); Ca 9.1 at admission; Sensipar - continue #GERD- Famotidine - continue Daughter, Letha, would like to be updated daily. Specifically after ortho evaluates patient 02/01 if she is not yet visiting her mother. Dispo: Admit, med/tele - hypoxia VTE Prophylaxis: On Eliquis - HOLD Admission and Anticipated Discharge Date Admission Date: January 31, 2025 Supervising Physician Co-Signing Physician Notes I personally examined the patient and verified all low points of history and exam, discussed case, and agree with decision making with Dr Winkler seen fairly shortly postopa bit groggy but no complaints. Vitals noted, in general she is awake and alert pleasant no distress. HEENT normocephalic atraumatic mucous membranes moist. Lungs are clear without rales rhonchi or wheezes no accessory muscle use good effort. Skin without rashes pallor or ic terus. Neuro without focal deficits. Traumatic/age related osteoporotic right proximal femur fracturestanding/ground-level fallnow status post surgery. Stable at this time. acute hypercarbic and hypoxic respiratory failure present on admissionprobably atelectasis compounded by narcotics. Reasonably stable at this time, continue to follow closely. CKD stage IIIfollow chronic A-fib/hypertension/CADoverall stable resume Eliquis hopefully as soon as tomorrow. Continue to follow closely. PT/OT eval and treat. Subjective Patient is seen at bedside this AM and reports feeling very anxious about upcoming procedure. Patient's 4L O2 via NC is removed and examination and history is gathered. Patient reports that she has many chronic medical conditions and worries about her condition s/p hip surgery. Patient is reassured that the different teams participating her care are aware of these medical diagnoses and we are making sure that she is optimized for surgery. At the end of visit patient reports no dyspnea at rest. Patient is afebrile and hemodynamically stable. Physical Exam Physical Exam: General: patient resting comfortably, NAD, non-toxic in appearance, answers questions appropriately. Skin: warm, dry, intact HEENT: NC/AT, anicteric sclera, conjunctiva without injection, moist mucus membranes. Heart: +S1/S2, regular, no m/r/g Lungs: equal air entry bilaterally, no rales/rhonchi/wheezes Abd: +BS, soft, NT/ND Ext: warm, no clubbing/cyanosis or edema Neuro: nonfocal, speech intact, no facial droop, moving all extremities. Results & Data Results & Data Vital Signs (Past 12 Hours) Vital Signs Temp Pulse Pulse Pulse Resp BP Pulse Ox 02/01/25 16:56 37.0 C 88 16 119/82 88 L 02/01/25 16:20 80 18 135/103 H 93 02/01/25 16:10 36.5 C 82 16 144/96 H 93 02/01/25 16:00 94 H 20 129/98 93 02/01/25 15:50 90 24 137/94 92 02/01/25 15:39 36.4 C L 101 H 22 143/89 H 92 02/01/25 12:58 36.7 C 86 18 152/108 H 93 02/01/25 11:11 36.7 C 77 16 141/93 H 94 02/01/25 08:06 36.2 C L 83 16 137/92 97 02/01/25 08:00 02/01/25 08:00 02/01/25 07:55 101 H 16 96 02/01/25 07:26 81 O2 Del Method O2 Del Method O2 Flow Rate O2 Flow Rate FiO2 02/01/25 16:56 Oxymask 3 02/01/25 16:20 Oxymask 4 02/01/25 16:10 Oxymask 4 02/01/25 16:00 Oxymask 4 02/01/25 15:50 Oxymask 6 02/01/25 15:39 Oxymask 12 02/01/25 12:58 Nasal Cannula 3 02/01/25 11:11 Room Air 02/01/25 08:06 High Flow Nasal Cannula 40 02/01/25 08:00 4 02/01/25 08:00 Nasal Cannula 4 02/01/25 07:55 High Flow Nasal Cannula 40 50 02/01/25 07:26 (1) Femur fracture, right Encounter type: initial encounter Femur location: other head and neck Fracture type: closed Qualified Code(s): S72.091A - Other fracture of head and neck of right femur, initial encounter for closed fracture
[2025-02-01] MEDS ORDERED: NITROGLYCERIN SL 0.4 MG/TAB TAB SL PRN (17:18)
[2025-02-01] MEDS ORDERED: ALBUTEROL HFA 8 GM INHALER INH PRN (17:18)
--- NOTE | 2025-02-01 18:10 | Billing Data ---
Date of Service February 01, 2025 Coding Level of Care Code 75662 SUB INP/OBS CARE MIN
[2025-02-01] MEDS: TRANEXAMIC ACID / 0.7% NACL 1000MG/100ML BAG IV ONE (18:28)
--- NOTE | 2025-02-01 18:29 | XRay Report ---
Exam(s): XR RIGHT HIP EXAM: XR Right Hip With Pelvis When Performed, 2 or 3 Views CLINICAL HISTORY: Reason for exam: Post-Operative implant position. TECHNIQUE: Two or three views of the right hip with pelvis when performed. COMPARISON: Right hip and pelvis radiographs on 01/31/2025 FINDINGS: Bones/joints: Status post right hip arthroplasty. No evidence of hardware complication. No acute fracture. No dislocation. Soft tissues: Soft tissue swelling, gas, and skin yamilet about the right hip, compatible with recent surgery. IMPRESSION: Status post right hip arthroplasty. No evidence of hardware complication. Electronically signed by: Zhang Castañeda M.D. 02/01/25 18:28 PM
[2025-02-01] MEDS: FAMOTIDINE 20 MG TAB PO SCH (21:16)
[2025-02-01] MEDS: POTASSIUM CHLORIDE CRTAB 20 MEQ TABCR PO SCH (21:16)
[2025-02-01] MEDS: METOPROLOL SUCC 25MG EXT REL TAB PO SCH (21:17)
[2025-02-02 06:08] LABS: Hematocrit (blood only) 41.7 % (37.0-47.0); Hemoglobin 13.6 g/dl (12.0-16.0); Immature Granulocytes # (auto) 0.10 K/uL (0.01-0.20); Immature Granulocytes % (auto) 0.7 %; Mean Corpuscular Hemoglobin 25.5 pg (25.0-34.0); Mean Corpuscular Volume 78.2 fL (80.0-100.0); Platelet Count 181 K/uL (130-400); RDW Standard Deviation 53.8 fL (36.4-46.3); Red Blood Count 5.33 M/uL (4.20-5.40); White Blood Count 14.58 K/ul (4.8-10.8)
[2025-02-02 06:30] LABS: Anion Gap 8.0 (3-11); Blood Urea Nitrogen 36.0 mg/dl (6-23); Calcium 9.0 mg/dl (8.6-10.3); Carbon Dioxide 24.0 mmol/L (21-32); Chloride 110.0 mmol/L (98-107); Creatinine Clr Calc Pharmacy 22.8 ml/min; Glucose 119.0 mg/dl (70-99(Fasting)); Potassium 5.1 mmol/L (3.5-5.1); Sodium 142.0 mmol/L (136-145)
[2025-02-02] MEDS: CHOLECALCIFEROL 25 MCG (1000 UNITS) TAB PO SCH (09:32)
[2025-02-02] MEDS: CYANOCOBALAMIN (B-12) 500 MCG TABLET PO SCH (09:32)
[2025-02-02] MEDS: METOPROLOL SUCC 50MG EXT REL TAB PO SCH (09:33)
[2025-02-02] MEDS: MAGNESIUM OXIDE 400 MG TAB PO SCH (09:33)
[2025-02-02] MEDS: ASPIRIN 81 MG ECTAB PO SCH (09:33)
[2025-02-02] MEDS: ROSUVASTATIN CALCIUM 20 MG TAB PO SCH (09:33)
[2025-02-02] MEDS: CINACALCET HCL 30 MG TAB PO SCH (09:34)
[2025-02-02] MEDS: LIDOCAINE 5% 1 PATCH TD SCH (09:34)
--- NOTE | 2025-02-02 09:49 | Orthopedic Progress Note ---
Date of Service February 02, 2025 Assessment & Plan (1) Closed fracture of proximal end of right femur: * Continue Current Treatment * S/p right hip hemiarthroplasty * Weight bearing status: WBAT with hip precautions * Daily treatment: Physical Therapy/ Occupational Therapy per protocol * Pain control * Continue to monitor for ABLA * DVT prophylaxis, ok to resume from ortho standpoint * Disposition: TBD * Office/hospital f/u 2 weeks for progress check and staple/suture removal * Remainder care per primary team Subjective . Active Problems: S/p right hip hemiarthroplasty POD 1 89 y/o female s/p right hip hemiarthroplasty. Doing well overall, pain managed and improved function. Denies fever/chills, chest pain/SOB, nausea/vomiting. Otherwise no complaints. Review of Systems All systems reviewed & are unremarkable except as noted in HPI & below. Physical Exam . * General: Alert and oriented, no acute distress * Constitutional: well-developed, well-nourished. * Respiratory: Normal respiratory effort, no distress * Gastrointestinal: No tenderness to palpation, no rigidity or guarding. * Skin: No rash or lesion. * Neurologic: Grossly normal * Musculoskeletal: Right hip surgical dressing CDI, not removed for exam. Otherwise no obvious deformity or overlying skin changes. Diffuse TTP proximal thigh and hip region. Otherwise no specific tenderness of distal thigh, lower leg, foot/ankle. AROM hip flexion intact. AROM foot/ankle intact. Sensation intact plantar/dorsal foot. Brisk capillary refill. Results & Data Results & Data Laboratory Results . Diagnostic Findings . Hip X-Ray 02/01/25 17:18 Exam(s): XR RIGHT HIP EXAM: XR Right Hip With Pelvis When Performed, 2 or 3 Views CLINICAL HISTORY: Reason for exam: Post-Operative implant position. TECHNIQUE: Two or three views of the right hip with pelvis when performed. COMPARISON: Right hip and pelvis radiographs on 01/31/2025 FINDINGS: Bones/joints: Status post right hip arthroplasty. No evidence of hardware complication. No acute fracture. No dislocation. Soft tissues: Soft tissue swelling, gas, and skin yamilet about the right hip, compatible with recent surgery. IMPRESSION: Status post right hip arthroplasty. No evidence of hardware complication. Electronically signed by: Zhang Castañeda M.D. 02/01/25 18:28 PM PG Care Time/CCT Total # of Minutes Spent Total Time Spent with Patient: Total time spent is greater than 50% in coordination of care (as documented) at patient's floor/unit and/or counseling patient: Coding Level of Care Code 35070 Post Operative Follow-Up Diagnoses Closed fracture of proximal end of right femur S72.001A
[2025-02-02 10:10] LABS: Prealbumin 17.4 mg/dl (20-40)
[2025-02-02 15:49] VITALS: RESP 16
--- NOTE | 2025-02-02 17:36 | Hospitalist Progress Note ---
Date of Service February 02, 2025 Assessment & Plan (1) Femur fracture, right: (2) Fall: (3) Hypoxia: Plan 89-year-old female PMHx CAD with stent to LAD, AAA repair (2006), CKD, A-fib on Eliquis, HTN, HLD, hyperparathyroidism, and history of polycythemia presenting from [facility] after a witnessed ground-level fall the night of arrival, suspected to be mechanical in nature. Her evaluation is overall unremarkable with exception of slightly elevated creatinine which appears to be at her baseline at 1.36, and hip/pelvis XR revealing R hip fracture. #R femur fracture/Fall, Presumed osteoporotic fracture Pt presenting for witnessed fall, after tripping over her walker per report, no symptoms prior to and no LOC; has received multiple doses of pain medication. Patient did not hit her head, she is on Eliquis with last dose suspected to have been 0700 on 01/31/2025. She continues to have significant pain, ordered additional pain management. Ortho to be consulted for surgical intervention. 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 Pt declines Ativan use in the setting of significant anxiety because her family members had a "bad reaction" to it. Opted for further pain management, so Dilaudid 2mg IV was provided to assist in pain and anxiety at time of admission. - stable postop, PT/OT eval and treat, anticipate SNF with rehab emphasis once bed is available #Hypoxia overall suspect atelectasis. Exam reassuring, lack of symptoms reassuring. Oxygen requirement has been stable. Continue to follow, encourage movement/etc., anticipate resolution over time. #CKD, stage III Follows with nephro, most recent visit being 08/06/2024. H/o atrophic L kidney, angiography w/ stenotic L renal artery not amenable to angioplasty. Baseline Cr 1.9. Creatinine did elevate some yesterday into today, but still at baseline range. With hemodynamic stability, will hold off on IV fluids at this time. #AFib- Rate controlled, resuming anticoagulation today #HTN- Amlodipine, metoprolol - continue #CAD s/p LAS stent/AAA- AAA repaired (2006); Stent to LAD; ASA, rosuvastatin - continue statin, hold ASA #Polycythemia- Follows with heme/onc, most recent visit being 11/03/2024. Pt is to have phlebotomy monthly for Hct > 50%; No renal mass identified 10/2024. H/o ONEIDA, declines CPAP - CBC am #Hyperparathyroidism- S/p bilateral resection lower parathyroid glands (2005); Ca 9.1 at admission; Sensipar - continue #GERD- Famotidine - continue Daughter, Letha, would like to be updated daily. Specifically after ortho evaluates patient 02/01 if she is not yet visiting her mother. Dispo: stable for med/surge, anticipate SNF with rehab emphasis once bed available. VTE Prophylaxis: On Eliquis This document was dictated utilizing [employer]. Please excuse any grammatical errors that may be secondary to use of this software. Admission and Anticipated Discharge Date Admission Date: January 31, 2025 Supervising Physician Co-Signing Physician Notes I personally examined the patient and verified all low points of history and exam, discussed case, and agree with decision making with Dr Winkler seen fairly shortly postopa bit groggy but no complaints. Vitals noted, in general she is awake and alert pleasant no distress. HEENT normocephalic atraumatic mucous membranes moist. Lungs are clear without rales rhonchi or wheezes no accessory muscle use good effort. Skin without rashes pallor or icterus. Neuro without focal deficits. Traumatic/age related osteoporotic right proximal femur fracturestanding/ground-level fallnow status post surgery. Stable at this time. acute hypercarbic and hypoxic respiratory failure present on admissionprobably atelectasis compounded by narcotics. Reasonably stable at this time, continue to follow closely. CKD stage IIIfollow chronic A-fib/hypertension/CADoverall stable resume Eliquis hopefully as soon as tomorrow. Continue to follow closely. PT/OT eval and treat. Subjective overall feeling reasonably well. Leg hurts with movement. No other complaints. Notes that she lives at personal-care. Understands that she will likely need to go to skilled for a little while. No other acute problems. Review of Systems Review of Systems: All systems reviewed & are unremarkable except as noted in HPI & below Physical Exam Physical Exam: General she is awake and alert pleasant no distress. HEENT normocephalic atraumatic mucous membranes moist. Difficult lung exam due to pain with movement and how she is positioned in the chair, but lungs seem to be overall clear without rales rhonchi wheezes. No accessory muscle use good effort. Skin without rashes pallor or icterus. Neuro without focal deficits. Results & Data Results & Data Vital Signs (Past 12 Hours) Vital Signs Temp Pulse Pulse Resp BP Pulse Ox O2 Del Method 02/02/25 15:28 97.7 F 88 16 136/81 91 Room Air 02/02/25 12:04 98.2 F 88 20 128/92 96 Nasal Cannula 02/02/25 10:58 97.7 F 97 H 16 120/85 93 Nasal Cannula 02/02/25 07:41 98.1 F 97 H 16 137/91 93 Oxymask 02/02/25 07:21 88 O2 Flow Rate 02/02/25 15:28 02/02/25 12:04 3 02/02/25 10:58 3 02/02/25 07:41 3 02/02/25 07:21 PG Care Time/CCT Total # of Minutes Spent Total Time Spent with Patient: Total time spent is greater than 50% in coordination of care (as documented) at patient's floor/unit and/or counseling patient: Coding Level of Care Code 76087 SUB INP/OBS CARE 3/50MIN Diagnoses Other closed fracture of head or neck of right femur, initial encounter S72.091A Encounter type: initial encounter Femur location: other head and neck Fracture type: closed Fall W19.XXXA Hypoxia R09.02 (1) Femur fracture, right Encounter type: initial encounter Femur location: other head and neck Fracture type: closed Qualified Code(s): S72.091A - Other fracture of head and neck of right femur, initial encounter for closed fracture
--- NOTE | 2025-02-02 17:37 | Billing Data ---
Date of Service February 02, 2025 Coding Level of Care Code 95694 SUB INP/OBS CARE MIN
[2025-02-02] MEDS: APIXABAN 2.5 MG TAB PO SCH (20:00)
[2025-02-02] MEDS: SODIUM CHLORIDE 0.65% NA SOLN 45 ML (OCEAN) NAE PRN (21:07)
[2025-02-03] MEDS: ACETAMINOPHEN 500 MG TAB PO SCH (01:56)
[2025-02-03 07:30] VITALS: BP 129/85; TEMP 98.2; O2SAT 93
[2025-02-03 08:11] LABS: Hematocrit (blood only) 35.5 % (37.0-47.0); Hemoglobin 11.4 g/dl (12.0-16.0); Immature Granulocytes # (auto) 0.05 K/uL (0.01-0.20); Immature Granulocytes % (auto) 0.4 %; Mean Corpuscular Hemoglobin 25.4 pg (25.0-34.0); Mean Corpuscular Volume 79.1 fL (80.0-100.0); Platelet Count 154 K/uL (130-400); RDW Standard Deviation 54.9 fL (36.4-46.3); Red Blood Count 4.49 M/uL (4.20-5.40); White Blood Count 11.39 K/ul (4.8-10.8)
--- NOTE | 2025-02-03 08:13 | Orthopedic Progress Note ---
Date of Service February 03, 2025 Assessment & Plan (1) Closed fracture of proximal end of right femur: * Continue Current Treatment * S/p right hip hemiarthroplasty * Weight bearing status: WBAT with hip precautions * Daily treatment: Physical Therapy/ Occupational Therapy per protocol * Pain control * Continue to monitor for ABLA * DVT prophylaxis, ok to resume from ortho standpoint * Disposition: TBD * Office/hospital f/u 2 weeks for progress check and staple/suture removal * Remainder care per primary team Subjective Active Problems: S/p right hip hemiarthroplasty POD 2 89 y/o female s/p right hip hemiarthroplasty. Doing well overall, pain managed and improved function. Denies fever/chills, chest pain/SOB, nausea/vomiting. Otherwise no complaints. Review of Systems All systems reviewed & are unremarkable except as noted in HPI & below. Physical Exam * General: Alert and oriented, no acute distress * Constitutional: well-developed, well-nourished. * Respiratory: Normal respiratory effort, no distress * Gastrointestinal: No tenderness to palpation, no rigidity or guarding. * Skin: No rash or lesion. * Neurologic: Grossly normal * Musculoskeletal: Right hip surgical dressing CDI, not removed for exam. Otherwise no obvious deformity or overlying skin changes. Diffuse TTP proximal thigh and hip region. Otherwise no specific tenderness of distal thigh, lower leg, foot/ankle. AROM hip flexion intact. AROM foot/ankle intact. Sensation intact plantar/dorsal foot. Brisk capillary refill. Results & Data Results & Data Laboratory Results . Diagnostic Findings . PG Care Time/CCT Total # of Minutes Spent Total Time Spent with Patient: Total time spent is greater than 50% in coordination of care (as documented) at patient's floor/unit and/or counseling patient: Coding Level of Care Code 80363 Post Operative Follow-Up Diagnoses Closed fracture of proximal end of right femur S72.001A
[2025-02-03 08:33] LABS: Anion Gap 7.0 (3-11); Blood Urea Nitrogen 44.0 mg/dl (6-23); Calcium 8.6 mg/dl (8.6-10.3); Carbon Dioxide 25.0 mmol/L (21-32); Chloride 108.0 mmol/L (98-107); Creatinine Clr Calc Pharmacy 22.4 ml/min; Glucose 88.0 mg/dl (70-99(Fasting)); Potassium 4.5 mmol/L (3.5-5.1); Sodium 140.0 mmol/L (136-145)
--- NOTE | 2025-02-03 09:32 | Discharge Summary ---
Date of Service February 03, 2025 Admission HPI Per Admitting Provider 89-year-old female PMHx CAD with stent to LAD, AAA repair (2006), CKD, A-fib on Eliquis, HTN, HLD, hyperparathyroidism, and history of polycythemia presenting from [facility] after a witnessed ground-level fall the night of arrival, suspected to be mechanical in nature. Her daughter, Letha is present in room at time of visit, helps to provide some history. Does note that the patient is very anxious at baseline and discontinued her SSRIs by herself, but continues to have rather significant anxiety at her baseline. Patient states that she was getting up from the dinner table when she went to grab her walker and she tripped over the wheel, landing on the ground and wedged between 2 larger items. She states that she immediately had R hip pain and was unable to get up. She denies any symptoms prior to the event occurring, and denies any loss of consciousness. She did not hit her head or any other parts of her body. She states that she took her Eliquis the morning of arrival around [id number]. Of note, the patient did receive her influenza vaccine approximately 3 days [employer] and her daughter states that she may be a little more short of breath than normal which was noticed with some exertion, that the patient is without any additional complaints. She continues to be in significant discomfort during the exam, so history is very limited. She continues to states that her leg feels as though it is cramping and that it is "so painful." She is [place]. ED evaluation reveals CBC without leukocytosis, H&H 15.1/46.7 (stable); CMP chloride 108, creatinine 1.36, BUN 27, glucose 106; total CK 35, troponin 6; CXR lower lung opacities likely atelectasis, prominent lung markings secondary to technique versus pulmonary vascular congestion; hip/pelvis XR displaced transcervical or basicervical fracture of the R femur.; Provided with Dilaudid 0.5 mg IV x [address] see Dr[address] Sanchez's attestation for adjustments/additions to treatment plan. Admission Exam Per Admitting Provider General: Appears very uncomfortable during initial evaluation Skin: Warm and dry, chronic skin changes BLE Head: Normocephalic, atraumatic Eyes: PERRL, conjunctivae clear, sclera non-icteric ENT: External ear and ear canal without swelling, [place], hearing aides; nose atraumatic; good dentition, tongue normal appearance, pharynx normal Neck: Supple, no LAD Cardio: RRR, no M/G/R, S1 and S2 normal Resp: No respiratory distress, Lungs CTA in all lobes bilaterally, no wheezes, rales, or rhonchi Abdomen: Soft, symmetric, nontender; No masses or hepatosplenomegaly; Bowel sounds normoactive MSK: Pt has both legs pulled close to her body, will not extend them; she is tender over the R hip, normal pulses; pulses palpable and equal throughout; no edema. Neuro: Awake, alert; Sensation intact bilaterally; CN grossly intact Psych: Tearful, anxious. Principal Diagnosis R. hip fracture s/p R. hemiarthroplasty Discharge Exam General: patient resting comfortably, NAD, non-toxic in appearance, answers questions appropriately. Skin: warm, dry, intact HEENT: NC/AT, anicteric sclera, conjunctiva without injection, moist mucus membranes. Heart: +S1/S2, regular, no m/r/g Lungs: equal air entry bilaterally, no rales/rhonchi/wheezes Abd: +BS, soft, NT/ND Ext: warm, no clubbing/cyanosis or edema Neuro: nonfocal, speech intact, no facial droop, moving all extremities. Discharge Data Allergies Allergy/AdvReac Type Severity Reaction Status Date / Time adhesive Allergy Unknown RASH Verified 08/07/24 13:34 atorvastatin Allergy Unknown . Unverified 01/31/25 21:40 cephalexin [From Keflex] Allergy Unknown . Unverified 01/31/25 21:40 codeine Allergy Unknown SICK Verified 01/31/25 21:39 latex Allergy Unknown "Rash, Verified 01/31/25 21:39 welts" pineapple Allergy Unknown . Verified 01/31/25 21:39 Consultations 01/31/25 20:26 Consult Orthopedic Surgery Routine ED Decision to Admit Stat 01/31/25 23:39 Consult Anesthesiology Routine Procedures Performed Operation Date: 02/01/25 08:40 Actual Procedures p Right Hip Cemented Hemiarthroplasty(Right) - Erick Sanchez MD Hospital Course (1) Femur fracture, right: (2) Fall: (3) Hypoxia: Plan 89-year-old female PMHx CAD with stent to LAD, AAA repair (2006), CKD, A-fib on Eliquis, HTN, HLD, hyperparathyroidism, and history of polycythemia presenting from [facility] after a witnessed ground-level fall the night of arrival, suspected to be mechanical in nature. Her evaluation is overall unremarkable with exception of slightly elevated creatinine which appears to be at her baseline at 1.36, and hip/pelvis XR revealing R hip fracture. #R femur fracture/Fall Pt presenting for witnessed fall, after tripping over her walker per report, no symptoms prior to and no LOC; has received multiple doses of pain medication. Patient did not hit her head, she is on Eliquis with last dose suspected to have been 0700 on 01/31/2025. She continues to have significant pain, ordered additional pain management. Ortho to be consulted for surgical intervention. 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 Pt declines Ativan use in the setting of significant anxiety because her family members had a "bad reaction" to it. Opted for further pain management, so Dilaudid 2mg IV was provided to assist in pain and anxiety at time of admission. - CBC H&H stable 15.1/46.7; CMP Cr 1.39, BUN 27, glucose 106; CK 35; troponin 6 - BMP am - CXR atelectasis and prominent lung markings - Hip/pelvis XR displaced transcervical or basicervical fracture of R femur - EKG Afib w/ RBBB - Zofran prn N/V - Acetaminophen IV for pain management, pending clinical course - PT/OT will be needed - Orthopedic surgery completed; right cemented hemiarthroplasty, patient tolerated procedure well w/o complications - Eliquis resumed 24 hours s/p R. hemiarthroplasty procedure #Hypoxia Presenting w/ fall at home, found to be hypoxic in admission. She is s/p Dilaudid, also in the setting of ONEIDA which she does not use CPAP for. Prior h/o smoking, no O2 at baseline. Pt placed on high-flow at time of admission for additional respiratory support given continued hypoxia on Oxy-mask. ~ 0015 on 02/01, pt continued to require increased O2 - BiPAP ordered, Narcan 0.1mg x 1 given, and will provide small diuresis. If continued worsening hypoxia despite these interventions, will order chest CTA. - CBC no leukocytosis, trop 6.0; VBGs pH 7.24, pCO2 60; procal 0.05, BNP 634 - VBGs am - CXR lower lung opacities likely atelectasis, prominent lung markings may be 2/2 technique vs pulmonary vasculature congestion - No O2 at baseline; Wean as tolerable - Incentive spirometry #CKD, stage III Follows with nephro, most recent visit being 08/06/2024. H/o atrophic L kidney, angiography w/ stenotic L renal artery not amenable to angioplasty. Baseline Cr 1.9. No evidence of AUSTYN at time of admission. - Cr 1.39, BUN 27 - BMP am - UA unlikely infectious, etiology likely dehydration. Urine cx: negative #AFib- EKG at admission Afib w/ RBBB @ 82bpm; metoprolol, Eliquis - HOLD Eliquis, continue metoprolol #HTN- Amlodipine, metoprolol - continue #CAD s/p LAS stent/AAA- AAA repaired (2006); Stent to LAD; ASA, rosuvastatin - continue statin, hold ASA #Polycythemia- Follows with heme/onc, most recent visit being 11/03/2024. Pt is to have phlebotomy monthly for Hct > 50%; No renal mass identified 10/2024. H/o [place], declines CPAP - CBC am #Hyperparathyroidism- S/p bilateral resection lower parathyroid glands (2005); Ca 9.1 at admission; Sensipar - continue #GERD- Famotidine - continue Daughter, Letha, would like to be updated daily. Specifically after ortho evaluates patient 02/01 if she is not yet visiting her mother. Dispo: Admit, med/tele - hypoxia VTE Prophylaxis: On Eliquis - HOLD Total Time Total Time Spent Total Time Spent (In Minutes): <30 Discharge Plan Discharge Items Patient Disposition: Transfer Nursing Home Fac Reason For Visit: FALL,R FEMUR FX, HYPOXIA Discharge Diagnosis: Right Hip Arthroplasty for Fracture Condition on Discharge: Fair Activity: Per Instructions section Activity Comment: Follow/Obey hip precautions at all times. Weightbearing: Full weightbearing Weightbearing Comment: Weightbear as tolerated obeying hip precautions at all times. Non-emergency contact: Surgeon Call non-emergency contact if: your symptoms worsen, your temperature is above 101.5, your wound has increased redness and your wound has increased drainage Follow-up/Referrals: Juan Mcqueen [Primary Care Provider] - Erick Sanchez MD [Physician] - (Orthopedic follow-up 2-3 weeks from surgery date.) Diet: Regular Addtl Attending Provider Instructions: ACTIVITY RECOMMENDATIONS: Diet: * You may resume previous diet. Physical Therapy: * Aggressive physical therapy is not usually needed. You will learn to take care of yourself safely and walk. * Follow the "Hip Precautions Instructions." * In some cases, the dialysis social worker at the hospital will arrange to have a therapist come to your house for the first couple of weeks to help you learn these skills. * You need to practice on your own or with the help of a family member as needed. * When you learn these skills, most of the therapy can be done on your own. Home Exercise: * You were shown a series of exercises in the hospital. Do these exercises three to four times each day including the exercises you were shown in physical therapy. Walking: * Get up and walk several times each day. For the first four weeks, try not to stand or walk for more than one hour at a time. If you do stand or walk for more than one hour, you will not hurt anything, but your leg will likely swell. * As you feel comfortable, you may change from the walker or crutches to a cane and then to independent walking. MEDICATIONS: New Medicine: * You will likely be taking one or more of these medicines: 1. Tramadol - Take, as directed, when you need it, every six hours to control your pain. 2. Eliquis - Thins your blood to lessen the chance of forming a blood clot. * The most common side effects of pain medicine and iron are nausea and constipation. If nausea or constipation is too much of a problem or if you have any questions about your new medicines or doses, call [facility] at . We will try to help you manage these issues. "VERY IMPORTANT TO READ AND REVIEW" Pain: * The immediate post-operative period after hip replacement surgery is often quite painful. * You are given a prescription for pain medicine. You should take it, as directed, when you need it, especially before physical therapy and before going to bed. Pain that interferes with sleep is very common and can last several months. * You will likely need pain medicine for the first two to four weeks. It will not stop all of the pain. The pain will lessen and as you feel better, you may change to milder pain medicine such as Tylenol. * The most common side effects of pain medicine are nausea and constipation, so don't take more than you need. SPECIAL CARE INSTRUCTIONS: TEDs/Elastic Stockings: * The white elastic stockings help limit swelling and prevent blood clots from forming in your legs. The more you wear them, the more they work. * Wear them for six weeks. Incision Site Care: * Remove dressing postoperative day 2 and then shower. Keep direct shower pressure off the incision site. * After showering, cover yamilet with dry gauze and change daily or more frequently if the dressing is getting saturated with drainage. * May completely stop using bandage if wound is dry and no drainage * [place] are removed between 2 and 3 weeks post-op. If your follow-up appointment is made before 2 weeks, please have your appointment re- scheduled. It is too early to remove the yamilet. Prevention of Infection: * Take antibiotics one hour before any dental cleaning, dental work, urological procedure, gastrointestinal procedure or any invasive surgery in order to prevent your new joint from getting infected. * You may get the antibiotics from the doctor performing the procedure or you may call our office at before and we will call in a prescription to the pharmacy of your choice. Things to Watch For: * Drainage from the incision site that occurs more than one week after your surgery. * Severely increased leg pain or swelling. * Increased redness at the incision site. * Fever above 102 degrees Fahrenheit. * Unusual chest pain or shortness of breath. * Unusual pain or burning with urination. Call [facility] at with any of the above problems or if you have any questions about your medicines or recovery. FOLLOW UP VISIT: Make an appointment to see your doctor for approximately two weeks after surgery for a progress check and staple removal by calling the office at . Pending Studies at Discharge: No Stand-Alone Forms: My [facility] Skilled Items Patient informed of condition?: Yes DNR: No Discharge Level of Care: Skilled Communicable Disease: No Discharge Prognosis: Stable Lines: None Urinary Catheter: Yes Medications and DC Order Prescriptions: Continued nitroglycerin 0.4 mg tablet, sublingual 0.4 mg SL Q5M PRN (Reason: chest pain) cholecalciferol (vitamin D3) [D3-2000] 50 mcg (2,000 unit) capsule 50 mcg PO DAILY Qty: 90 2RF cinacalcet 30 mg tablet 30 mg PO DAILY Qty: 90 3RF magnesium glycinate 100 mg magnesium capsule 200 mg PO BID Eliquis 2.5 mg tablet 2.5 mg PO BID rosuvastatin 20 mg tablet 20 mg PO DAILY famotidine 20 mg tablet 20 mg PO BID aspirin 81 mg tablet,delayed release (DR/EC) 81 mg PO DAILY potassium chloride [Klor-Con M20] 20 mEq tablet,ER particles/crystals 20 meq PO TID metoprolol succinate 25 mg tablet extended release 24 hr 50 mg PO QAM lidocaine 4 % adhesive patch,medicated 1 patch TOPICAL DAILY Rx Instructions: APPLY TO RIGHT POSTERIOR BACK IN THE MORNING FOR BACK PAIN OFF IN THE EVENING AND REMOVE PER SCHEDULE cyanocobalamin (vitamin B-12) 1,000 mcg Tablet 1,000 mcg PO QAM amlodipine 5 mg tablet 5 mg PO HS acetaminophen [Tylenol Extra Strength] 500 mg Tablet 500 mg PO Q6H PRN (Reason: Pain) metoprolol succinate 25 mg tablet extended release 24 hr 25 mg PO HS albuterol sulfate 90 mcg/actuation HFA aerosol inhaler 2 puff INHALATION Q4H PRN (Reason: COUGH/CHEST TIGHTNESS, SHORTNESS OF BREATH) Saline Nasal 0.65 % Aerosol,[place] 2 spray INTRANASAL TID PRN (Reason: DRY NOSE/CONGESTION) Discharge Orders: Discharge Order (Routine); Ordered 02/03/25 Ordered By: Johnathon Winkler Admission Data Admit Date/Time: 01/31/25 22:53 Attending Provider: Isma Tobias Admit Provider: Shelby Sanchez Primary Care Provider: Juan Mcqueen Other Providers: Juan Mcqueen; Shelby Sanchez; Rodriguez Harrison; Pan Gonzalez Supervising Physician Co-Signing Physician Notes I personally examined the patient and verified all low points of history and exam, discussed case, and agree with decision making with Dr Winkler Feeling okay. No problems. Vitals noted, in general she is awake and alert pleasant no distress. HEENT normocephalic atraumatic mucous membranes moist. Lungs are clear without rales rhonchi or wheezes no accessory muscle use good effort. Skin without rashes pallor or icterus. Neuro without focal deficits. Traumatic/age related osteoporotic right proximal femur fracturestanding/ground-level fallnow status post surgery. Stable at this time. Outpatient bone health workup and management acute hypercarbic and hypoxic respiratory failure present on admissionprobably atelectasis compounded by narcotics. stable/slowly improving. Suspect we will be to wean her off of oxygen once she is moving more and breathing deeper. For now we will go to SNF/rehab emphasis with a small amount of supplemental oxygen (currently on 2 L) CKD stage IIIfollow periodically as outpatient. Creatinine in her baseline range. chronic A-fib/hypertension/CADoverall stable Stable for SNF/rehab emphasis. Otherwise as above. Resident Activity Tracking Resident Involvement: Resident Care Provided Care Provided: Adult [facility]
--- NOTE | 2025-02-03 12:44 | Billing Data ---
Date of Service February 03, 2025 Coding Level of Care Code 69400 IN/OBS DISCH 30 MIN/LESS
[2025-02-03 12:47] VITALS: PULSE 80
[2025-02-03] MEDS ORDERED: POLYETHYLENE (MIRALAX) 17 GM PACK PO SCH (18:00)
== END 2025-02-03 12:00 | DRG 521 ==
LOC: ED 18:27 → 2N 22:53 → SUATTDRO 22:53 → 2N 23:08